=== PATIENT | female | born 1935 | race Caucasian/White ===

== ENCOUNTER 2022-02-03 06:41 | Observation (INO) ==
--- NOTE | 2021-12-29 11:49 | PAT Medication Instructions ---
Medication Instructions Date of Service December 29, 2021 Home Medications Medication Instructions Recorded zolpidem 10 mg tablet 5 mg PO HS PRN #15 tab 11/12/21 cholecalciferol (vitamin D3) 50 mcg (2,000 unit) capsule 50 mcg PO QAM multivitamin 1 tab PO QAM rosuvastatin 20 mg tablet 20 mg PO HS zolpidem 10 mg tablet 5 mg PO HS PRN diclofenac sodium 1 % topical gel (Voltaren Arthritis Pain) 4 g TOPICAL QID PRN telmisartan 80 mg-hydrochlorothiazide 25 mg tablet 1 tab PO QAM tramadol 50 mg tablet 50 mg PO BID PRN STOP taking 24 hours before surgery diclofenac sodium 1 % topical gel (Voltaren Arthritis Pain) 4 g TOPICAL QID PRN DO NOT take the morning of surgery cholecalciferol (vitamin D3) 50 mcg (2,000 unit) capsule 50 mcg PO QAM multivitamin 1 tab PO QAM telmisartan 80 mg-hydrochlorothiazide 25 mg tablet 1 tab PO QAM Take morning of surgery With a small sip of water, OTHERWISE NOTHING TO EAT OR DRINK AFTER MIDNIGHT: tramadol 50 mg tablet 50 mg PO BID PRN (if needed) Take evening before surgery rosuvastatin 20 mg tablet 20 mg PO HS zolpidem 10 mg tablet 5 mg PO HS PRN (if needed) tramadol 50 mg tablet 50 mg PO BID PRN (if needed) Other Notes If you have any questions please call us at [phone] or [phone] or [phone] or [phone]
--- NOTE | 2021-12-31 14:18 | Anesthesiology Consultation ---
Date of Service December 31, 2021 Assessment & Plan (1) Encounter for pre-operative examination: Chart Review Chart Review: Acceptable Risk for Surgery (pending surgeon ordered PCP clearance and preop Covid testing results ) and Patient seen in Pre Admission Testing Awaiting surgeon ordered PCP clearance scheduled 01/07/22 Per PAT appt on 12/31/21, patient denies any recent travel or large group activities. No known Covid positive exposures or Covid related symptoms. No known Covid infection in the past 90 days. Pt is vaccinated for Covid. Preop Covid testing scheduled 01/18/22 = will await results. Educated on importance of self quarantining, social distancing and wearing mask in public for the patient one week prior to surgery and after Covid testing done Teaching & Discussion Pre-Anesthesia Teaching/Discussion Notes: Instructed NPO after midnight before surgery,except medications with 15 cc of water. Medication instructions provided according to the PAT guidelines. History Surgery Operation Date: 01/20/22 09:20 Proposed Procedures p Right Total Knee Arthroplasty - Baldemar Workman MD Height/Weight Height: 5 ft 4 in Weight: 89.6 kg Allergies Allergy/AdvReac Type Severity Reaction Status Date / Time neomycin Allergy Mild Verified 12/29/21 08:38 Sulfa (Sulfonamide Allergy Mild GI Verified 12/31/21 14:21 Antibiotics) upset/colitis Medications Home Medications Medication Instructions Recorded Confirmed Last Taken cholecalciferol (vitamin D3) 50 50 mcg PO QAM 09/02/21 12/29/21 Unknown mcg (2,000 unit) capsule multivitamin 1 tab PO QAM 09/02/21 12/29/21 Unknown rosuvastatin 20 mg tablet 20 mg PO HS 09/02/21 12/29/21 Unknown diclofenac sodium 1 % topical gel 4 g TOPICAL QID PRN 12/29/21 12/29/21 Unknown (Voltaren Arthritis Pain) telmisartan 80 1 tab PO QAM 12/29/21 12/29/21 Unknown mg-hydrochlorothiazide 25 mg tablet tramadol 50 mg tablet 50 mg PO BID PRN 12/29/21 12/29/21 Unknown zolpidem 10 mg tablet 5 mg PO HS PRN #15 tab 12/29/21 Unknown Past Medical History Medical History Diverticulitis September 2021 No current issues Heart murmur, systolic No significant valve disease per 12/01/21 ECHO (only mild mitral annular calcification/MV leaflets appear thickened but open well) HTN (hypertension) Hx of gastroesophageal reflux (GERD) Well controlled and stable Hx of hiatal hernia Hyperlipidemia Osteopenia Prediabetes Hgb A1C 5.7 on 09/02/21 Sleep apnea Hx; "lost weight, no longer need my machine" Did not get additional sleep study Exercise / Class Metabolic Activity III < 4 Walking/Shop/Light housework (no chest pain or SOB with flat surface ambulation ) Past Family History Family History Sister Breast cancer Other Heart disease Denies family history of Ovarian cancer Prostate cancer Lung cancer Colorectal cancer Past Surgical History Surgical History History of esophagogastroduodenoscopy (EGD) History of open reduction and internal fixation (ORIF) procedure rt ankle Hx of appendectomy Hx of cataract extraction rt/lt Hx of colonoscopy S/P cholecystectomy S/P tonsillectomy S/P tubal ligation Status post total left knee replacement Past Anesthesia History No Hx of Anesthesia Complications and No Family Hx of Anesthesia Complications History of PONV No Hx of PONV and No Hx of Motion Sickness Social History Smoking Status: Former smoker Do You Dip or Chew Tobacco: No Smoking End Date: Quit 50 years ago Hx Alcohol Use: No Hx Substance Use: No substance use type: does not use Review of Systems Mild occ palpitations- associated with anxiety- pt's last year and patient had to move in with daughter- anxiety improving recently- does have mild increase with upcoming surgery Patient denies chest pain, shortness of breath, dyspnea on exertion, cough, wheezing. No hx of seizures, stroke, IA. No hx of blood clots or blood transfusions Physical Exam Vital Signs VITALS BP 114/74 P 68 TEMP 98.0 SP02 99% RESP 16 Constitutional no acute distress ENMT Mouth: no TMJ clicking Thyromental Distance: > or= 3.5 Finger Breadths (3.5) Mallampati Class: II Full upper dentures Missing bottom side teeth and molars Neck + limited neck extension (mild ) Respiratory normal respiratory effort; no respiratory distress Auscultation: lungs clear to auscultation bilaterally; no wheezes Cardiovascular Rate/Rhythm: regular rate and regular rhythm Heart Sounds: + murmur (III/ murmur ) Vessels: no carotid bruit Musculoskeletal Spine: no pain with cervical ROM Extremities: extremities normal to inspection Psychiatric Orientation: alert Lab Results Anesthesia Preop Results Results Anesthesia Widget: WBC 4.65 K/ul (4.8-10.8) L 12/31/21 Hgb 13.4 g/dl (12.0-16.0) 12/31/21 Hct 39.1 % (34.1-44.9) 12/31/21 Plt 238 K/uL (130-400) 12/31/21 Na 133 mmol/L (136-145) L 12/31/21 K 4.1 mmol/L (3.5-5.1) 12/31/21 Cl 97 mmol/L (98-107) L 12/31/21 CO2 30 mmol/L (21-32) 12/31/21 BUN 18 mg/dl (6-23) 12/31/21 Creat 0.67 mg/dl (0.6-1.2) 12/31/21 Glucose Level 95 mg/dl (70-99(Fasting)) 12/31/21 PT 10.7 Seconds (9.0-12.0) 12/31/21 PTT 26.1 Seconds (21.0-31.0) 12/31/21 INR 1.0 (0.9-1.1) 12/31/21 HA1c 5.8 % (4.5-5.6) H 12/31/21 Urine Color Yellow 12/31/21 Urine Appearance Clear (Clear) 12/31/21 Urine pH 5.5 (4.5-7.5) 12/31/21 Urine Specific [place] 1.015 (1.000-1.030) 12/31/21 Urine Protein Negative (Negative) 12/31/21 Urine Glucose (UA) Negative (Negative) 12/31/21 Urine Ketones 1+ (Negative) H 12/31/21 Urine Blood Negative (Negative) 12/31/21 Urine Nitrite Negative (Negative) 12/31/21 Urine Bilirubin Negative (Negative) 12/31/21 Urine Urobilinogen Negative (Negative) 12/31/21 Urine Leukocyte Esterase Trace (Negative) H 12/31/21 Urine WBC (Auto) 1-5 /hpf (0-5) 12/31/21 Urine RBC (Auto) 0-4 /hpf (0-4) 12/31/21 Urine Hyaline Casts (Auto) 1-5 /lpf (0-5) 12/31/21 Urine Epithelial Cells (Auto) >30 /lpf (0-5) H 12/31/21 Urine Bacteria (Auto) Negative (Negative) 12/31/21 Blood Type O Positive 12/31/21 Antibody Screen NEGATIVE 12/31/21 Testing Electrocardiogram Date: 12/31/21 Findings: + NSR @ (66bpm ) Normal EKG per cardio. Chest X-Ray Date: 12/31/21 Findings: + NAD Echocardiogram Date: 12/01/21 EF: 55 to 60% LV Function: normal RWMA: + none Other Findings: no LVH Mild mitral annular calcification. Mitral valve leaflets appear thickened, but open well.
--- NOTE | 2022-01-11 16:45 | History & Physical Report ---
Date of Service January 11, 2022 Assessment & Plan (1) Right knee DJD: Plan: Postoperative prescriptions for Percocet and Coumadin will be provided at discharge from the hospital. Anticipate discharge to home with home health services. She states she would like to go to [facility]. We had a long discussion about it. She would like to try that as her first option, but if she is not approved, she is willing to go home with home health. The patient already has a walker. She will bring it to the hospital the day of surgery. PDMP was checked and there are no concerning findings. She is aware of COVID-19 risks associated with surgery. She is currently asymptomatic of any COVID-19 symptoms. She will obtain nasal swab testing 2 days prior to surgery. Prescription was provided. She will attend PAT today for preoperative lab work, EKG and chest x-ray. She has an appointment to see her PCP for medical clearance. Follow up for staple removal with me on February 04 at 1:00 p.m. History of Present Illness Chief Complaint: Right knee pain Primary Care Provider: Coral Hampton MD This 86-year-old female presents with her daughter, for her preoperative history and physical. She is scheduled to undergo a right knee total knee arthroplasty on 01/20/2022. The patient has had right knee pain for the last 6- 7 years. She states it should have been replaced several years ago, but she was caring for her ill and did not have the downtime available. He has recently and she now elects to proceed with surgery. She denies any catching or locking. No buckling. She denies any loss of motion. Pain is worse with weightbearing. It is affecting her ADLs. She previously had a left knee total knee arthroplasty done in [place] many years ago. She has done well with it and elects to proceed with the same on the right. No numbness or tingling. There is night pain. Preoperative imaging has been obtained. Allergies Allergy/AdvReac Type Severity Reaction Status Date / Time neomycin Allergy Mild Verified 01/07/22 11:17 Sulfa (Sulfonamide Allergy Mild GI Verified 01/07/22 11:17 Antibiotics) upset/colitis Home Medications Medication Instructions Recorded Confirmed Type cholecalciferol (vitamin D3) 50 50 mcg PO QAM 09/02/21 01/07/22 History mcg (2,000 unit) capsule multivitamin 1 tab PO QAM 09/02/21 01/07/22 History rosuvastatin 20 mg tablet 20 mg PO HS 09/02/21 01/07/22 History diclofenac sodium 1 % topical gel 4 g topical QID PRN Pain 12/29/21 01/07/22 History (Voltaren Arthritis Pain) telmisartan 80 1 tab PO QAM 12/29/21 01/07/22 History mg-hydrochlorothiazide 25 mg tablet tramadol 50 mg tablet 50 mg PO BID PRN Pain 12/29/21 01/07/22 History zolpidem 10 mg tablet 5 mg PO HS PRN insomnia #15 tabs 12/29/21 01/07/22 Rx Past Med/Surg History Medical History (Updated 01/11/22 @ 16:44 by Renzo Worley PA-C) Diverticulitis September 2021 No current issues Heart murmur, systolic No significant valve disease per 12/01/21 ECHO (only mild mitral annular calcification/MV leaflets appear thickened but open well) HTN (hypertension) Hx of gastroesophageal reflux (GERD) Well controlled and stable Hx of hiatal hernia Hyperlipidemia Osteoarthritis Osteopenia Prediabetes Hgb A1C 5.7 on 09/02/21 Sleep apnea Hx; "lost weight, no longer need my machine" Did not get additional sleep study Surgical History History of esophagogastroduodenoscopy (EGD) History of open reduction and internal fixation (ORIF) procedure rt ankle Hx of appendectomy Hx of cataract extraction rt/lt Hx of colonoscopy S/P cholecystectomy S/P tonsillectomy S/P tubal ligation Status post total left knee replacement Family History Sister Breast cancer Other Heart disease Denies family history of Ovarian cancer Prostate cancer Lung cancer Colorectal cancer Social History Smoking Status: Former smoker Second Hand Exposure: No; Hx Alcohol Use: No Hx Substance Use: No Preferred Language: Paraguayan Communication Ability: Effective 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 Physical Exam Physical Exam: Vitals: Height is 162.5 cm, weight 90 kilograms, BMI 34.1, temperature 36.4, BP 124/58, pulse 70, and O2 sat 96% on room air. General: Well-developed, well-nourished, elderly white female in no acute di stress. Sitting in a chair. Alert and oriented. Skin: Warm and dry with good turgor. No rashes, no ecchymosis or erythema. No edema. No intraarticular effusion. HEENT: Normocephalic, atraumatic. Eyes: PERRLA, EOMI. Nares and oropharynx exams deferred due to COVID precautions. Heart: RRR, 2/6 systolic ejection murmur noted. No gallops or rubs. Murmur is best heard at left sternal border. Lungs: Clear to auscultation bilaterally. No crackles, rhonchi or wheezing. Good air movement. Abdomen: Moderately obese. Bowel sounds present x4, soft, nontender. No organomegaly. No masses. Musculoskeletal: Right knee evaluation reveals no intraarticular effusion. She has full terminal extension. Flexion to greater than 100 degrees. Strength is 5/5 with fair quad tone. Stable collateral ligaments. No defect in the patellar tendon or quadriceps tendon. She does have focal pain with palpation over the medial and lateral joint lines. They are both painful equally. Ambulates today with an antalgic gait. The patient has a valgus knee position. Neurologic: Gross sensation is intact across the right leg by soft touch. Peripheral pulses are 2+. Results & Data Results & Data ([facility]) Diagnostic Findings Radiographic imaging previously obtained of the knee shows end-stage DJD with erosion of the femoral condyle. Periarticular osteophytes, subchondral sclerosis, and joint space narrowing are all present. Code Status & VTE Plan VTE Prophylaxis Plan VTE Prophylaxis will be ordered: Yes
--- NOTE | 2022-01-26 15:41 | History & Physical Report ---
Date of Service January 26, 2022 Assessment & Plan (1) Right knee DJD: Plan: Postoperative prescriptions for Percocet and Coumadin will be provided at discharge from the hospital. Anticipate discharge to home with home health services. She would really like to go to [facility]. If this is a viable option, she would like this as her first choice. She is willing to go home with home health if not. She already has a walker. She will bring it to the hospital the day of surgery. PDMP was checked and there are no concerning findings. She is aware of the COVID-19 risks associated with surgery. She is currently asymptomatic of any COVID-19 symptoms. She will obtain nasal swab testing 2 days prior to surgery. She has already attended PAT for lab work, EKG, and chest x-ray. She has already received medical clearance. Follow up for staple removal with me on 02/25 at 2:30 p.m. Call with any other concerns. History of Present Illness Chief Complaint: Right knee pain Primary Care Provider: Coral Hampton MD This 87-year-old female presents with her daughter, for her preoperative history and physical. She was previously scheduled to undergo a right total knee arthroplasty on 01/20/2022. Her surgery was delayed because of COVID. She is now scheduled for February 03. She feels she is ready to undergo the right total knee arthroplasty. Her H&P needed to be updated due to time elapse. She has had right knee pain for the last 6-7 years. She states it should have been replaced several years ago, but she was caring for her ill and did not have the downtime available. He has recently and she now elects to proceed with surgery. She denies any catching or locking. No buckling. She denies any loss of motion. Pain is worse with weightbearing. It is affecting her ADLs. She had a previous left knee total knee arthroplasty done in [place] many years ago. She has done well with it and elects to proceed with the same on the right. No numbness or tingling. She does have night pain. Preoperative imaging has been obtained. Allergies Allergy/AdvReac Type Severity Reaction Status Date / Time neomycin Allergy Mild Verified 01/07/22 11:17 Sulfa (Sulfonamide Allergy Mild GI Verified 01/07/22 11:17 Antibiotics) upset/colitis Home Medications Medication Instructions Recorded Confirmed Type cholecalciferol (vitamin D3) 50 50 mcg PO QAM 09/02/21 01/07/22 History mcg (2,000 unit) capsule multivitamin 1 tab PO QAM 09/02/21 01/07/22 History rosuvastatin 20 mg tablet 20 mg PO HS 09/02/21 01/07/22 History diclofenac sodium 1 % topical gel 4 g topical QID PRN Pain 12/29/21 01/07/22 History (Voltaren Arthritis Pain) telmisartan 80 1 tab PO QAM 12/29/21 01/07/22 History mg-hydrochlorothiazide 25 mg tablet tramadol 50 mg tablet 50 mg PO BID PRN Pain 12/29/21 01/07/22 History zolpidem 10 mg tablet 5 mg PO HS PRN insomnia #15 tabs 12/29/21 01/07/22 Rx Past Med/Surg History Medical History (Updated 01/11/22 @ 16:44 by Renzo Worley PA-C) Diverticulitis September 2021 No current issues Heart murmur, systolic No significant valve disease per 12/01/21 ECHO (only mild mitral annular calcification/MV leaflets appear thickened but open well) HTN (hypertension) Hx of gastroesophageal reflux (GERD) Well controlled and stable Hx of hiatal hernia Hyperlipidemia Osteoarthritis Osteopenia Prediabetes Hgb A1C 5.7 on 09/02/21 Sleep apnea Hx; "lost weight, no longer need my machine" Did not get additional sleep study Surgical History History of esophagogastroduodenoscopy (EGD) History of open reduction and internal fixation (ORIF) procedure rt ankle Hx of appendectomy Hx of cataract extraction rt/lt Hx of colonoscopy S/P cholecystectomy S/P tonsillectomy S/P tubal ligation Status post total left knee replacement Family History Sister Breast cancer Other Heart disease Denies family history of Ovarian cancer Prostate cancer Lung cancer Colorectal cancer Social History Smoking Status: Former smoker Second Hand Exposure: No; Hx Alcohol Use: No Hx Substance Use: No Preferred Language: Italian Communication Ability: Effective 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 Pulse is 70. General: Well-developed, well-nourished, elderly white female in no acute distress. Sitting in a chair. Alert and oriented. Skin: Warm and dry with good turgor. No rashes or lesions. No ecchymosis or erythema. No edema. No intraarticular effusion. HEENT: Normocephalic, atraumatic. Eyes: PERRLA, EOMI. Nares and oropharynx exams deferred due to COVID precautions. Heart: RRR. 2/6 systolic ejection murmur noted. No gallops or rubs. Murmur is best heard at the left sternal border. Lungs: Clear to auscultation bilaterally. No crackles, rhonchi or wheezing. Good air movement. Abdomen: Moderately obese. Bowel sounds present x4, soft, nontender. No organomegaly. No masses. Musculoskeletal: Right knee evaluation reveals no intraarticular effusion. There is full terminal extension. Flexion to 105 degrees. Strength is 5/5 with fair quad tone. Stable collateral ligaments. No defect in the patellar tendon or quadriceps tendon. There is focal pain with palpation over the medial and lateral joint lines. They are painful equally. She is ambulating today with an antalgic gait using a cane. There is a valgus knee position. Neurologic: Gross sensation is intact across the right leg by soft touch. Peripheral pulses are 2+. Results & Data Results & Data ([facility]) Diagnostic Findings Radiographic imaging previously obtained of the knee shows end-stage DJD with erosion of the femoral condyle. Periarticular osteophytes, subchondral sclerosis, and joint space narrowing are all present. Code Status & VTE Plan VTE Prophylaxis Plan VTE Prophylaxis will be ordered: Yes
--- NOTE | 2022-02-03 06:34 | History & Physical Bridge Note ---
Date of Service February 03, 2022 History & Physical Bridge Note I have examined the patient, reviewed the History & Physical and in the interval since the performance of the History & Physical I have noted the following changes of clinical significance: consent obtained/site verified/covid screen negative.no changes noted
[~2022-02-03 06:41] MED LIST: BUPIVACAINE 0.5 % 5 MG/1 ML PF 10ML VIAL ONE; LR 500ML BOLUS, THEN 15ML/HR IV SCH; LR 60ML/HR IV SCH; ROPIVACAINE 0.5% 5 MG/ML 30 ML VIAL ONE; ROPIVACAINE 0.5% HCL/PF 150 MG, BUPIVACAINE 0.75% MPF 20 ML, EPINEPHrine 0.15 MG, Ketor... INFIL SCH; TRANEXAMIC ACID 1,000 MG **IV Pre-op IV SCH; ceFAZolin 2000MG 2,000 MG/15 ML SYR IV SCH
[2022-02-03] MEDS ORDERED: fentaNYL citrate 100 MCG/2 ML VIAL ONE (07:55)
[2022-02-03] MEDS ORDERED: ONDANSETRON INJ 2 MG/ML 2 ML VIAL ONE (07:55)
[2022-02-03] MEDS ORDERED: ePHEDrine sulfate 50 MG/ML AMP IV PRN (08:19)
[2022-02-03] MEDS ORDERED: fentaNYL citrate 100 MCG/2 ML VIAL IV PRN (08:19)
[2022-02-03] MEDS ORDERED: ATROPINE SULFATE 0.1 MG/ML 10ML SYR IV PRN (08:19)
[2022-02-03] MEDS ORDERED: ONDANSETRON INJ 2 MG/ML 2 ML VIAL IV PRN ×2 (08:19→11:33)
[2022-02-03] MEDS ORDERED: ORTHO JOINT ANESTHETIC ONE (08:37)
[2022-02-03] MEDS ORDERED: PROPOFOL IV EMULSION 10 MG/ML 20 ML VIAL IV ONE ×2 (09:17→09:29)
[2022-02-03] MEDS ORDERED: ePHEDrine sulfate 50 MG/ML SYR ONE (10:01)
--- NOTE | 2022-02-03 10:20 | Post Operative Brief Note ---
Immediate Post Op Note v1 Date of Surgery February 03, 2022 Pre & Post Diagnosis Operation Date: 02/03/22 08:50 Pre-Op Diagnosis: Right Knee Osteoarthritis Post-Op Diagnosis: Right Knee Osteoarthritis I identified the patient and participated in the time-out.: Yes Procedure Operation Date: 02/03/22 08:50 Actual Procedures p Right Total Knee Arthroplasty(Right) - Baldemar Workman MD Surgeon Baldemar Workman MD Helper Electrical mami/Meir Estimated Blood Loss 50 Findings Consistent with Post-Op Diagnosis severe DJD
--- NOTE | 2022-02-03 10:33 | Operative Report ---
Post Operative Report Pre & Post Diagnosis Operation Date: 02/03/22 08:50 Pre-Op Diagnosis: Right Knee Osteoarthritis Post-Op Diagnosis: Right Knee Osteoarthritis I identified the patient and participated in the time-out.: Yes Procedure Operation Date: 02/03/22 08:50 Actual Procedures p Right Total Knee Arthroplasty(Right) - Baldemar Workman MD Surgeon ROSLYN Workman MD Tape Machine Tailer mami/Mier MCKEON Estimated Blood Loss 50 Findings Consistent with Post-Op Diagnosis see operative report Specimens see operative report Drains none Complications none Disposition Accompanied Patient To Recovery: Yes Indications This 87-year-old female presented to the office with complaints of persisting right knee pain. She had tried conservative care measures without improvement. She elected to proceed with surgical intervention after being educated about potential risks and outcomes. Preoperative imaging was obtained. Description of Procedure Patient was administered a spinal anesthetic and then taken to the operating room where she was given sedation. She was prepped and draped in the usual sterile fashion. Please see Dr. Workman's operative report for specifics of the procedure. I was present for the entire case from initial patient positioning through final wound closure. Assistance was provided in tissue retr action, hemostasis, trial implant placement, final implant placement, and final wound closure. Patient was taken to the recovery room in satisfactory condition. I attest to the content of the Intraoperative Record and any orders documented therein. Any exceptions are noted below.
--- NOTE | 2022-02-03 10:43 | Anesthesiology Progress Note ---
Date of Service February 03, 2022 Anesthesia Post Procedure Vital Signs Vital Signs: Temp Pulse Resp BP Pulse Ox O2 Del Method 02/03/22 07:00 98.1 F 72 20 148/67 H 99 Room Air Pain Intensity Right Knee: Pain Intensity: 4 Transfer of Care Handoff Completed per policy Notes Mental Status: alert / awake / arousable and participated in evaluation Patient Amnestic to Procedure: Yes Nausea / Vomiting: adequately controlled Pain: adequately controlled Airway Patency, RR, SpO2: stable & adequate BP & HR: stable & adequate Hydration State: stable & adequate Neuraxial Anesthesia: was administered and sensory block is resolving Anesthetic Complications: no major complications apparent and Pt Satisfied with anesthetic care
--- NOTE | 2022-02-03 10:46 | Progress Notes ---
SUBJECTIVE: Status post right total knee replacement. The patient is resting comfortably. Denies a ny chest pain, shortness of breath, fever, chills, nausea, vomiting or headache. OBJECTIVE: Vital signs are stable. She is afebrile. Neurovascular check is limited by spinal. Wound dressing clean, dry and intact. Calf is nontender. ASSESSMENT AND PLAN: Status post right total knee replacement. Continue with care pathway. Potenti al discharge tomorrow. Job ID: [id number]
[2022-02-03] MEDS ORDERED: bisacodyL 10 MG SUPP PR PRN (11:33)
[2022-02-03] MEDS ORDERED: SODIUM CHLORIDE 0.9% 1000ML 1,000 ML IV SCH (11:33)
[2022-02-03] MEDS ORDERED: NALOXONE HCL 0.4 MG/1 ML VIAL/CARP IV PRN (11:33)
[2022-02-03] MEDS ORDERED: VANCOMYCIN CONSULT ACTIVE PRN (11:33)
[2022-02-03] MEDS ORDERED: MAGNESIUM HYDROXIDE SUSP 30 ML UDC PO PRN (11:33)
[2022-02-03] MEDS ORDERED: diphenhydrAMINE 50 MG/ML VIAL IV PRN (11:33)
[2022-02-03] MEDS ORDERED: HYDROmorphone INJ 0.5 MG/0.5 ML SYR IV PRN (11:33)
[2022-02-03] MEDS ORDERED: METOCLOPRAMIDE HCL INJ 5 MG/ML 2 ML VIAL IV PRN (11:33)
[2022-02-03] MEDS ORDERED: ZOLPIDEM TARTRATE 5 MG TAB PO PRN (11:33)
[2022-02-03] MEDS ORDERED: ALUMINUM/MAGNESIUM SUSP 30 ML UDC PO PRN (11:33)
--- NOTE | 2022-02-03 11:49 | Operative Report (OR) ---
DATE OF PROCEDURE: 02/03/2022. SURGEON: Baldemar Workman MD. HEAVY COIL WINDER: Jose Tomlinson DO., Orthopedic fellow and Renzo Worley PA-C. PREOPERATIVE DIAGNOSES: Osteoarthritis with valgus deformity, right knee. POSTOPERATIVE DIAGNOSES: Osteoarthritis with valgus deformity of right knee. OPERATION PERFORMED: Cemented right total knee replacement. PERIOPERATIVE SITUATION: Medically cleared female with intractable knee pain with valgus deformity, end-stage disease wished to proceed with surgical treatment. She understands the risks and consequen viktoriya including how this may affect her already deformed foot. DESCRIPTION OF PROCEDURE: The patient was appropriately identified, site verified, consent verified. Antibiotics confirmed as being given. The right lower extremity was prepped and draped in the usua l routine fashion. Tourniquet was inflated to 300 mmHg after exsanguination of the limb with a rubbe r Esmarch bandage for a total of roughly 48 minutes. Midline exposure was utilized. Parapatellar ar throtomy performed. Osteophytes resected. Distal femur entered. Cruciates resected. Tibia was sub luxated, menisci resected. There was a stage IV disease throughout the entire lateral compartment. Distal femur was resected 12 mm, proximal tibia 4 mm, the extension gap was excellent. Femur was siz ed between 3 and a 2.5, was measured 3, cut 2.5. There was no notching. The flexion gap was excelle nt. The box cut was then made. The tibia was broached and reamed to a size 3. Spacer with a 10 mm insert, posterior cruciate substituting was excellent. The patella tracked well. The patella was resected leaving 14 mm and a 35 trial button seated, it tracked well. The Orthomix was then injected all about the knee including posteriorly. The wound was then irrigated with Betad ine and Pulsavac, and then the permanent cemented in position tibia, femur, and patella in that order . At 12 minutes, the tourniquet deflated. Minor bleeding occurred was controlled well. Blood loss was 50 mL or less. After 14 minutes, the knee was flexed. The implant removed. No cement removal w as required. The wound was irrigated with Betadine and Pulsavac, and then the permanent liner seated . The knee reduced and closed at 30-40 degrees of flexion with #2 Vicryl, 2-0 Vicryl and stainless s bryan clips. Appropriate dressing applied. The patient was transferred to recovery room in satisfact ory condition, having tolerated the procedure well. PATHOLOGY: Pending on bone. DVT PROPHYLAXIS: Per protocol. ESTIMATED BLOOD LOSS: 50 mL. CRYSTALLOID: Per anesthesia. SUMMARY OF IMPLANTS: Size 2.5 right femur posterior cruciate substituting size 3 tray, size 2.5 x 10 mm insert, rotating platform size 35 patella, 2 bags of Palkofis ez Mandel and J rotating platform tot al knee replacement. Job ID: [id number]
[2022-02-03] MEDS ORDERED: VANCOMYCIN HCL 1,250 MG in SODIUM CHLORIDE 0.9% 250 ML IV ONE (12:45)
--- NOTE | 2022-02-03 13:17 | XRay Report ---
XR knee RT 1 or 2V routine HISTORY: 87 years-old Female S/P R TKA right knee total joint arthroplasty COMPARISON: Right knee radiograph 11/02/2021 TECHNIQUE: 2 views of the right knee FINDINGS: Satisfactory alignment of the right knee total joint arthroplasty. Patellar resurfacing. Anterior mid line skin bisi are noted along with expected postoperative soft tissue swelling with deep tissue a ir. No acute fracture or unexpected opaque foreign body. IMPRESSION: Total joint arthroplasty with expected postoperative changes. ACT 112: Negative or not required by law. The above report was generated using voice recognition software. It may contain grammatical, syntax o r spelling errors. Electronically signed by: Barak Herrera M.D. 02/03/2022 1:16 PM
[2022-02-03] MEDS: KETOROLAC TROMETHAMINE 15 MG/ML VIAL IV SCH ×3 (13:54→23:28)
[2022-02-03] MEDS ORDERED: ORTHO WARFARIN NOMOGRAM SCH (14:00)
[2022-02-03] MEDS: ACETAMINOPHEN 500 MG TAB PO SCH ×2 (14:07→21:51)
--- NOTE | 2022-02-03 14:11 | Discharge Summary (DS) ---
DATE OF ADMISSION: 02/03/2022. DATE OF POTENTIAL DISCHARGE: 02/04/2022. CHIEF COMPLAINT: Right knee pain. HISTORY OF PRESENT ILLNESS: The patient underwent elective right total knee replacement. To date, h ospital course has been uneventful. She is 87 years old. She lives with her daughter. She needs a knee replacement based on severe valg us deformity and pain. ALLERGIES: NEOMYCIN, SULFA. MEDICATIONS: In preadmission include vitamin D, multivitamin, rosuvastatin, diclofenac gel, telmisart an, tramadol, and zolpidem. PAST MEDICAL HISTORY: Remarkable for diverticulitis, systolic heart murmur, hypertension, GERD, hiat al hernia, hyperlipidemia, osteoarthritis, osteopenia, prediabetes, sleep apnea. PAST SURGICAL HISTORY: Remarkable for appendectomy, cataracts, colonoscopies, tonsillectomy, cholecy stectomy, tubal ligation, left knee replacement, ankle ORIF on the right. FAMILY HISTORY: Remarkable for breast cancer, heart disease. No other issues. SOCIAL HISTORY: Reveals she is a former smoker. Speaks British. She is a . She has a daugh ter. She previously worked as a home health aide. She wears dentures and glasses. REVIEW OF SYSTEMS: Noncontributory. ASSESSMENT: Status post right total knee replacement for valgus deformity. At this point in time, jose elias salgadong well. Continue with care pathway. Potential discharge tomorrow. Job ID: [id number]
[2022-02-03] MEDS ORDERED: WARFARIN SOD 5 MG TAB PO ONE (16:00)
[2022-02-03] MEDS ORDERED: TRANEXAMIC ACID / 0.7% NACL 1,000 MG/100 ML BAG IV SCH (16:45)
[2022-02-03] MEDS: oxyCODONE HCL IR 5 MG TAB (IMMEDIATE RELEASE) PO PRN ×2 (17:17→20:43)
[2022-02-03 17:41] LABS: Prothrombin Time 10.8 Seconds (9.0-12.0)
[2022-02-03] MEDS: FERROUS GLUCONATE 324 MG TAB PO SCH (17:56)
[2022-02-03] MEDS: ASCORBIC ACID 500 MG TAB PO SCH (17:56)
[2022-02-03] MEDS: ceFAZolin 2000MG 2,000 MG/15 ML SYR IV SCH ×2 (18:25→23:31)
[2022-02-03] MEDS: DOCUSATE SODIUM 100 MG CAP PO SCH (20:10)
[2022-02-03] MEDS ORDERED: SENNA 8.6 MG TAB PO SCH (21:00)
[2022-02-03] MEDS ORDERED: ROSUVASTATIN CALCIUM 20 MG TAB PO SCH (21:00)
[2022-02-04] MEDS: oxyCODONE HCL IR 5 MG TAB (IMMEDIATE RELEASE) PO PRN ×2 (03:38→08:15)
[2022-02-04] MEDS: ACETAMINOPHEN 500 MG TAB PO SCH (05:44)
[2022-02-04] MEDS: KETOROLAC TROMETHAMINE 15 MG/ML VIAL IV SCH (05:45)
[2022-02-04 06:19] LABS: Hematocrit (blood only) 33.5 % (34.1-44.9); Hemoglobin 11.7 g/dl (12.0-16.0); Mean Corpuscular Hemoglobin 32.1 pg (25.0-34.0); Mean Corpuscular Hgb Conc 34.9 g/dL (32.0-36.0); Mean Platelet Volume 9.8 fL (9.4-12.3); Platelet Count 208 K/uL (130-400); RDW Standard Deviation 44.2 fL (36.4-46.3); Red Blood Count 3.64 M/uL (3.93-5.22); White Blood Count 11.08 K/ul (4.8-10.8)
[2022-02-04 06:28] LABS: INR 1.1 (0.9-1.1); Prothrombin Time 11.5 Seconds (9.0-12.0)
[2022-02-04 06:54] LABS: BUN Creatinine Ratio 26.3 (10-20); Calcium 8.7 mg/dl (8.5-10.1); Creatinine Clr Calc Pharmacy 53.5 ml/min; Est GFR (African American) 76.8 ml/min; Est GFR (Non-African American) 66.3 ml/min; Potassium 3.8 mmol/L (3.5-5.1)
--- NOTE | 2022-02-04 07:28 | Progress Notes ---
SUBJECTIVE: Postop check status post right total knee replacement. The patient is doing well, sitti ng up in bed, has no issues. She denies chest pain, shortness of breath, fever, chills, nausea, vomi ting or headache. OBJECTIVE: Vital signs are stable. She is afebrile. Neurovascular check, femoral sciatic nerve is normal. Can do a straight leg raise. Can do ankle pum ps. She has no calf tenderness. LABORATORY DATA: Excellent. Hematocrit stable at 33.5. INR is 1.1. ASSESSMENT AND PLAN: Doing well. Discharged home today after PT/OT and dressing change. Coumadin p er nomogram. Follow up in 2 weeks. Job ID: [id number]
[2022-02-04] MEDS ORDERED: WARFARIN SOD 5 MG TAB PO SCH (07:30)
[2022-02-04] MEDS ORDERED: dexAMETHasone 10 MG in SYRINGE 0 ML IV SCH (08:00)
[2022-02-04] MEDS: ASCORBIC ACID 500 MG TAB PO SCH (08:05)
[2022-02-04] MEDS: FERROUS GLUCONATE 324 MG TAB PO SCH (08:06)
[2022-02-04] MEDS: DOCUSATE SODIUM 100 MG CAP PO SCH (08:06)
[2022-02-04] MEDS ORDERED: MULTIVITAMIN TAB PO SCH (09:00)
[2022-02-04] MEDS ORDERED: LOSARTAN POTASSIUM 50 MG TAB PO SCH (09:00)
[2022-02-04] MEDS ORDERED: hydroCHLOROthiazide 25 MG TAB PO SCH (09:00)
--- NOTE | 2022-02-04 09:00 | Orthopedic Progress Note ---
Date of Service February 04, 2022 Assessment & Plan (1) Status post total knee replacement, right: Plan: POD1 s/p total knee arthroplasty WBAT with walker PT/OT Diet - regular Frequently ice and elevate with blankets stacked under ankle DVT prophylaxis: Coumadin 2mg to begin after dinner this evening (INR this morning 1.1), TEDs Pain control: Tylenol 1000mg q 8hrs, oxycodone 5-10mg q4-6 hrs for moderate pain - will discharge on percocet Stool softener to prevent constipation Dressing was changed this morning and TEDs applied Discharge home today after PT with home health (Patient requesting [facility]) x 2 weeks Follow up as scheduled with [facility] in 2 weeks - 02/25 @ 230 with Renzo Worley PA-C Admission and Anticipated Discharge Date Admission Date: February 03, 2022 Subjective Pt was seen and examined bedside. POD #1 s/p right total knee arthroplasty by Dr Workman. Pt was admitted last night for observation. No major events over night. Vitals are stable. Labs unremarkable. X-rays show normal post operative changed. Pt reports they are doing well and pain is controlled. They are tolerating PO intake and voiding adequate amounts. Will be working with PT/OT. Pt denies F/C, N/V/D, SOB, CP. Pt deemed medically stable and ready for discharge after session with PT. Physical Exam Physical Exam: General: Pt laying in hospital bed AA&O, in NAD, calm and cooperative during exam Lower Extremity: Dressing in tact and not saturated. Incisions clean, dry and with minimal drainage and no surrounding erythema, warmth or purulent drainage. Pt has full ROM of ankle and all 5 digits. Pt has 5/5 strength with resisted DF/PF. SLR in tact. Calf supple and non tender. NVI with sensation to light touch distally and good distal pulses present. Lower extremity noted to have good color and temperature with no signs of vascular or lymphatic insufficiency. Dressing was changed today and TEDs applied. Results & Data ([facility]) Vital Signs (Past 12 Hours) Vital Signs Temp Pulse Resp BP Pulse Ox O2 Del Method 02/04/22 06:44 36.6 C 58 L 20 104/62 96 Room Air 02/04/22 03:33 36.7 C 60 18 105/64 97 Room Air 02/03/22 23:05 36.7 C 54 L 20 109/67 95 Room Air Laboratory Results 02/04/22 02/04/22 02/04/22 Range/Units 05:26 05:26 05:26 WBC 11.08 H (4.8-10.8) K/ul RBC 3.64 L (3.93-5.22) M/uL Hgb 11.7 L (12.0-16.0) g/dl Hct 33.5 L (34.1-44.9) % MCV 92.0 (80.0-100.0) fL MCH 32.1 (25.0-34.0) pg MCHC 34.9 (32.0-36.0) g/dL RDW Std Deviation 44.2 (36.4-46.3) fL RDW Coeff of Marisol 13.0 (11.5-14.5) % Plt Count 208 (130-400) K/uL MPV 9.8 (9.4-12.3) fL PT 11.5 (9.0-12.0) Seconds INR 1.1 (0.9-1.1) Sodium 131 L (136-145) mmol/L Potassium 3.8 (3.5-5.1) mmol/L Chloride 100 (98-107) mmol/L Carbon Dioxide 25 (21-32) mmol/L Anion Gap 6 (3-11) BUN 21 (6-23) mg/dl Creatinine 0.80 (0.6-1.2) mg/dl Est Cr Clr Drug Dosing 53.5 ml/min Est GFR ( Amer) 76.8 ml/min Est GFR (Non-Af Amer) 66.3 ml/min BUN/Creatinine Ratio 26.3 H (10-20) Glucose 111 H (70-99(Fasting)) mg/dl Calcium 8.7 (8.5-10.1) mg/dl 02/03/22 Range/Units 17:16 WBC (4.8-10.8) K/ul RBC (3.93-5.22) M/uL Hgb (12.0-16.0) g/dl Hct (34.1-44.9) % MCV (80.0-100.0) fL MCH (25.0-34.0) pg MCHC (32.0-36.0) g/dL RDW Std Deviation (36.4-46.3) fL RDW Coeff of Marisol (11.5-14.5) % Plt Count (130-400) K/uL MPV (9.4-12.3) fL PT 10.8 (9.0-12.0) Seconds INR 1.0 (0.9-1.1) Sodium (136-145) mmol/L Potassium (3.5-5.1) mmol/L Chloride (98-107) mmol/L Carbon Dioxide (21-32) mmol/L Anion Gap (3-11) BUN (6-23) mg/dl Creatinine (0.6-1.2) mg/dl Est Cr Clr Drug Dosing ml/min Est GFR ( Amer) ml/min Est GFR (Non-Af Amer) ml/min BUN/Creatinine Ratio (10-20) Glucose (70-99(Fasting)) mg/dl Calcium (8.5-10.1) mg/dl
== END 2022-02-04 11:55 | disposition home health service (06) ==
LOC: PACUINP 06:41 → ASU 06:41 → 3N 16:50

== ENCOUNTER 2024-05-07 09:21 | Inpatient (IN) ==
--- NOTE | 2024-05-07 09:29 | Emergency Department Note ---
Impression & Plan ST elevation (STEMI) myocardial infarction ADMIT ED Provider Note HPI: History obtained from patient and EMS report. The patient is a very pleasant 89-year-old female who presents the emergency department with a chief complaint of chest pain. EKG obtained in the field via EMS showed evidence of ST elevations in leads V1-V5 and a heart alert was activated from the field. On arrival here to the ED the patient is alert, she is saturating well on room air. She does complain of 9 out of 10 chest pain. Patient was given aspirin, morphine and Zofran in the field with some initial improvement in her pain. Patient notes that she is to be DNR/DNI CODE STATUS, however at this time she is agreeable for cardiac catheterization for further investigation of her ST elevation NE. ROS: - Per HPI Differential Diagnosis: Acute coronary syndrome/ST elevation myocardial infarction, aortic dissection, pneumothorax, esophagitis, pulmonary embolism,, amongst other potential pathologies. *Outpatient medications and allergy history reviewed. PE: General: Alert HEENT: Normocephalic, trachea midline Eyes: Extraocular eye movement is intact, no scleral erythema Pulmonary: Clear to auscultation bilaterally, no wheezing Cardio: Regular rate and rhythm GI: Abdomen is soft to palpation : No suprapubic tenderness MSK: No evidence of trauma or malformation of the extremities, no edema Skin: No evidence of rash Neuro: Alert, no focal deficits Psychiatric: Cooperative INDEPENDENT INTERPRETATIONS: school lunch monitor: (As interpreted by myself): - An order was placed for continuous cardiac monitoring - Patient was noted to be in sinus rhythm with a rate of 75 EKG: (As interpreted by myself): Rate: 73 Rhythm: Sinus rhythm Intervals: Within normal limits ST changes: ST elevation noted in leads V2, V3, V4, V5 consistent with ST elevation myocardial infarction Time: 926 Medical Decision Making: Patient presented to the emergency department with chest pain and EKG concerning for ST elevation myocardial infarction. Heart alert was activated from the field. On arrival here to the ED the patient is alert and in no apparent distress. She is saturating well on room air. Cardiac catheterization team including Dr. Joshua were at the bedside upon patient's arrival. Patient was in agreement for cardiac catheterization to be performed. Her CODE STATUS was updated to DNR/DNI following my conversation with the patient. Patient was given IV morphine and IV Zofran prior to arrival in addition to aspirin. Patient was transported to the cardiac catheterization lab in otherwise stable condition for further management. Patient's presentation was also discussed with the admitting hospitalist service, Bailey Jacobs PA-C to the service of Dr. Hill. Consultants/Discussions held with other healthcare providers: -Interventional cardiology, Dr. Joshua -Hospitalist, Dr. Hill Disposition discussion held by myself with: -Patient * CRITICAL CARE TIME: ( 36 ) minutes -Management of patient with ST elevation myocardial infarction requiring activation of heart alert and transportation to cardiac catheterization lab for further management. Discussion with other healthcare providers. Arrangement of admission. Interpretation of diagnostic studies including multiple EKGs. Diagnosis: 1. ST elevation myocardial infarction, acute 2. 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, right Right knee DJD HTN (hypertension) (Chronic) Insomnia (Chronic) Osteoarthritis (Chronic) Hyperlipidemia Medical History Osteoarthritis Prediabetes Hgb A1C 5.7 on 09/02/21 Diverticulitis September 2021 No current issues Hx of hiatal hernia Hx of gastroesophageal reflux (GERD) Well controlled and stable Sleep apnea Hx; "lost weight, no longer need my machine" Did not get additional sleep study Surgical History History of open reduction and internal fixation (ORIF) procedure rt ankle History of esophagogastroduodenoscopy (EGD) Hx of colonoscopy Hx of cataract extraction rt/lt Hx of appendectomy S/P tubal ligation S/P tonsillectomy S/P cholecystectomy Status post total left knee replacement Family History Sister Breast cancer Other Heart disease Denies family history of Ovarian cancer Prostate cancer Lung cancer Colorectal cancer Social History Smoking Status: Former smoker Tobacco Type: Cigarettes Age Started Using Tobacco: 25; Age Quit Using Tobacco: 56; packs per day: 1; Second Hand Exposure: No; Do You Dip or Chew Tobacco: No; Hx Alcohol Use: No Hx Substance Use: No Preferred Language: Georgian Communication Ability: Effective Aquaculturist Required: No Beliefs That Will Affect Care: Voodoo marital status: / Current Living Situation: Family Current Living Situation Comment: lives at home with daughter current occupational status: retired current occupation: worked as a home health aid Other Information That Helps Us Care for You: No Feels Safe at Home: Yes Safety Concerns: Feels Safe At This Time Childhood Exposure to Second-Hand Smoke: Yes Diet: regular caffeine: Yes Dental Care, Regularly: No Seatbelt Use: always Sunscreen Use: Yes Assistive Devices: Denture - Upper and Glasses Allergies Allergies Allergy/AdvReac Type Severity Reaction Status Date / Time neomycin Allergy Mild redness Verified 04/23/24 16:18 Sulfa (Sulfonamide Allergy Mild GI Verified 04/23/24 16:18 Antibiotics) upset/colitis Home Meds Home Medications Medication Instructions Recorded Confirmed cholecalciferol (vitamin D3) 50 50 mcg PO QAM 09/02/21 05/07/24 mcg (2,000 unit) capsule multivitamin 1 tab PO QAM 09/02/21 05/07/24 lactobacillus combination no.9 4 4,000 mmu cells PO DAILY 09/30/23 05/07/24 billion cell capsule (Adult 50 Plus Probiotic) Previous Rx's Medication Instructions Recorded diclofenac sodium 1 % topical gel 4 g topical QID PRN Pain #100 grams 11/19/22 (Voltaren Arthritis Pain) telmisartan 80 mg-amlodipine 5 mg 1 tab PO DAILY #30 tabs 07/21/23 tablet Results & Data (ED) Vital Signs Vital Signs - 24 hr 05/07/24 09:25 05/07/24 09:26 05/07/24 09:26 Temperature 36.5 C Temperature Source Oral Pulse Rate 76 Pulse Rate [Apical] Respiratory Rate 18 Respiratory Effort / Characteristics Short of Breath SOB on Exertion Blood Pressure 141/94 H Blood Pressure [Left Arm] Blood Pressure Mean 109 Blood Pressure Mean [Left Arm] Pulse Oximetry 98 98 Oxygen Delivery Method Room Air Room Air Sepsis Recent Fever Within 48 Hours No Sepsis New/Unexplained Change in Mental Status N/A Sepsis Action Taken by Nursing No Action Required 05/07/24 09:27 05/07/24 09:30 Temperature Temperature Source Pulse Rate Pulse Rate [Apical] 82 Respiratory Rate 17 Respiratory Effort / Characteristics Blood Pressure Blood Pressure [Left Arm] 158/89 H Blood Pressure Mean Blood Pressure Mean [Left Arm] 112 Pulse Oximetry 98 98 Oxygen Delivery Method Room Air Room Air Sepsis Recent Fever Within 48 Hours Sepsis New/Unexplained Change in Mental Status Sepsis Action Taken by Nursing Laboratory Data 05/07/24 11:34 05/07/24 09:30 Lab Results 05/07/24 Range/Units 09:30 WBC 7.54 (4.8-10.8) K/ul RBC 4.53 (4.20-5.40) M/uL Hgb 14.6 (12.0-16.0) g/dl Hct 41.8 (37.0-47.0) % MCV 92.3 (80.0-100.0) fL MCH 32.2 (25.0-34.0) pg MCHC 34.9 (32.0-36.0) g/dL RDW Std Deviation 47.3 H (36.4-46.3) fL RDW Coeff of Marisol 13.8 (11.5-14.5) % Plt Count 272 (130-400) K/uL MPV 9.7 (9.4-12.4) fL Immature Gran % (Auto) 0.4 % Neut % (Auto) 39.0 % Lymph % (Auto) 48.8 % Gladwin % (Auto) 9.7 % Eos % (Auto) 1.6 % Baso % (Auto) 0.5 % Neut # (Auto) 2.94 (1.40-6.50) K/uL Lymph # (Auto) 3.68 H (1.20-3.40) K/uL Gladwin # (Auto) 0.73 H (0.11-0.59) K/uL Eos # (Auto) 0.12 (0.00-0.50) K/uL Baso # (Auto) 0.04 (0.00-0.20) K/uL Immature Gran # (Auto) 0.03 (0.01-0.20) K/uL Sodium 142 (136-145) mmol/L Potassium 3.5 (3.5-5.1) mmol/L Chloride 108 H (98-107) mmol/L Carbon Dioxide 23 (21-32) mmol/L Anion Gap 11 (3-11) BUN 16 (6-23) mg/dl Creatinine 0.71 (0.6-1.2) mg/dl Est Cr Clr Drug Dosing Not Reportable eGFR 81.22 BUN/Creatinine Ratio 22.5 H (10-20) Glucose 138 H (70-99(Fasting)) mg/dl Calcium 9.2 (8.6-10.3) mg/dl Total Bilirubin 1.0 (0.2-1.0) mg/dl AST 24 (13-39) U/L ALT 15 (7-52) U/L Alkaline Phosphatase 55 (34-104) U/L Troponin I High Sens 117.8 H* (0-14) pg/ml Total Protein 6.5 (6.0-8.3) gm/dl Albumin 4.0 (3.4-5.0) gm/dl Globulin 2.5 (2.5-4.0) gm/dl Albumin/Globulin Ratio 1.6 (0.9-2) Lipase 22 (11-82) U/L Administered Medications Acetaminophen (Acetaminophen 325 Mg Tab) 650 mg PO Q4H PRN PRN Reason: Pain or Fever Stop: 06/06/24 16:12 Last Admin: 05/07/24 16:31 Dose: 650 mg Documented By: DAMASO Heparin Sodium/Dextrose (Heparin Sodium/Dextrose) 25,000 units in 500 mls @ 17 mls/hr IV .Q24H [facility]; Protocol Stop: 06/06/24 11:59 Last Admin: 05/07/24 12:41 Dose: 850 units/hr, 17 mls/hr Documented By: GPF Co-signed By: ES Amiodarone HCl/Dextrose (Nexterone / D5w) 360 mg in 200 mls @ 33.333 mls/hr IV ONE ONE Stop: 05/07/24 18:52 Last Admin: 05/07/24 12:56 Dose: 1 mg/min, 33.3 mls/hr Documented By: GPF Co-signed By: ES Ondansetron HCl (Ondansetron Inj 2 Mg/Ml 2 Ml Vial) 4 mg IV Q6H PRN PRN Reason: Nausea And Vomiting Stop: 06/06/24 10:38 Last Admin: 05/07/24 16:30 Dose: 4 mg Documented By: DAMASO Discontinued Medications Fentanyl Citrate (Fentanyl Citrate Pf 100 Mcg/2 Ml Vial) Confirm Administered Dose 100 mcg .ROUTE .STK-MED ONE Stop: 05/07/24 09:27 Last Admin: 05/07/24 10:35 Dose: 100 mcg Documented By: ELIDA Heparin Sodium (Porcine) (Heparin (Porcine) 1000 Unit/Ml 10 Ml (Bumboater Use Only)) Confirm Administered Dose 10,000 units .ROUTE .STK-MED ONE Stop: 05/07/24 09:27 Last Admin: 05/07/24 10:35 Dose: 8,500 units Documented By: ELIDA Heparin Sodium (Porcine) (Heparin Sod (Porcine) 1000 Unit/Ml) 4,000 units IV NOW ONE Stop: 05/07/24 12:01 Last Admin: 05/07/24 12:39 Dose: 4,000 units Documented By: DAMASO Co-signed By: LISETTE Heparin Sodium/Dextrose (Heparin 78749 Unit/500 Ml D5w) Confirm Administered Dose 25,000 units IV .STK-MED ONE Stop: 05/07/24 10:36 Last Admin: 05/07/24 12:39 Dose: 250,000 units Documented By: DAMASO Co-signed By: LISETTE Heparin Sodium/Sodium Chloride (Heparin In Nss Infusion 1000 Unit/500 Ml (2 U/Ml) Bag) Confirm Administered Dose 3,000 units IV .STK-MED ONE Stop: 05/07/24 09:28 Last Admin: 05/07/24 09:47 Dose: 3,000 units Documented By: ELIDA Magnesium Sulfate/Dextrose (Magnesium Sulfate / D5w) 1 gm in 100 mls @ 50 mls/hr IV ONE ONE Stop: 05/07/24 14:28 Last Infusion: 05/07/24 15:22 Dose: Infused Documented By: Admin: 05/07/24 12:55 Dose: 50 mls/hr Documented By: DAMASO Amiodarone HCl/Dextrose (Nexterone / D5w) 150 mg in 100 mls @ 600 mls/hr IV NOW STA Stop: 05/07/24 12:52 Last Infusion: 05/07/24 13:10 Dose: Infused Documented By: DAMASO Co-signed By: LISETTE Admin: 05/07/24 12:58 Dose: 600 mls/hr Documented By: DAMASO Co-signed By: LISETTE Magnesium Sulfate/Dextrose (Magnesium Sulfate / D5w) 1 gm in 100 mls @ 50 mls/hr IV ONE ONE Stop: 05/07/24 14:44 Last Infusion: 05/07/24 15:22 Dose: Infused Documented By: Admin: 05/07/24 13:00 Dose: 50 mls/hr Documented By: DAMASO Iodixanol (Iodixanol (Visipaque) 320 Mg/Ml 100ml) Confirm Administered Dose 1 ml IV .STK-MED ONE Stop: 05/07/24 09:29 Last Admin: 05/07/24 09:48 Dose: Not Given Documented By: ELIDA Midazolam HCl (Midazolam Hcl 1 Mg/Ml 2ml Vial) Confirm Administered Dose 2 mg .ROUTE .STK-MED ONE Stop: 05/07/24 09:27 Last Admin: 05/07/24 10:36 Dose: 3 mg Documented By: ELIDA Midazolam HCl (Midazolam Hcl 1 Mg/Ml 2ml Vial) Confirm Administered Dose 2 mg .ROUTE .STK-MED ONE Stop: 05/07/24 09:56 Last Admin: 05/07/24 10:36 Dose: Not Given Documented By: ELIDA Nicardipine HCl (Nicardipine Hcl Inj 2.5 Mg/Ml 10 Ml Amp) Confirm Administered Dose 25 mg .ROUTE .STK-MED ONE Stop: 05/07/24 09:27 Last Admin: 05/07/24 09:47 Dose: 25 mg Documented By: BERTHA Nitroglycerin (Nitroglycerin Sl 0.4 Mg/Tab Tab) Confirm Administered Dose 0.4 mg .ROUTE .STK-MED ONE Stop: 05/07/24 10:38 Last Admin: 05/07/24 12:41 Dose: Not Given Documented By: DAMASO Nitroglycerin/Dextrose (Nitroglycerin/D5w 100mcg/Ml 20ml Syr) Confirm Administered Dose 2,000 mcg .ROUTE .STK-MED ONE Stop: 05/07/24 09:28 Last Admin: 05/07/24 09:48 Dose: 2,000 mcg Documented By: BERTHA Ondansetron HCl (Ondansetron Inj 2 Mg/Ml 2 Ml Vial) Confirm Administered Dose 4 mg .ROUTE .STK-MED ONE Stop: 05/07/24 09:38 Last Admin: 05/07/24 10:36 Dose: Not Given Documented By: BPY Potassium Chloride (Potassium Chloride Crtab 20 Meq Tabcr) 40 meq PO NOW STA Stop: 05/07/24 12:30 Last Admin: 05/07/24 12:56 Dose: 40 meq Documented By: GPF Potassium Chloride (Potassium Chloride Crtab 20 Meq Tabcr) 40 meq PO NOW STA Stop: 05/07/24 12:45 Last Admin: 05/07/24 13:00 Dose: 40 meq Documented By: GPF Ticagrelor (Ticagrelor 90 Mg Tab) Confirm Administered Dose 180 mg .ROUTE .STK- MED ONE Stop: 05/07/24 09:32 Last Admin: 05/07/24 09:30 Dose: 180 mg Documented By: ML Imaging Data Radiologist's Impression: Chest X-Ray 05/07/24 09:27 XR chest 1V portable CLINICAL HISTORY: Chest pain, nonspecific COMPARISON STUDY: Chest radiograph December 31, 2021. FINDINGS: Lung volumes are normal. There is no pneumothorax or pleural effusion. Heart is moderately enlarged. There is mild interstitial thickening. No consolidation is identified. IMPRESSION: Cardiomegaly with mild interstitial pulmonary edema. ACT 112: Negative or not required by law. Electronically signed by: Cameron Fischer M.D. 05/07/2024 1:05 PM Discharge Plan Visit Data Chief Complaint: Heart Alert Stated Complaint: HEART ALERT ED Provider: Buster Ivory Discharge Problem: ST elevation (STEMI) myocardial infarction Patient Disposition: Admitted As Inpatient Discharge Instructions Interventions: ED Discharge Assessment Last Done: 05/07/24 09:32
[2024-05-07] MEDS: TICAGRELOR 90 MG TAB ONE (09:30)
[2024-05-07 09:46] LABS: iSTAT Creatinine 0.7 mg/dl (0.6-1.3); iSTAT Hemoglobin 14.6 g/dl (12.0-16.0); iSTAT Ionized Calcium 1.12 mmol/l (1.12-1.32); iSTAT Potassium 3.5 mmol/L (3.3-5.0)
[2024-05-07] MEDS: niCARdipine HCL INJ 2.5 MG/ML 10 ML AMP ONE (09:47)
[2024-05-07] MEDS: NITROGLYCERIN/D5W 100MCG/ML 20ML SYR ONE (09:48)
[2024-05-07] MEDS: IODIXANOL (VISIPAQUE) 320 MG/ML 100ML IV ONE (09:48)
[2024-05-07 09:54] LABS: Basophils # (auto) 0.04 K/uL (0.00-0.20); Basophils % (auto) 0.5 %; Eosinophils # (auto) 0.12 K/uL (0.00-0.50); Eosinophils % (auto) 1.6 %; Hematocrit (blood only) 41.8 % (37.0-47.0); Hemoglobin 14.6 g/dl (12.0-16.0); Immature Granulocytes # (auto) 0.03 K/uL (0.01-0.20); Immature Granulocytes % (auto) 0.4 %; Lymphocytes # (auto) 3.68 K/uL (1.20-3.40); Lymphocytes % (auto) 48.8 %; Mean Corpuscular Hemoglobin 32.2 pg (25.0-34.0); Mean Corpuscular Hgb Conc 34.9 g/dL (32.0-36.0); Mean Corpuscular Volume 92.3 fL (80.0-100.0); Mean Platelet Volume 9.7 fL (9.4-12.4); Monocytes # (auto) 0.73 K/uL (0.11-0.59); Monocytes % (auto) 9.7 %; Neutrophils # (auto) 2.94 K/uL (1.40-6.50); Platelet Count 272 K/uL (130-400); RDW Coefficient of Variation 13.8 % (11.5-14.5); RDW Standard Deviation 47.3 fL (36.4-46.3); Red Blood Count 4.53 M/uL (4.20-5.40); White Blood Count 7.54 K/ul (4.8-10.8)
[2024-05-07 10:06] LABS: Alanine Aminotransferase 15 U/L (7-52); Albumin Globulin Ratio 1.6 (0.9-2); Alkaline Phosphatase 55 U/L (34-104); Anion Gap 11 (3-11); Aspartate Aminotransferase 24 U/L (13-39); BUN Creatinine Ratio 22.5 (10-20); Blood Urea Nitrogen 16 mg/dl (6-23); Calcium 9.2 mg/dl (8.6-10.3); Carbon Dioxide 23 mmol/L (21-32); Chloride 108 mmol/L (98-107); Globulin 2.5 gm/dl (2.5-4.0); Glucose 138 mg/dl (70-99(Fasting)); Lipase 22 U/L (11-82); Potassium 3.5 mmol/L (3.5-5.1); Sodium 142 mmol/L (136-145); Total Protein 6.5 gm/dl (6.0-8.3)
[2024-05-07 10:20] LABS: Troponin I High Sensitivity 117.8 pg/ml (0-14)
[2024-05-07] MEDS: fentaNYL citrate PF 100 MCG/2 ML VIAL ONE (10:35)
[2024-05-07] MEDS: HEPARIN (PORCINE) 1000 UNIT/ML 10 ML (CATH LAB USE ONLY) ONE (10:35)
[2024-05-07] MEDS: MIDAZOLAM HCL 1 MG/ML 2ML VIAL ONE ×2 (10:36)
[2024-05-07] MEDS: ONDANSETRON INJ 2 MG/ML 2 ML VIAL ONE (10:36)
--- NOTE | 2024-05-07 10:38 | Pre Anesthesia Assessment ---
Date of Service May 07, 2024 Pre Sedation Assessment Vital Signs Temp Pulse Pulse Resp BP BP Pulse Ox 05/07/24 09:30 82 17 158/89 H 98 05/07/24 09:27 98 05/07/24 09:26 36.5 C 76 18 141/94 H 98 05/07/24 09:25 98 O2 Del Method 05/07/24 09:30 Room Air 05/07/24 09:27 Room Air 05/07/24 09:26 Room Air 05/07/24 09:25 Room Air Cardiovascular RRR, no murmur, no edema Respiratory normal respiratory effort, lungs clear to auscultation Pre-Sedation Airway Assessment Smoking Status: Never smoker mallampati 3 ASA 4 Notes The planned sedation has been discussed with the patient. Informed Consent was obtained. I have identified the patient, determined the appropriateness of sedation and have assessed the patient immediately prior to the procedure. All medicine(s) and interventions are by my order.
[2024-05-07] MEDS ORDERED: ATROPINE SULFATE 0.1 MG/ML 10ML SYR IV PRN (10:39)
[2024-05-07] MEDS ORDERED: NITROGLYCERIN SL 0.4 MG/TAB TAB SL PRN (10:39)
--- NOTE | 2024-05-07 10:45 | History & Physical Report ---
Date of Service May 07, 2024 Assessment & Plan (1) STEMI (ST elevation myocardial infarction): Plan: STEMI Onset of severe acute chest pain with exertion. Patient denies preceding anginal symptoms at rest or with exertion in the previous few weeks/months altho ugh does note some intermittent epigastric pain which she relates to GERD. History suspicious for plaque rupture Prehospital EKG with anterolateral STEMI Initial troponin 117, repeat pending. Trend to peak Taken emergently to the cardiac [facility] s/p 1 stent to the LAD with shockwave therapy. Diagonal was also noted to be blocked by stent, pain should gradually improve over time. Recommended to continue heparin GTT for another 24-48 hours Repeat EKG pending Echo pending Admitted to the ICU for further care Right radial access site with TR band in place, no hematomas appreciated. Sensation in right hand is intact to soft touch, cap refill is brisk in all fingers no signs of neurovascular compromise Last cholesterol level 2021 elevated at 204, LDL 97 at that time. Atorvastatin 40 mg daily started. Aspirin, Brilinta continued Metoprolol 25 mg twice daily continued, uptitrate as tolerated (2) Prediabetes: Plan: Last A1c 5.5% in 2022, A1c did normalize after intentional weight loss Repeat A1c pending ICU hyperglycemia protocol (3) HTN (hypertension): Plan: Hypertension Patient denies taking antihypertensives at home. Continue metoprolol at this time. Additional antihypertensives based on progression, repeat blood pressure, and echo. 107/65 post cath (4) Sleep apnea: Plan: Resolved following intentional weight loss, did not have a sleep study, no longer uses CPAP. No hypercapnia is noted on BMP Plan DVT prophylaxis: Heparinized Disposition: ICU Diet: Heart healthy CODE STATUS: DNR/DNI. Patient would not want intubation for any circumstances including respiratory protection outside of a cardiac arrest, discussed at bedside History of Present Illness Primary Care Provider: Shivani Kamara MD Sherrell is an 89-year-old female with a past medical history hypertension, GERD, bisphosphonate treatment for osteoporosis, previously normal dobutamine stress echo 2022 who presented to the ER with chest pain. Prehospital EKG with anteroseptal ST elevations and patient was activated as a heart alert and taken emergently to the [facility]. Patient was noted to be a DNR/DNI, but agreeable to cardiac catheterization for STEMI. Sherrell is seen at the bedside postcatheterization. She reports that she was walking her dog when she had sudden onset of 910/10 chest pain which is the worst chest pain she is ever had in her life. It started around an 8 out of 10 but then gradually increased and spread into her left armpit, left arm and left shoulder. She felt nauseous and sweaty. Initially denies shortness of breath but her family who is at bedside notes that she was conversationally dyspneic more than usual. She initially thought this could be related to GERD but when the pain increased she called for EMS evaluation and was found to have a STEMI. Was taken emergently to the [facility]. Immediately post cath she feels her pain was improved and now tolerable at a 7/10, and on arrival to ICU has continued to improve now a 3/10. She denies prior history of heart attack. She notes she did have a stress test a few years ago which was normal. She also had a similar feeling with panic attacks in her 30s but has not had any episodes like this in a long time. She denies a history of hypertension, hyperlipidemia, and diabetes. She does not use tobacco products/cigarettes. She does have a family history of VT in her father at age 66, and triple bypass in her mother at age 95. Sherrell reports she does not take any prescription medications, takes some vitamins and follows with [facility] medicine. Of note she is prescribed olmesartan/amlodipine for blood pressure. Medical History: Reviewed Medications: Reviewed Surgical History: Reviewed Family history: Reviewed Allergies: Reviewed Social History: Denies tobacco, alcohol, recreational drug use Code Status: DNR/DNI. She reports outside of a cardiac arrest she would not want intubation/ventilation under any circumstances even for airway protection. Allergies Allergy/AdvReac Type Severity Reaction Status Date / Time neomycin Allergy Mild redness Verified 04/23/24 16:18 Sulfa (Sulfonamide Allergy Mild GI Verified 04/23/24 16:18 Antibiotics) upset/colitis Home Medications Medication Instructions Recorded Confirmed Type cholecalciferol (vitamin D3) 50 50 mcg PO QAM 09/02/21 05/07/24 History mcg (2,000 unit) capsule multivitamin 1 tab PO QAM 09/02/21 05/07/24 History diclofenac sodium 1 % topical gel 4 g topical QID PRN Pain #100 grams 11/19/22 05/07/24 Rx (Voltaren Arthritis Pain) telmisartan 80 mg-amlodipine 5 mg 1 tab PO DAILY #30 tabs 07/21/23 05/07/24 Rx tablet lactobacillus combination no.9 4 4,000 mmu cells PO DAILY 09/30/23 05/07/24 History billion cell capsule (Adult 50 Plus Probiotic) Past Med/Surg History Problem List (Updated 05/07/24 @ 11:45 by Jeff Hill MD) STEMI (ST elevation myocardial infarction) Diverticulitis (Acute) Abdominal pain (Acute) Atypical chest pain Abnormal stress echo Aortic valve sclerosis Mild mitral regurgitation by prior echocardiogram Osteoporosis Chronic knee pain after total replacement of knee joint 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, right Right knee DJD HTN (hypertension) (Chronic) Insomnia (Chronic) Osteoarthritis (Chronic) Hyperlipidemia Medical History Osteoarthritis Prediabetes Diverticulitis Hx of hiatal hernia Hx of gastroesophageal reflux (GERD) Sleep apnea Surgical History History of open reduction and internal fixation (ORIF) procedure History of esophagogastroduodenoscopy (EGD) Hx of colonoscopy Hx of cataract extraction Hx of appendectomy S/P tubal ligation S/P tonsillectomy S/P cholecystectomy Status post total left knee replacement Family History Sister Breast cancer Other Heart disease Denies family history of Ovarian cancer Prostate cancer Lung cancer Colorectal cancer Social History Smoking Status: Former smoker Tobacco Type: Cigarettes Age Started Using Tobacco: 25; Age Quit Using Tobacco: 56; packs per day: 1; Second Hand Exposure: No; Do You Dip or Chew Tobacco: No; Hx Alcohol Use: No Hx Substance Use: No Preferred Language: Puerto Rican Communication Ability: Effective Cargo Handler Required: No Beliefs That Will Affect Care: Jewish marital status: / Current Living Situation: Family Current Living Situation Comment: lives at home with daughter current occupational status: retired current occupation: worked as a home health aid Feels Safe at Home: Yes Childhood Exposure to Second-Hand Smoke: Yes Diet: regular caffeine: Yes Dental Care, Regularly: No Seatbelt Use: always Sunscreen Use: Yes Assistive Devices: Denture - Upper and Glasses Physical Exam Physical Exam: General: A&Ox3. NAD. Cooperative. HEENT: Atraumatic, normocephalic. Vision and hearing intact Pulm: CTAB A&P. -wheezes, -rales, -rhonchi. Symmetrical chest rise. No increased work of breathing. No respiratory distress. Cardiac: RRR, -mrg. Radial pulses intact and symmetrical. Abdominal: Nontender, nondistended, soft. BS present. extremities: Right TR band in place, fingertips with intact sensation of soft touch and brisk cap refill. No signs of neurovascular compromise Results & Data Results & Data Vital Signs (Past 12 Hours) Vital Signs Temp Pulse Pulse Resp BP BP Pulse Ox 05/07/24 09:30 82 17 158/89 H 98 05/07/24 09:27 98 05/07/24 09:26 36.5 C 76 18 141/94 H 98 05/07/24 09:25 98 O2 Del Method 05/07/24 09:30 Room Air 05/07/24 09:27 Room Air 05/07/24 09:26 Room Air 05/07/24 09:25 Room Air PG Care Time/CCT Total # of Minutes Spent Total Time Spent with Patient: Total time spent is greater than 50% in coordination of care (as documented) at patient's floor/unit and/or counseling patient: Coding Level of Care Code 67277 INT INP/OBS CARE 3/75MIN Diagnoses STEMI (ST elevation myocardial infarction) I21.3 Prediabetes R73.03 HTN (hypertension) I10 Sleep apnea G47.30
--- NOTE | 2024-05-07 10:47 | Post Anesthesia Assessment ---
Date of Service May 07, 2024 Post Sedation Assessment Vital Signs Temp Pulse Pulse Resp BP BP Pulse Ox 05/07/24 09:30 82 17 158/89 H 98 05/07/24 09:27 98 05/07/24 09:26 36.5 C 76 18 141/94 H 98 05/07/24 09:25 98 O2 Del Method 05/07/24 09:30 Room Air 05/07/24 09:27 Room Air 05/07/24 09:26 Room Air 05/07/24 09:25 Room Air Recovery Score Activity: Moves 4 extremities Respiration: Deep Breath/Cough Circulation: +/-20% PreAnes Value Consciousness: Fully Awake Oxygen Saturation: > 92% On Room Air Discharge Sedation Level of Care: Fast Track Phase II Post Sedation Plan On clinical assessment, the patient appears to have tolerated the sedation without complications. Patient is recovering as anticipated. Patient will continue to be monitored by nursing and may be discharged when sedation discharge criteria are met per below protocol. Upon Completions of procedure up to 15 minutes continue every 5 minute vital signs and the P.A.R. score; then discharge to a Phase I or Fast Track to Phase II per the following guidelines: * Discharge Patient to appropriate Phase II area if PAR is 8 or greater or return to pre- procedure baseline. The post - procedure orders will be as directed. * If PAR score is less than 8 or not return to pre-procedure baseline then patient will follow Phase I monitoring till PAR is reached for Phase II. The Phase I may be done in procedure room or may call to secure a Phase I area. * If naloxone or flumazenil are used for reversal, hold in Phase I for continued monitoring from when last reversal dose was given for a minimum of 60 minutes or longer pending the nurse and/or physician discretion of patient condition before discharge to Phase II. Please call the Sedation Physician to re-evaluate and complete post-note for discharge to Phase II area. Do NOT discharge from procedure sedation or Phase 1 until post- sedation evaluation note is complete by procedure /sedation MD Sedation Discharge Instructions to be given to the patient at discharge to home. [facility] [place] Procedure Codes (Charges) Indication for Procedure Indication for procedure: STEMI Sedation/Anesthesia Procedure 1: Sedation/Anesthesia: 07884 Mod Sedation by the same physician;Init15 Min Child Age 5 & Up (initial 15 min,start 938) Procedure 2: Sedation/Anesthesia: 22150 Mod Sedation by the same physician; Ea [id number] Minutes (additional 40 min, end 1034)
[2024-05-07] MEDS ORDERED: Heparin IV Adult Wt-Based Low-Dose w/ INITIAL Bolus Protocol IV SCH (11:17)
[2024-05-07 12:08] LABS: Basophils # (auto) 0.03 K/uL (0.00-0.20); Basophils % (auto) 0.4 %; Eosinophils # (auto) 0.04 K/uL (0.00-0.50); Eosinophils % (auto) 0.6 %; Hematocrit (blood only) 41.7 % (37.0-47.0); Hemoglobin 13.9 g/dl (12.0-16.0); Immature Granulocytes # (auto) 0.03 K/uL (0.01-0.20); Immature Granulocytes % (auto) 0.4 %; Lymphocytes # (auto) 1.05 K/uL (1.20-3.40); Lymphocytes % (auto) 14.5 %; Mean Corpuscular Hemoglobin 31.7 pg (25.0-34.0); Mean Corpuscular Hgb Conc 33.3 g/dL (32.0-36.0); Mean Corpuscular Volume 95.2 fL (80.0-100.0); Monocytes # (auto) 0.45 K/uL (0.11-0.59); Monocytes % (auto) 6.2 %; Neutrophils # (auto) 5.63 K/uL (1.40-6.50); Neutrophils % (auto) 77.9 %; Platelet Count 232 K/uL (130-400); RDW Coefficient of Variation 13.9 % (11.5-14.5); RDW Standard Deviation 49.1 fL (36.4-46.3); Red Blood Count 4.38 M/uL (4.20-5.40); White Blood Count 7.23 K/ul (4.8-10.8)
[2024-05-07 12:13] LABS: Magnesium 1.9 mg/dl (1.7-2.4)
--- NOTE | 2024-05-07 12:16 | Critical Care Consultation ---
Date of Consultation May 07, 2024 Assessment & Plan (1) STEMI (ST elevation myocardial infarction): Reason Critically Ill: 89-year-old female with an ST elevation [place] who has 2 episodes of a nonsustained wide-complex rhythm. PLAN: CV: ST elevation [place] -On low-dose heparin coming out of Associate Music Professor -Aspirin atorvastatin Brilinta and metoprolol to start this evening per cardiology -Echo obtained awaiting formal read Wide-complex arrhythmia -Suspect aberrancy given resolution with vagal maneuver and coughing Fluids/Renal: Optimize potassium and magnesium GI/Nutrition: Heart healthy diet Hyperlipidemia -Atorvastatin DVT prophylaxis: Heparin infusion Endocrine: ICU hyperglycemia protocol Vascular access: Peripheral IV Code Status: DO NOT RESUSCITATE in event of cardiac arrest Disposition: ICU (2) Atypical chest pain: (3) Abnormal stress echo: (4) HTN (hypertension): (5) Hyperlipidemia: History of Present Illness Reason for Consultation: ST elevation [place] Requesting Physician: Tres Attending Physician: Jake Recinos MD History of Present Illness Patient is an 89-year-old female with past medical history of hypertension osteoporosis, GERD, previous normal dobutamine stress who presented to the ED with several hours of precordial chest pain. In the emergency department she was diagnosed with an ST elevation OH and sent to the cardiac Associate Music Professor. In the Associate Music Professor she underwent a stent to the LAD. She was transferred to the ICU for further evaluation and management. She was on a heparin infusion. Patient underwent echocardiogram during this she had several episodes of nonsustained ventricular tachycardia versus atrial arrhythmia with aberrancy, she was able to Valsalva and this discontinue the wide-complex arrhythmia. Allergies Allergy/AdvReac Type Severity Reaction Status Date / Time neomycin Allergy Mild redness Verified 04/23/24 16:18 Sulfa (Sulfonamide Allergy Mild GI Verified 04/23/24 16:18 Antibiotics) upset/colitis Home Medications Medication Instructions Recorded Confirmed Type cholecalciferol (vitamin D3) 50 50 mcg PO QAM 09/02/21 05/07/24 History mcg (2,000 unit) capsule multivitamin 1 tab PO QAM 09/02/21 05/07/24 History diclofenac sodium 1 % topical gel 4 g topical QID PRN Pain #100 grams 11/19/22 05/07/24 Rx (Voltaren Arthritis Pain) telmisartan 80 mg-amlodipine 5 mg 1 tab PO DAILY #30 tabs 01/25/24 11/11/24 Rx tablet lactobacillus combination no.9 4 4,000 mmu cells PO DAILY 09/30/23 05/07/24 History billion cell capsule (Adult 50 Plus Probiotic) Patient History Medical History Osteoarthritis Prediabetes Hgb A1C 5.7 on 09/02/21 Diverticulitis September 2021 No current issues Hx of hiatal hernia Hx of gastroesophageal reflux (GERD) Well controlled and stable Sleep apnea Hx; "lost weight, no longer need my machine" Did not get additional sleep study Surgical History History of open reduction and internal fixation (ORIF) procedure rt ankle History of esophagogastroduodenoscopy (EGD) Hx of colonoscopy Hx of cataract extraction rt/lt Hx of appendectomy S/P tubal ligation S/P tonsillectomy S/P cholecystectomy Status post total left knee replacement Family History Sister Breast cancer Other Heart disease Denies family history of Ovarian cancer Prostate cancer Lung cancer Colorectal cancer Social History Smoking Status: Former smoker Tobacco Type: Cigarettes Age Started Using Tobacco: 25; Age Quit Using Tobacco: 56; packs per day: 1; Second Hand Exposure: No; Do You Dip or Chew Tobacco: No; Hx Alcohol Use: No Hx Substance Use: No Preferred Language: [place] Communication Ability: Effective Dba Manager Required: No Beliefs That Will Affect Care: Christianity marital status: / Current Living Situation: Family Current Living Situation Comment: lives at home with daughter current occupational status: retired current occupation: worked as a home health aid Other Information That Helps Us Care for You: No Feels Safe at Home: Yes Safety Concerns: Feels Safe At This Time Childhood Exposure to Second-Hand Smoke: Yes Diet: regular caffeine: Yes Dental Care, Regularly: No Seatbelt Use: always Sunscreen Use: Yes Assistive Devices: Denture - Upper and Glasses Physical Exam Physical Exam: General: Alert. nontoxic. Skin: Warm, dry, Head: Atraumatic Ears, nose, mouth and throat: airway patent Cardiovascular: Normal peripheral perfusion Respiratory: no respiratory distress Gastrointestinal: Non distended Musculoskeletal: No deformity Results & Data Results & Data Vital Signs (Past 12 Hours) Vital Signs Temp Pulse Pulse Resp BP BP Pulse Ox 05/07/24 11:24 66 20 107/65 97 05/07/24 11:09 37.0 C 66 20 118/68 95 05/07/24 10:54 36.8 C 67 20 111/66 93 05/07/24 09:30 82 17 158/89 H 98 05/07/24 09:27 98 05/07/24 09:26 36.5 C 76 18 141/94 H 98 05/07/24 09:25 98 O2 Del Method O2 Flow Rate 05/07/24 11:24 Nasal Cannula 05/07/24 11:09 Nasal Cannula 6 05/07/24 10:54 Nasal Cannula 6 05/07/24 09:30 Room Air 05/07/24 09:27 Room Air 05/07/24 09:26 Room Air 05/07/24 09:25 Room Air Critical Care Results & Data Vital Signs (Past 12 Hours) Vital Signs Temp Pulse Pulse Resp BP BP Pulse Ox 05/07/24 12:15 70 20 121/66 92 05/07/24 12:00 69 19 94 05/07/24 11:57 68 25 H 119/68 93 05/07/24 11:39 68 19 94 05/07/24 11:24 66 20 107/65 97 05/07/24 11:09 37.0 C 66 20 118/68 95 05/07/24 10:54 36.8 C 67 20 111/66 93 05/07/24 09:30 82 17 158/89 H 98 05/07/24 09:27 98 05/07/24 09:26 36.5 C 76 18 141/94 H 98 05/07/24 09:25 98 O2 Del Method O2 Flow Rate 05/07/24 12:15 05/07/24 12:00 05/07/24 11:57 05/07/24 11:39 05/07/24 11:24 Nasal Cannula 05/07/24 11:09 Nasal Cannula 6 05/07/24 10:54 Nasal Cannula 6 05/07/24 09:30 Room Air 05/07/24 09:27 Room Air 05/07/24 09:26 Room Air 05/07/24 09:25 Room Air Lab & Micro Results (Past 24 Hours) RBC 4.38 M/uL (4.20-5.40) 05/07/24 WBC 7.23 K/ul (4.8-10.8) 05/07/24 Hgb 13.9 g/dl (12.0-16.0) 05/07/24 Hct 41.7 % (37.0-47.0) 05/07/24 MCV 95.2 fL (80.0-100.0) 05/07/24 MCH 31.7 pg (25.0-34.0) 05/07/24 MCHC 33.3 g/dL (32.0-36.0) 05/07/24 RDW Standard Deviation 49.1 fL (36.4-46.3) H 05/07/24 RDW Coefficient of Variation 13.9 % (11.5-14.5) 05/07/24 Plt Count 232 K/uL (130-400) 05/07/24 MPV 10.0 fL (9.4-12.4) 05/07/24 Neutrophils (%) (Auto) 77.9 % 05/07/24 Lymphocytes (%) (Auto) 14.5 % 05/07/24 Monocytes # (Auto) 0.45 K/uL (0.11-0.59) 05/07/24 Eosinophils # (Auto) 0.04 K/uL (0.00-0.50) 05/07/24 Immature Granulocyte % (Auto) 0.4 % 05/07/24 Neutrophils # (Auto) 5.63 K/uL (1.40-6.50) 05/07/24 Lymphocytes # (Auto) 1.05 K/uL (1.20-3.40) L 05/07/24 Monocytes # (Auto) 0.45 K/uL (0.11-0.59) 05/07/24 Eosinophils # (Auto) 0.04 K/uL (0.00-0.50) 05/07/24 Basophils # (Auto) 0.03 K/uL (0.00-0.20) 05/07/24 Immature Granulocyte # (Auto) 0.03 K/uL (0.01-0.20) 4 Na 142 mmol/L (136-145) 05/07/24 K 3.5 mmol/L (3.5-5.1) 05/07/24 Cl 108 mmol/L (98-107) H 05/07/24 CO2 23 mmol/L (21-32) 05/07/24 Anion Gap 11 (3-11) 05/07/24 BUN 16 mg/dl (6-23) 05/07/24 Creatinine 0.71 mg/dl (0.6-1.2) 05/07/24 BUN/Creatinine Ratio 22.5 (10-20) H 05/07/24 Glu 138 mg/dl (70-99(Fasting)) H 05/07/24 Ca 9.2 mg/dl (8.6-10.3) 05/07/24 Total Bilirubin 1.0 mg/dl (0.2-1.0) 05/07/24 AST 24 U/L (13-39) 05/07/24 ALT 15 U/L (7-52) 05/07/24 Alkaline Phosphatase 55 U/L (34-104) 05/07/24 TP 6.5 gm/dl (6.0-8.3) 05/07/24 Albumin 4.0 gm/dl (3.4-5.0) 05/07/24 Globulin 2.5 gm/dl (2.5-4.0) 05/07/24 Albumin/Globulin Ratio 1.6 (0.9-2) 05/07/24 Mg 1.9 mg/dl (1.7-2.4) 05/07/24 11:34 Calcium Level 9.2 mg/dl (8.6-10.3) 05/07/24 09:30 RT Ventilator Mngmt (Last Documented) Ventilator Ordered Settings Respiratory Rate 20 05/07/24 12:15 Ventilator - PT Measurements Respiratory Rate 20 Coding Level of Care Code 99894 CRITICAL CARE 1ST 30-74M Diagnoses STEMI (ST elevation myocardial infarction) I21.3 Atypical chest pain R07.89 Abnormal stress echo R94.39 HTN (hypertension) I10 Hyperlipidemia E78.5
[2024-05-07 12:19] LABS: Chol HDL Ratio 3.7 (0-5)
[2024-05-07] MEDS: HEPARIN SOD (PORCINE) 1000 UNIT/ML IV ONE (12:39)
[2024-05-07] MEDS: HEPARIN 25000 UNIT/500 ML D5W IV ONE (12:39)
[2024-05-07] MEDS: HEPARIN SODIUM/DEXTROSE 25,000 UNITS/500 ML BAG IV SCH (12:41)
[2024-05-07] MEDS: NITROGLYCERIN SL 0.4 MG/TAB TAB ONE (12:41)
[2024-05-07] MEDS ORDERED: STAT IV Infusion **Titration per Protocol STA (12:43)
[2024-05-07] MEDS ORDERED: 0.2 MICRON FILTER SET 1 EACH IV STA (12:43)
[2024-05-07] MEDS ORDERED: AMIODARONE IV BOLUS & DRIP IV STA (12:43)
[2024-05-07 12:52] LABS: Troponin I High Sensitivity 1838.4 pg/ml (0-14)
[2024-05-07] MEDS: MAGNESIUM SULFATE / D5W 1 GM/100 ML BAG IV ONE ×2 (12:55→13:00)
[2024-05-07] MEDS: POTASSIUM CHLORIDE CRTAB 20 MEQ TABCR PO STA ×2 (12:56→13:00)
[2024-05-07] MEDS: AMIODARONE / D5W 360 MG/200 ML BAG IV ONE (12:56)
[2024-05-07] MEDS: AMIODARONE / D5W 150 MG/100 ML BAG IV STA (12:58)
--- NOTE | 2024-05-07 13:06 | XRay Report ---
XR chest 1V portable CLINICAL HISTORY: Chest pain, nonspecific COMPARISON STUDY: Chest radiograph December 31, 2021. FINDINGS: Lung volumes are normal. There is no pneumothorax or pleural effusion. Heart is moderately enlarged. There is mild interstitial thickening. No consolidation is identified. IMPRESSION: Cardiomegaly with mild interstitial pulmonary edema. ACT 112: Negative or not required by law. Electronically signed by: Cameron Fischer M.D. 05/07/2024 1:05 PM
[2024-05-07 13:48] LABS: Estimated Average Glucose 117 mg/dl; Hemoglobin A1C 5.7 % (4.5-5.6)
[2024-05-07] MEDS ORDERED: MoRPHine SULFATE 2 MG/ML CARP IV PRN (16:10)
[2024-05-07] MEDS: ONDANSETRON INJ 2 MG/ML 2 ML VIAL IV PRN (16:30)
[2024-05-07] MEDS: ACETAMINOPHEN 325 MG TAB PO PRN (16:31)
[2024-05-07 17:23] LABS: Partial Thromboplastin Ratio > 4.9; Prothrombin Time 11.2 Seconds (9.0-12.0)
[2024-05-07 17:35] LABS: Partial Thromboplastin Time > 139 Seconds (21-31)
[2024-05-07 17:36] LABS: ANTI-Xa, UFH(UnfractionatedHep > 1.50 IU/ml (0.3-0.7)
[2024-05-07] MEDS: AMIODARONE / D5W 360 MG/200 ML BAG IV SCH (18:31)
[2024-05-07 21:17] LABS: ANTI-Xa, UFH(UnfractionatedHep 0.68 IU/ml (0.3-0.7)
[2024-05-07] MEDS: MELATONIN 3 MG TAB PO PRN (21:50)
[2024-05-07] MEDS: METOPROLOL TARTRATE 25 MG TAB PO SCH (21:50)
[2024-05-07] MEDS: TICAGRELOR 90 MG TAB PO SCH (21:50)
[2024-05-08] MEDS: METOCLOPRAMIDE HCL INJ 5 MG/ML 2 ML VIAL IV ONE (05:21)
--- NOTE | 2024-05-08 07:45 | Critical Care Progress Note ---
Date of Service May 08, 2024 Assessment & Plan (1) STEMI (ST elevation myocardial infarction): Plan: Reason Critically Ill: 89-year-old female with an ST elevation [place] who has 2 episodes of a nonsustained wide-complex rhythm. PLAN: CV: ST elevation [place] -On low-dose heparin coming out of Employee Benefits Manager -Aspirin atorvastatin Brilinta and metoprolol to start this evening per cardiology -Echo obtained awaiting formal read -Troponins now downtrending -Awaiting echocardiogram results Wide-complex arrhythmia -Suspect aberrancy given resolution with vagal maneuver and coughing -On amiodarone per cardiology -Cardiac no obvious wide-complex rhythms outside of occasional PVCs since approximately 6 PM yesterday Fluids/Renal: Optimize potassium and magnesium GI/Nutrition: Heart healthy diet Hyperlipidemia -Atorvastatin DVT prophylaxis: Heparin infusion Endocrine: ICU hyperglycemia protocol Vascular access: Peripheral IV Code Status: DO NOT RESUSCITATE in event of cardiac arrest Disposition: Stable for downgrade out of ICU, critical care will sign off (2) Atypical chest pain: (3) Abnormal stress echo: (4) HTN (hypertension): (5) Hyperlipidemia: Admission and Anticipated Discharge Date Admission Date: May 07, 2024 Subjective Patient complaining of anxiety mild midsternal chest discomfort however this is significantly improved compared yesterday. She reports she has had panic attacks before and is anxious about having a heart attack. Physical Exam Physical Exam: General: Alert. nontoxic. Skin: Warm, dry, Head: Atraumatic Ears, nose, mouth and throat: airway patent Cardiovascular: Normal peripheral perfusion Respiratory: no respiratory distress Gastrointestinal: Non distended Musculoskeletal: No deformity Results & Data Results & Data Vital Signs (Past 12 Hours) Vital Signs Temp Pulse Pulse Resp BP BP Pulse Ox 05/08/24 07:00 36.7 C 65 22 122/81 94 05/08/24 06:00 68 17 122/74 92 05/08/24 05:03 69 17 114/76 89 L 05/08/24 04:12 64 27 H 111/57 L 88 L 05/08/24 03:03 71 25 H 113/65 92 05/08/24 02:12 59 L 23 111/64 93 05/08/24 01:03 68 21 107/66 94 05/08/24 00:06 65 22 106/71 93 05/08/24 00:00 36.7 C 05/08/24 00:00 63 05/07/24 23:06 66 24 105/59 L 90 05/07/24 22:03 70 26 H 108/63 91 05/07/24 21:06 68 25 H 107/64 93 05/07/24 20:18 68 22 116/63 92 05/07/24 20:00 36.9 C O2 Del Method 05/08/24 07:00 Room Air 05/08/24 06:00 Room Air 05/08/24 05:03 05/08/24 04:12 05/08/24 03:03 05/08/24 02:12 05/08/24 01:03 05/08/24 00:06 05/08/24 00:00 05/08/24 00:00 05/07/24 23:06 05/07/24 22:03 05/07/24 21:06 05/07/24 20:18 05/07/24 20:00 Critical Care Results & Data Vital Signs (Past 12 Hours) Vital Signs Temp Pulse Pulse Resp BP BP Pulse Ox 05/08/24 07:00 36.7 C 65 22 122/81 94 05/08/24 06:00 68 17 122/74 92 05/08/24 05:03 69 17 114/76 89 L 05/08/24 04:12 64 27 H 111/57 L 88 L 05/08/24 03:03 71 25 H 113/65 92 05/08/24 02:12 59 L 23 111/64 93 05/08/24 01:03 68 21 107/66 94 05/08/24 00:06 65 22 106/71 93 05/08/24 00:00 36.7 C 05/08/24 00:00 63 05/07/24 23:06 66 24 105/59 L 90 05/07/24 22:03 70 26 H 108/63 91 05/07/24 21:06 68 25 H 107/64 93 05/07/24 20:18 68 22 116/63 92 05/07/24 20:00 36.9 C O2 Del Method 05/08/24 07:00 Room Air 05/08/24 06:00 Room Air 05/08/24 05:03 05/08/24 04:12 05/08/24 03:03 05/08/24 02:12 05/08/24 01:03 05/08/24 00:06 05/08/24 00:00 05/08/24 00:00 05/07/24 23:06 05/07/24 22:03 05/07/24 21:06 05/07/24 20:18 05/07/24 20:00 Lab & Micro Results (Past 24 Hours) RBC 4.38 M/uL (4.20-5.40) 05/07/24 WBC 7.23 K/ul (4.8-10.8) 05/07/24 Hgb 13.9 g/dl (12.0-16.0) 05/07/24 Hct 41.7 % (37.0-47.0) 05/07/24 MCV 95.2 fL (80.0-100.0) 05/07/24 MCH 31.7 pg (25.0-34.0) 05/07/24 MCHC 33.3 g/dL (32.0-36.0) 05/07/24 RDW Standard Deviation 49.1 fL (36.4-46.3) H 05/07/24 RDW Coefficient of Variation 13.9 % (11.5-14.5) 05/07/24 Plt Count 232 K/uL (130-400) 05/07/24 MPV 10.0 fL (9.4-12.4) 05/07/24 Neutrophils (%) (Auto) 77.9 % 05/07/24 Lymphocytes (%) (Auto) 14.5 % 05/07/24 Monocytes # (Auto) 0.45 K/uL (0.11-0.59) 05/07/24 Eosinophils # (Auto) 0.04 K/uL (0.00-0.50) 05/07/24 Immature Granulocyte % (Auto) 0.4 % 05/07/24 Neutrophils # (Auto) 5.63 K/uL (1.40-6.50) 05/07/24 Lymphocytes # (Auto) 1.05 K/uL (1.20-3.40) L 05/07/24 Monocytes # (Auto) 0.45 K/uL (0.11-0.59) 05/07/24 Eosinophils # (Auto) 0.04 K/uL (0.00-0.50) 05/07/24 Basophils # (Auto) 0.03 K/uL (0.00-0.20) 05/07/24 Immature Granulocyte # (Auto) 0.03 K/uL (0.01-0.20) 4 Na 142 mmol/L (136-145) 05/07/24 K 3.5 mmol/L (3.5-5.1) 05/07/24 Cl 108 mmol/L (98-107) H 05/07/24 CO2 23 mmol/L (21-32) 05/07/24 Anion Gap 11 (3-11) 05/07/24 BUN 16 mg/dl (6-23) 05/07/24 Creatinine 0.71 mg/dl (0.6-1.2) 05/07/24 BUN/Creatinine Ratio 22.5 (10-20) H 05/07/24 Glu 138 mg/dl (70-99(Fasting)) H 05/07/24 Ca 9.2 mg/dl (8.6-10.3) 05/07/24 Total Bilirubin 1.0 mg/dl (0.2-1.0) 05/07/24 AST 24 U/L (13-39) 05/07/24 ALT 15 U/L (7-52) 05/07/24 Alkaline Phosphatase 55 U/L (34-104) 05/07/24 TP 6.5 gm/dl (6.0-8.3) 05/07/24 Albumin 4.0 gm/dl (3.4-5.0) 05/07/24 Globulin 2.5 gm/dl (2.5-4.0) 05/07/24 Albumin/Globulin Ratio 1.6 (0.9-2) 05/07/24 Mg 1.9 mg/dl (1.7-2.4) 05/07/24 11:34 Calcium Level 9.2 mg/dl (8.6-10.3) 05/07/24 09:30 Prothromb Time International Ratio 1.0 (0.9-1.1) 05/07/24 16:3 4 Diagnostic Findings (Past 24 Hours) Chest X-Ray 05/07/24 09:27 XR chest 1V portable CLINICAL HISTORY: Chest pain, nonspecific COMPARISON STUDY: Chest radiograph December 31, 2021. FINDINGS: Lung volumes are normal. There is no pneumothorax or pleural effusion. Heart is moderately enlarged. There is mild interstitial thickening. No consolidation is identified. IMPRESSION: Cardiomegaly with mild interstitial pulmonary edema. ACT 112: Negative or not required by law. Electronically signed by: Cameron Fischer M.D. 05/07/2024 1:05 PM I & O Totals 24 Hours 05/07/24 05/08/24 05/09/24 06:59 06:59 06:59 Intake Total 958.302 / 958.302 Output Total 401 / 401 Balance 557.302 / 557.302 Cumulative 05/07/24 09:14 thru 05/08/24 06:50 Intake Total 958.302 Output Total 401 Balance 557.302 RT Ventilator Mngmt (Last Documented) Ventilator Ordered Settings Respiratory Rate 22 05/08/24 07:00 Ventilator - PT Measurements Respiratory Rate 22 Coding Level of Care Code 05465 SUB INP/OBS CARE 125MIN Diagnoses STEMI (ST elevation myocardial infarction) I21.3 Atypical chest pain R07.89 Abnormal stress echo R94.39 HTN (hypertension) I10 Hyperlipidemia E78.5
[2024-05-08] MEDS: ASPIRIN 81 MG ECTAB PO SCH (07:49)
[2024-05-08] MEDS: ATORVASTATIN 40 MG TAB PO SCH (07:50)
--- NOTE | 2024-05-08 09:06 | XCELERA ---
[id number] \\[id number]
[2024-05-08 12:16] LABS: Basophils # (auto) 0.01 K/uL (0.00-0.20); Basophils % (auto) 0.1 %; Hemoglobin 13.5 g/dl (12.0-16.0); Immature Granulocytes # (auto) 0.02 K/uL (0.01-0.20); Immature Granulocytes % (auto) 0.3 %; Lymphocytes # (auto) 0.66 K/uL (1.20-3.40); Lymphocytes % (auto) 8.8 %; Mean Corpuscular Hgb Conc 33.8 g/dL (32.0-36.0); Mean Corpuscular Volume 94.8 fL (80.0-100.0); Mean Platelet Volume 10.1 fL (9.4-12.4); Monocytes # (auto) 0.56 K/uL (0.11-0.59); Monocytes % (auto) 7.5 %; Neutrophils # (auto) 6.24 K/uL (1.40-6.50); Neutrophils % (auto) 83.3 %; Platelet Count 245 K/uL (130-400); RDW Coefficient of Variation 14.2 % (11.5-14.5); RDW Standard Deviation 49.5 fL (36.4-46.3); Red Blood Count 4.22 M/uL (4.20-5.40); White Blood Count 7.49 K/ul (4.8-10.8)
[2024-05-08 12:42] LABS: ANTI-Xa, UFH(UnfractionatedHep 0.22 IU/ml (0.3-0.7)
--- NOTE | 2024-05-08 15:16 | Hospitalist Progress Note ---
Date of Service May 08, 2024 Assessment & Plan (1) STEMI (ST elevation myocardial infarction): Plan: 89-year-old admitted with STEMI, taken emergently to [facility] [employer] and underwent PCI to LAD with 1 stent placed, diagonal was also noted to be blocked by stent - she had episode wide-complex arrhythmiaNSVT versus aberrancy that resolved with vagal maneuver, continue amiodarone drip - continue heparin drip for up to another 24 hours - continue aspirin Brilinta statin metoprolol - TTE reviewedextensive severe LAD territory wall motion abnormality, borderline dilated LV, EF 35-40% severe LAE, moderate MR, moderate TR, trace AI - consulted cardiology other notable data: Hemoglobin A1c 5.7, LDL 176, troponin peaked at 15,000 (2) Prediabetes: Plan: Last A1c 5.5% in 2022, now 5.7l (3) HTN (hypertension): Plan: Hypertension Patient denies taking antihypertensives at home. Continue metoprolol at this time. (4) Sleep apnea: Plan: Resolved following intentional weight loss, did not have a sleep study, no longer uses CPAP. No hypercapnia is noted on BMP Plan DVT prophylaxis: Heparinized Disposition: PCU Diet: Heart healthy CODE STATUS: DNR/DNI. Patient would not want intubation for any circumstances including respiratory protection outside of a cardiac arrest, discussed at bedside Admission and Anticipated Discharge Date Admission Date: May 07, 2024 Subjective continues to have nausea and dyspnea but not actually chest pain worried about depression getting worse, recently low mood, in distant past had taken zoloft had trouble sleeping and thinks she should start medication for depression Physical Exam Physical Exam: PHYSICAL EXAMINATION Last 24h vital signs reviewed, see documentation in flowsheet General: comfortable appearing, no distress HEENT: Normocephalic, atraumatic, pupils round and equal, sclerae anicteric, no conjunctival injection, moist mucus membranes Lungs: Normal respiratory effort. Clear to auscultation bilaterally. No RRW Heart: Regular rate and rhythm, no murmurs. No JVD Abdomen: Soft, nontender, nondistended. Bowel sounds present. Extremities: Warm, dry, well-perfused. No extremity edema. Neuro: Alert and oriented x 4, face symmetric, moves 4 extremities well Psych: mildly anxious affect and depressed mood, normal behavior Results & Data Results & Data Vital Signs (Past 12 Hours) Vital Signs Temp Pulse Pulse Resp BP BP Pulse Ox 05/08/24 10:57 36.8 C 65 20 117/70 94 05/08/24 08:06 65 23 126/79 94 05/08/24 08:00 05/08/24 08:00 05/08/24 08:00 69 05/08/24 08:00 05/08/24 07:03 67 24 94 05/08/24 07:00 36.7 C 65 22 122/81 94 05/08/24 06:27 67 22 93 05/08/24 06:00 68 17 122/74 92 05/08/24 05:03 69 17 114/76 89 L 05/08/24 04:12 64 27 H 111/57 L 88 L Pulse Ox O2 Del Method O2 Del Method 05/08/24 10:57 Room Air 05/08/24 08:06 05/08/24 08:00 94 Room Air 05/08/24 08:00 Room Air 05/08/24 08:00 05/08/24 08:00 Room Air 05/08/24 07:03 05/08/24 07:00 Room Air 05/08/24 06:27 05/08/24 06:00 Room Air 05/08/24 05:03 05/08/24 04:12 PG Care Time/CCT Total # of Minutes Spent Total Time Spent with Patient: Total time spent is greater than 50% in coordination of care (as documented) at patient's floor/unit and/or counseling patient: Coding Level of Care Code 88473 SUB INP/OBS CARE 3/50MIN Diagnoses STEMI (ST elevation myocardial infarction) I21.3 Prediabetes R73.03 HTN (hypertension) I10 Sleep apnea G47.30
[2024-05-08 20:10] LABS: ANTI-Xa, UFH(UnfractionatedHep 0.22 IU/ml (0.3-0.7)
[2024-05-08] MEDS: traZODone HCL 50 MG TAB PO SCH (21:07)
[2024-05-09 03:16] LABS: BUN Creatinine Ratio 21.6 (10-20); Calcium 9.2 mg/dl (8.6-10.3); Creatinine Clr Calc Pharmacy 49.1 ml/min; Potassium 3.9 mmol/L (3.5-5.1)
[2024-05-09 03:36] LABS: ANTI-Xa, UFH(UnfractionatedHep 0.26 IU/ml (0.3-0.7)
[2024-05-09 10:29] LABS: Basophils # (auto) 0.03 K/uL (0.00-0.20); Basophils % (auto) 0.3 %; Eosinophils # (auto) 0.02 K/uL (0.00-0.50); Eosinophils % (auto) 0.2 %; Hematocrit (blood only) 41.2 % (37.0-47.0); Hemoglobin 13.5 g/dl (12.0-16.0); Immature Granulocytes # (auto) 0.04 K/uL (0.01-0.20); Immature Granulocytes % (auto) 0.4 %; Lymphocytes % (auto) 16.9 %; Mean Corpuscular Hemoglobin 31.3 pg (25.0-34.0); Mean Corpuscular Hgb Conc 32.8 g/dL (32.0-36.0); Mean Corpuscular Volume 95.6 fL (80.0-100.0); Monocytes # (auto) 1.02 K/uL (0.11-0.59); Monocytes % (auto) 11.5 %; Neutrophils # (auto) 6.28 K/uL (1.40-6.50); Neutrophils % (auto) 70.7 %; Platelet Count 240 K/uL (130-400); RDW Coefficient of Variation 14.3 % (11.5-14.5); RDW Standard Deviation 50.3 fL (36.4-46.3); Red Blood Count 4.31 M/uL (4.20-5.40); White Blood Count 8.89 K/ul (4.8-10.8)
[2024-05-09 10:49] LABS: ANTI-Xa, UFH(UnfractionatedHep 0.31 IU/ml (0.3-0.7)
--- NOTE | 2024-05-09 10:56 | Electrocardiogram Report ---
Test Reason : Blood Pressure : */* mmHG Vent. Rate : 73 BPM Atrial Rate : 73 BPM P-R Int : 154 ms QRS Dur : 70 ms QT Int : 402 ms P-R-T Axes : 52 -37 41 degrees QTcB Int : 442 ms Sinus rhythm with Premature atrial complexes Left axis deviation Low voltage QRS ST elevation consider anterolateral injury or acute infarct ACUTE WI / STEMI Abnormal ECG When compared with ECG of 21-Apr-2023 08:54, (unconfirmed) Premature atrial complexes are now Present ST elevation now present in Anterolateral leads Confirmed by Tomas Delgado ([id number]) on 05/09/2024 10:56:09 AM Referred By: REFERRED SELF Confirmed By: Tomas Delgado
--- NOTE | 2024-05-09 10:59 | Electrocardiogram Report ---
Test Reason : Blood Pressure : */* mmHG Vent. Rate : 68 BPM Atrial Rate : 68 BPM P-R Int : 184 ms QRS Dur : 80 ms QT Int : 444 ms P-R-T Axes : 73 -25 62 degrees QTcB Int : 472 ms Poor data quality, interpretation may be adversely affected Sinus rhythm with Premature supraventricular complexes Low voltage QRS Anteroseptal infarct , acute Abnormal ECG When compared with ECG of 07-May-2024 09:27, (unconfirmed) No significant change Confirmed by Tomas Delgado ([id number]) on 05/09/2024 10:59:11 AM Referred By: REFERRED SELF Confirmed By: Tomas Delgado
--- NOTE | 2024-05-09 11:09 | Electrocardiogram Report ---
Test Reason : Blood Pressure : */* mmHG Vent. Rate : 65 BPM Atrial Rate : 65 BPM P-R Int : 196 ms QRS Dur : 90 ms QT Int : 460 ms P-R-T Axes : 93 -45 72 degrees QTcB Int : 478 ms Normal sinus rhythm Left anterior fascicular block Anteroseptal infarct (cited on or before 07-May-2024) Abnormal ECG When compared with ECG of 07-May-2024 10:50, (unconfirmed) Serial changes of evolving Anterior infarct Confirmed by Tomas Delgado ([id number] on 05/09/2024 11:09:10 AM Referred By: REFERRED SELF Confirmed By: Tomas Delgado
--- NOTE | 2024-05-09 14:50 | Cardiology Progress Note ---
Date of Service May 09, 2024 Assessment & Plan (1) ST elevation (STEMI) myocardial infarction: Plan: Status post PCI of the LAD with a drug-eluting stent. Jailed diagonal branch which was severely diseased to begin with. Seems to be doing relatively well at this time. Improved but persistent ventricular ectopy likely representing irritability of the myocardium post GA. She will remain on dual antiplatelet therapy with aspirin 81 mg daily and Brilinta 90 mg p.o. twice daily. Because of her ventricular ectopy I think it would be best for her to begin amiodarone 200 mg p.o. twice daily to complete at least 1 months therapy. We will need to check her thyroid function and liver function in 1 to 2 weeks after beginning this medication. My intent is to allow her myocardium to recover and hopefully her ventricular ectopy will also resolve and we could therefore discontinue the amiodarone at 1 month. Her heart rate and blood pressure are at target or slightly low. I would like to convert her to metoprolol succinate in the morning. 25 mg daily. For now we will hold the telmisartan/amlodipine combination which she uses as an outpatient. I will likely add the telmisartan or alternative ARB back to her regimen without the amlodipine as an outpatient.. She will also remain on high intensity statin therapy. (2) Mild mitral regurgitation by prior echocardiogram: Plan: No volume overload. We will be obtaining a limited follow-up echo after 3 months therapy since she has moderate LV dysfunction. (3) HTN (hypertension): Plan: Blood pressures currently low normal. Continue metoprolol. Changing to metoprolol succinate ER 25 mg daily and because we are changing to oral amiodarone I suspect her blood pressure will jump up. At that point we can consider the reintroduction of angiotensin receptor gaby. (4) Hyperlipidemia: Plan: High risk. High intensity statin therapy ongoing. Plan Patient will likely be appropriate for discharge tomorrow assuming that she has no significant issues overnight. I would like to see her in the office in follow-up within the next 3 weeks. I am going to encourage her to participate in cardiac rehab although there may be some limitations because of her advanced age. Admission and Anticipated Discharge Date Admission Date: May 07, 2024 Subjective Patient denies any of this chest pain she had on presentation. She says she has a little bit of acid reflux. No shortness of breath. Review of the monitor dem onstrates improved rhythm although she still has some brief ventricular ectopy. She will be returning to live with her daughter. She tells me that she needs her prescriptions sent to the [facility] pharmacy in [place]. We discussed her amiodarone regimen. Review of Systems Review of Systems: Negative except as per HPI Physical Exam Constitutional: WD/WN, vitals as above Eyes: Extraocular muscles intact. Sclera are anicteric. ENMT: Oral mucosa is pink moist and intact. Neck: No JVD or bruits Respiratory: Clear to auscultation bilaterally. No wheezing, rhonchi, or rales. Cardiovascular: Regular rate and rhythm. S4 gallop. Soft systolic murmur. No rubs. No edema. Musculoskeletal: no cyanosis or clubbing, extremities motor strength 5/5 (Access site with mild ecchymosis. Clean dry and intact. Good distal perfu) Neurologic: Cognition is intact. Speech is fluent. No focal deficits. Psychiatric: A+Ox3, euthymic affect Results & Data Vital Signs (Past 12 Hours) Vital Signs Temp Pulse Pulse Resp BP Pulse Ox Pulse Ox 05/09/24 14:31 61 05/09/24 11:36 36.5 C 65 18 103/63 96 05/09/24 08:00 56 L 05/09/24 08:00 94 05/09/24 08:00 05/09/24 07:52 36.8 C 68 14 113/79 94 05/09/24 03:22 36.4 C L 63 21 98/63 L 90 O2 Del Method O2 Del Method 05/09/24 14:31 05/09/24 11:36 Room Air 05/09/24 08:00 05/09/24 08:00 Room Air 05/09/24 08:00 Room Air 05/09/24 07:52 Room Air 05/09/24 03:22 Room Air PG Care Time/CCT Total # of Minutes Spent Total Time Spent with Patient: Total time spent is greater than 50% in coordination of care (as documented) at patient's floor/unit and/or counseling patient: Coding Level of Care Code 49262 SUB INP/OBS CARE 3/50MIN Diagnoses ST elevation (STEMI) myocardial infarction I21.3 Mild mitral regurgitation by prior echocardiogram I34.0 HTN (hypertension) I10 Hyperlipidemia E78.5
--- NOTE | 2024-05-09 16:24 | Hospitalist Progress Note ---
Date of Service May 09, 2024 Assessment & Plan (1) STEMI (ST elevation myocardial infarction): Plan: 89-year-old admitted with STEMI, taken emergently to [facility] and underwent PCI to LAD with 1 stent placed, diagonal was also noted to be blocked by stent - she had episode wide-complex arrhythmiaNSVT versus aberrancy that resolved with vagal maneuver, treated with amiodarone drip - changing today to po 200 mg bid for about a month for ectopy - change metoprolol to XL in AM - continue aspirin Brilinta statin - ARB likely to be reviewed as outpatient - TTE reviewedextensive severe LAD territory wall motion abnormality, borderline dilated LV, EF 35-40% severe LAE, moderate MR, moderate TR, trace AI - discussed with Dr. Joshua - likely home tomorrow if doing well, cardiac rehab other notable data: Hemoglobin A1c 5.7, LDL 176, troponin peaked at 15,000 (2) Prediabetes: Plan: Last A1c 5.5% in 2022, now 5.7 (3) HTN (hypertension): Plan: Hypertension meds as above. Currently normotensive (4) Sleep apnea: Plan: Resolved following intentional weight loss, did not have a sleep study, no longer uses CPAP. No hypercapnia is noted on BMP Plan reported a black formed stool today. Stopped heparin. Monitor stools. AM CBC DVT prophylaxis: SCDs, brilinta, ASA. Heparin drip stopped midday Disposition: PCU Diet: Heart healthy CODE STATUS: DNR/DNI. Patient would not want intubation for any circumstances including respiratory protection outside of a cardiac arrest, discussed at bedside I updated her daughter at bedside 05/09 Admission and Anticipated Discharge Date Admission Date: May 07, 2024 Subjective doing well, nausea resolved and no dyspnea, feels like she is at her baseline activity tolerance had some fleeting left upper chest pain this am, none currently and nothing like the CP which brought her in Physical Exam 2 Physical Exam: PHYSICAL EXAMINATION Last 24h vital signs reviewed, see documentation in flowsheet General: comfortable appearing, no distress exam unchanged 05/09: HEENT: Normocephalic, atraumatic, pupils round and equal, sclerae anicteric, no conjunctival injection, moist mucus membranes Lungs: Normal respiratory effort. Clear to auscultation bilaterally. No RRW Heart: Regular rate and rhythm, no murmurs. No JVD Abdomen: Soft, nontender, nondistended. Bowel sounds present. Extremities: Warm, dry, well-perfused. No extremity edema. Neuro: Alert and oriented x 4, face symmetric, moves 4 extremities well Psych: mildly anxious affect and depressed mood, normal behavior Results & Data Results & Data Vital Signs (Past 12 Hours) Vital Signs Temp Pulse Pulse Resp BP Pulse Ox Pulse Ox 05/09/24 15:54 36.9 C 61 18 103/57 L 95 05/09/24 14:31 61 05/09/24 11:36 36.5 C 65 18 103/63 96 05/09/24 08:00 56 L 05/09/24 08:00 94 05/09/24 08:00 05/09/24 07:52 36.8 C 68 14 113/79 94 O2 Del Method O2 Del Method 05/09/24 15:54 Room Air 05/09/24 14:31 05/09/24 11:36 Room Air 05/09/24 08:00 05/09/24 08:00 Room Air 05/09/24 08:00 Room Air 05/09/24 07:52 Room Air Laboratory Results 05/09/24 10:11 05/09/24 02:45 PG Care Time/CCT Total # of Minutes Spent Total Time Spent with Patient: Total time spent is greater than 50% in coordination of care (as documented) at patient's floor/unit and/or counseling patient: Coding Level of Care Code 11432 SUB INP/OBS CARE 3/50MIN Diagnoses STEMI (ST elevation myocardial infarction) I21.3 Prediabetes R73.03 HTN (hypertension) I10 Sleep apnea G47.30
[2024-05-09] MEDS: AMIODARONE 200 MG TAB PO SCH (17:01)
[2024-05-10 06:39] LABS: Hematocrit (blood only) 36.6 % (37.0-47.0); Hemoglobin 12.5 g/dl (12.0-16.0); Mean Corpuscular Hemoglobin 32.1 pg (25.0-34.0); Mean Corpuscular Hgb Conc 34.2 g/dL (32.0-36.0); Mean Corpuscular Volume 94.1 fL (80.0-100.0); Mean Platelet Volume 10.6 fL (9.4-12.4); Platelet Count 194 K/uL (130-400); RDW Coefficient of Variation 14.2 % (11.5-14.5); RDW Standard Deviation 48.5 fL (36.4-46.3); Red Blood Count 3.89 M/uL (4.20-5.40); White Blood Count 6.95 K/ul (4.8-10.8)
[2024-05-10 06:52] LABS: BUN Creatinine Ratio 19.5 (10-20); Calcium 9.1 mg/dl (8.6-10.3); Creatinine Clr Calc Pharmacy 54.9 ml/min; Potassium 3.6 mmol/L (3.5-5.1)
[2024-05-10 07:28] VITALS: BP 112/73; PULSE 61; RESP 16; TEMP 98.4; O2SAT 93
[2024-05-10] MEDS: METOPROLOL SUCC 25MG EXT REL TAB PO SCH (07:41)
--- NOTE | 2024-05-10 15:43 | Cardiac Catheterization ---
[facility] Data: Control Panel Operator Cardiac Status Clinical evaluation leading to the procedure CAD Presenation: STEMI Diagnostic Physicians Name: George Joshua MD, PhD Closure Device Recommendations: Medical Therapy and/or Counseling and PCI without planned CABG Cardiac Cath Procedure Full Procedure Date May 07, 2024 Pre-Procedure Diagnosis Pre-Procedure Diagnosis: STEMI AUC Score AUC Score: 09 Post-Procedure Diagnosis Post-Procedure Diagnosis: Severe CAD and Successful PCI Procedure(s) Performed Procedure(s) Performed: Coronary Angiography, Drug Eluting Stent and Procedure (Intracoronary lithotripsy) Academic Success Coordinator George Joshua MD, PhD Estimated Blood Loss Estimated Blood Loss: 10 cc Medication(s) Medication(s): Fentanyl, Heparin, Lidocaine 1%, Nicardipine, Nitroglycerin and Versed Summary of Findings Brief description: Patient was brought to the cardiac catheterization suite where she was shaved and prepped in a sterile fashion. Sedated using IV Versed and fentanyl. Soft tissues of the right wrist were anesthetized using 2 mL of 1% Xylocaine. The right radial artery was accessed with a modified Seldinger technique and a 6 Greek radial artery glide sheath was placed. Patient arrived on heparin and additional heparin was provided throughout the case as needed to maintain therapeutic ACT. Patient was also provided antispasmodics including nicardipine and nitroglycerin. All catheters were advanced and exchanged over a 0.035 J-tip wire and a Wholey wire initially. Left coronary angiography was initiated with a 6 Greek EBU 3.0 guide catheter. We proceeded immediately to PCI. A BMW universal guidewire was advanced down the LAD and then directed across the ostium of the first diagonal where it was positioned distally. A Scion coronary guidewire was then inserted and this was directed down the LAD where it was positioned distally. Proximal LAD lesion was then predilated using a 2.0 x 12 mm trek balloon at 14, 8, and 14 zeus respectively. This balloon was removed. A 2.5 x 12 mm shockwave lithotripsy balloon was then advanced and positioned across the lesion. This was inflated twice to 4 zeus and a lithotripsy run was performed twice. The balloon was then deflated and removed. The BMW universal guidewire in the diagonal was then pulled back into the guide catheter. A 2.5 x 18 mm ernesto point drug-eluting stent was advanced over the Scion wire and positioned across the LAD lesion. Here it was deployed at 16 zeus. The balloon was deflated and angiography was performed. The already severely diseased ostial diagonal was now with worsened flow. Therefore, we attempted to cross the stent struts several times into the diagonal using both the Scion and BMW wires. We were able to cross the lesion and attempted to place a 2.0 x 6 mm sprinter balloon across the stent struts but this could not be delivered. The flow in the diagonal seemed to improve and we decided to abandon further attempts at this time. The guidewire was removed along with the balloon and final angiography of the left coronary system was performed. We then completed the diagnostic coronary angiography using a 5 Greek JR4 diagnostic catheter for the RCA. Images were obtained in orthogonal views. This catheter was then removed over the J-wire. Note, the left heart cath was performed using the EBU guide catheter and pressures were measured in the left ventricle. Radial artery sheath was removed. Hemostasis was obtained using the TR band. Patient was hemodynamically stable without significant symptoms. She was then admitted to the ICU for further workup and management. This ended the case. Coronary angiography findings: [id number] vessel trifurcating into LAD, circumflex, and ramus. Mild luminal irregularities. [id number] and transapical. It has at least moderate to severe calcification in the proximal and early mid segment. There is a 99% stenosis in the proximal LAD at the level and involving the D1 ostium. D1 has 99% stenosis and a small clot is noted. The D1 is relatively large and branching. The mid LAD has luminal irregularities in the distal LAD does not appear to have significant disease. There is ALAINA I flow in the LAD and the D1 after the proximal stenosis. This is the culprit for acute ST elevation CA. LCx-this is large caliber and nondominant. Travels in the AV groove becoming a large branching OM1. It then provides a small atrial branch. No angiographically significant disease in the circumflex or its branches. Ramus intermedius-this is large caliber and branches near the apex. There is no more than mild luminal irregularities in the ramus. RCA-this is very large caliber and dominant. Some tortuosity and bifurcates distally into PDA and PLB. There is no more than mild scattered plaques of less than 20% stenosis. PCI of LAD-0% residual stenosis post PCI Large branching diagonal with residual 99% stenosis and jailing. ALAINA-3 flow in the LAD and diagonal post PCI No evidence of dissection or perforation post PCI Summary: 1. Severe coronary disease involving the proximal LAD and ostium of the large diagonal. Culprit for acute CA. 2. Successful PCI of the LAD with implantation of a drug-eluting stent. Sabianist of ALAINA-3 flow in the LAD and diagonal despite significant residual stenosis at the ostium of the diagonal. 3. Dual antiplatelet therapy with aspirin and Brilinta for 1 to 2 years. 4. Guideline directed medical therapy for secondary prevention of coronary disease. Low-dose aspirin, beta-gaby, high intensity statin therapy plus or minus MAY inhibitor/ARB as tolerated. 5. Patient is admitted to the ICU for at least 24 hours. Will obtain an echocardiogram and additional recommendations pending results of the echo. Hemodynamics Rest Ao:: 126/66 mmHg Final Ao: 124/78 mmHg LV: 144/2 mmHg, LVEDP 23 mmHg Recommendations Recommendations: Medical Therapy and/or Counseling and PCI without planned CABG Radiation Exposure (mGy) 2827 mGy, fluoroscopy time 20.1 minutes Contrast (mls) 167 cc Anesthesia 3 mg Versed, 100 mcg fentanyl IV. Start time 0939, end time 1034 Procedural Complication(s) None Disposition ICU I attest to the content of the Intraoperative Record and any orders documented therein. Any exceptions are noted below. [facility] Card [facility] Procedure Codes Cardiac Catheterization Procedure 1: Cardiovascular Cath Procedures: 34401 Coronaries and LHC (+/-LV) Therapeutic Services & Ancillary Procedure 1: Cardiovascular Tx and Anc Procedures: 39259 IV Ultrasound (Coronary or Graft) (Intracoronary lithotripsy) Moderate Sedation Procedure 1: Sedation/Anesthesia: 70820 Mod Sedation by the same physician;Init15 Min Child Age 5 & Up (Initial 15 minutes, start time 0939) Procedure 2: Sedation/Anesthesia: 34432 Mod Sedation by the same physician; Ea Add [id number] Minutes (Additional 40 minutes, end time 1034) Stenting Procedure 1: Cardiovascular Stent Procedures: 24156 Perc transluminal revascularization of acute sub/total occl, aMI PG Care Time/CCT Total # of Minutes Spent Total Time Spent with Patient: Total time spent is greater than 50% in coordination of care (as documented) at patient's floor/unit and/or counseling patient:
--- NOTE | 2024-05-10 17:21 | Discharge Summary ---
Discharge Summary Date of Service May 10, 2024 Principal Dx & Hospital Course #1 = Principal Diagnosis (1) STEMI (ST elevation myocardial infarction): 89-year-old admitted with STEMI, taken emergently to [facility] and underwent PCI to LAD with 1 stent placed, diagonal was also noted to be blocked by stent Following this she had no further chest pain and no symptoms of heart failure. - she had episode wide-complex arrhythmiaNSVT versus aberrancy that resolved with vagal maneuver, treated with amiodarone drip - changed to po 200 mg bid for about a month for ectopy - started metroprolol succinate, started atorvastatin - DAPT with aspirin and Brilinta - discussed not to run out or self-discontinue which can lead to a severe heart attack - ARB likely to be restarted as outpatient if BP tolerates - TTE reviewedextensive severe LAD territory wall motion abnormality, borderline dilated LV, EF 35-40% severe LAE, moderate MR, moderate TR, trace AI - cardiac rehab - follow up with Dr. Joshua other notable data: Hemoglobin A1c 5.7, LDL 176, troponin peaked at 15,000 (2) Prediabetes: Last A1c 5.5% in 2022, now 5.7 - cardiac rehab for increased activity level, dietary changes (3) HTN (hypertension): Hypertension meds as above. Currently normotensive (4) Sleep apnea: Resolved following intentional weight loss, did not have a sleep study, no luis jeana uses CPAP. No hypercapnia is noted on BMP Plan reported a black formed stool AM 05/09, stopped heparin drip, Hg remained stable, had brown stool this AM. Discussed to seek medical attention if she has melena, BRBPR while on DAPT depression and anxiety - discussed with her, has been having depressed mood recently. started escitalopram at lowest dose of 5 mg because of drug interaction with amiodarone. QTC not prolonged on EKG. - evaluate for dose increase after off of amiodarone, follow up with PCP I updated her daughter at bedside 05/09, 05/10 Notes For Next Care Provider started escitalopram at lowest dose of 5 mg because of drug interaction with amiodarone. QTC not prolonged on EKG. - evaluate for dose increase after off of amiodarone Medication Changes From Visit Stopped: telmesartan/amlodipine New: ASA, Brilinta, metoprolol, atorvastatin, amiodarone, escitalopram Admission HPI Per Admitting Provider Sherrell is an 89-year-old female with a past medical history hypertension, GERD, bisphosphonate treatment for osteoporosis, previously normal dobutamine stress echo 2022 who presented to the ER with chest pain. Prehospital EKG with anteros eptal ST elevations and patient was activated as a heart alert and taken emergently to the [facility]. Patient was noted to be a DNR/DNI, but agreeable to cardiac catheterization for STEMI. Sherrell is seen at the bedside postcatheterization. She reports that she was walking her dog when she had sudden onset of 910/10 chest pain which is the worst chest pain she is ever had in her life. It started around an 8 out of 10 but then gradually increased and spread into her left armpit, left arm and left shoulder. She felt nauseous and sweaty. Initially denies shortness of breath but her family who is at bedside notes that she was conversationally dyspneic more than usual. She initially thought this could be related to GERD but when the pain increased she called for EMS evaluation and was found to have a STEMI. Was taken emergently to the [facility]. Immediately post cath she feels her pain was improved and now tolerable at a 7/10, and on arrival to ICU has continued to improve now a 3/10. She denies prior history of heart attack. She notes she did have a stress test a few years ago which was normal. She also had a similar feeling with panic attacks in her 30s but has not had any episodes like this in a long time. She denies a history of hypertension, hyperlipidemia, and diabetes. She does not use tobacco products/cigarettes. She does have a family history of IA in her father at age 66, and triple bypass in her mother at age 95. Sherrell reports she does not take any prescription medications, takes some vitamins and follows with [facility] family [facility]. Of note she is prescribed olmesartan/amlodipine for blood pressure. Medical History: Reviewed Medications: Reviewed Surgical History: Reviewed Family history: Reviewed Allergies: Reviewed Social History: Denies tobacco, alcohol, recreational drug use Code Status: DNR/DNI. She reports outside of a cardiac arrest she would not want intubation/ventilation under any circumstances even for airway protection. Discharge Exam PHYSICAL EXAMINATION Last 24h vital signs reviewed, see documentation in flowsheet General: comfortable appearing, no distress exam unchanged 05/10: HEENT: Normocephalic, atraumatic, pupils round and equal, sclerae anicteric, no conjunctival injection, moist mucus membranes Lungs: Normal respiratory effort. Clear to auscultation bilaterally. No RRW Heart: Regular rate and rhythm, no murmurs. No JVD Abdomen: Soft, nontender, nondistended. Bowel sounds present. Extremities: Warm, dry, well-perfused. No extremity edema. Neuro: Alert and oriented x 4, face symmetric, moves 4 extremities well Psych: normal affect, mood more optimistic today, normal behavior Discharge Plan Discharge Items Patient Disposition: Home - Self-Care Reason For Visit: STEMI Discharge Diagnosis: STEMI ischemic cardiomyopathy NSVT Activity: Per Instructions section Non-emergency contact: Primary Care Provider and Compensation And Benefits Manager Call non-emergency contact if: you have any medication questions and your symptoms worsen Follow-up/Referrals: George Joshua MD, PhD [Physician] - 05/15/24 4:00 pm (Hospital follow up on May 15 at 4 pm) Shivani Kamara MD [Primary Care Provider] - 05/16/24 1:30 pm (Hospital follow up on May 16 at 1:30) Diet: Heart Healthy Addtl Attending Provider Instructions: You were treated for heart attack. Dr. Josuha placed a stent in a blocked artery in your heart Make sure you take your medications as directed to help your heart heal You are being treated with both baby aspirin and Brilinta for your cardiac stent. It is extremely important not to run out of these medications or stop them prematurely without the advice of your c wpf developer. Stopping too early can cause your stent to clot up, which can result in a severe heart attack. Metoprolol is a medication that will help your heart beat slower and help the heart muscle heal. It also controls blood pressure -stop the telmisartan/amlodipine for now, its replaced by the metoprolol -Dr. Joshua may resume the telmisartan in the future if your BP is high enough You have had some abnormal heart beats related to the heart attack. The c wpf developer recommends medication called amiodarone to control this. He's hoping it can be discontinued in about a month. I started escitalopram (lexapro) to help with depression and anxiety. There is a drug interaction with amiodarone so we should stay with a very low dose for now. Follow up with your primary care within about 2 weeks You will be fine with your usual level of activities, but don't start a new exercise program until cleared by your c wpf developer. He may make a referral to cardiac rehab to help you increase your activity level safely It was a pleasure taking care of you in the hospital, Ayanna Treviño MD ACTIVITY RECOMMENDATIONS: It is common to feel weak and fatigue for a few days. * Do not drive or operate any motorized equipment for the next three days. * Limit stair usage (2 or 3 trips a day only) for the next three days. * Do not lift anything heavier than 10 pounds for the next three days. * Do not engage in vigorous exercise or any sports for the next five days. * You may shower the day after your procedure, but do not immerse the area for three days. Cleanse the site gently with soap and water. SPECIAL CARE INSTRUCTIONS: * You may replace the pressure dressing or band-aid the morning after the procedure. * After your procedure, it is normal to have a small bruise or small lump at the site. Examine your site daily for any change in the bruise or lump, redness, swelling, drainage or numbness. Notify your doctor if any change. BLEEDING: * If there is a small amount of bleeding at the site, lie down and apply firm pressure with a clean cloth for ten minutes. When the bleeding stops, lie quietly keeping the procedure limb straight for six hours. Notify your doctor as soon as possible. * If the bleeding does not stop after ten minutes or if there is a large amount of bleeding or spurting, call 911 immediately. Continue to lie down and hold firm pressure until help arrives. SKIN IRRITATION: * You may experience some redness and/or swelling in the area where radiation was administered. If any skin irritation occurs, please contact your family physician. FOLLOW UP VISIT: Keep any scheduled doctor appointments. Pending Studies at Discharge: No Stand-Alone Forms: My [facility] [employer], Smoking Cessation Medications and DC Order Prescriptions: New Brilinta 90 mg Tablet 90 mg PO BID Qty: 60 1RF escitalopram oxalate 5 mg tablet 5 mg PO DAILY Qty: 30 0RF amiodarone 200 mg Tablet 200 mg PO BIDM Qty: 60 0RF atorvastatin 40 mg Tablet 40 mg PO QAM Qty: 30 0RF metoprolol succinate 25 mg Tablet Extended Release 24 Hr 25 mg PO QAM Qty: 30 0RF nitroglycerin [Nitrostat] 0.4 mg Tablet, Sublingual 0.4 mg sublingual Q5M PRN (Reason: chest pain) Qty: 20 0RF aspirin 81 mg Tablet,Delayed Release (Dr/Ec) 81 mg PO QAM Qty: 0 0RF Rx Instructions: buy 81 mg aspirin over the counter Continued diclofenac sodium [Voltaren Arthritis Pain] 1 % gel 4 g topical QID PRN (Reason: Pain) Qty: 100 0RF Rx Instructions: unable to verify. no fill history/otc. apply to single knee, ankle up to 4 x day as needed multivitamin Tablet 1 tab PO QAM Rx Instructions: otc unable to verify cholecalciferol (vitamin D3) 50 mcg (2,000 unit) capsule 50 mcg PO QAM Rx Instructions: w/ food otc unable to verify Adult 50 Plus Probiotic 4 billion cell capsule 4,000 mmu cells PO DAILY Rx Instructions: otc. unable to verify administer with a meal Discontinued telmisartan-amlodipine 80-5 mg tablet 1 tab PO DAILY Qty: 30 2RF Rx Instructions: last filled 07/22/23 30 day supply. Discharge Orders: Discharge Order (Routine); Ordered 05/10/24 Ordered By: Ayanna Senior/Other Patient Handouts: Heart Attack Dc Admission Data Admit Date/Time: 05/07/24 09:33 Attending Provider: Ayanna Treviño Admit Provider: Jake Recinos Primary Care Provider: Shivani Kamara Other Providers: Jeff Hill; Nithin Zepeda; Darius Smith; Joseph Villa; Bogdan Brown; George Joshua; Tomas Delgado; Rosas Rene Jr; Amado Vaz; Kiley Garcia; Kavya Dougherty; Sumeet Sawnat; Sumeet Harvey; Augustine Moreno; Nicki Mercedes; Ian Askew; Lisa Qureshi; Shaan Malagon; Ian Berry; Jeramie Parada; Fede Kenny Other Interventions: Discharge Summary Assessment (RN) Last Done: 05/10/24 09:24 Hospital Stay Data Consultations 05/07/24 09:43 ED Decision to Admit Stat 05/07/24 18:57 Consult Informatics Coordinator Routine 05/08/24 09:01 Consult Cardiology Routine Procedures Performed Operation Date: 05/07/24 09:30 Actual Procedures p Cineradiography w/Routine Exam - George Joshua MD, PhD p Aspiration/PCI w/DANNIE for Stemi - George Joshua MD, PhD s Perc Brown Coronary Lithotripsy - George Joshua MD, PhD Diagnostic Imagining Performed 05/07/24 09:26 CL Cath Imgs for PACS use only Stat Pending Results Patient Have Any Pending Studies at Discharge: No Discharge Instructions Given to Patient (Per Discharging Provider) You were treated for heart attack. Dr. Joshua placed a stent in a blocked artery in your heart Make sure you take your medications as directed to help your heart heal You are being treated with both baby aspirin and Brilinta for your cardiac stent. It is extremely important not to run out of these medications or stop them prematurely without the advice of your c wpf developer. Stopping too early can cause your stent to clot up, which can result in a severe heart attack. Metoprolol is a medication that will help your heart beat slower and help the heart muscle heal. It also controls blood pressure -stop the telmisartan/amlodipine for now, its replaced by the metoprolol -Dr. Joshua may resume the telmisartan in the future if your BP is high enough You have had some abnormal heart beats related to the heart attack. The c wpf developer recommends medication called amiodarone to control this. He's hoping it can be discontinued in about a month. I started escitalopram (lexapro) to help with depression and anxiety. There is a drug interaction with amiodarone so we should stay with a very low dose for now. Follow up with your primary care within about 2 weeks You will be fine with your usual level of activities, but don't start a new exercise program until cleared by your c wpf developer. He may make a referral to cardiac rehab to help you increase your activity level safely It was a pleasure taking care of you in the hospital, Ayanna Treviño MD ACTIVITY RECOMMENDATIONS: It is common to feel weak and fatigue for a few days. * Do not drive or operate any motorized equipment for the next three days. * Limit stair usage (2 or 3 trips a day only) for the next three days. * Do not lift anything heavier than 10 pounds for the next three days. * Do not engage in vigorous exercise or any sports for the next five days. * You may shower the day after your procedure, but do not immerse the area for three days. Cleanse the site gently with soap and water. SPECIAL CARE INSTRUCTIONS: * You may replace the pressure dressing or band-aid the morning after the procedure. * After your procedure, it is normal to have a small bruise or small lump at the site. Examine your site daily for any change in the bruise or lump, redness, swelling, drainage or numbness. Notify your doctor if any change. BLEEDING: * If there is a small amount of bleeding at the site, lie down and apply firm pressure with a clean cloth for ten minutes. When the bleeding stops, lie quietly keeping the procedure limb straight for six hours. Notify your doctor as soon as possible. * If the bleeding does not stop after ten minutes or if there is a large amount of bleeding or spurting, call 911 immediately. Continue to lie down and hold firm pressure until help arrives. SKIN IRRITATION: * You may experience some redness and/or swelling in the area where radiation was administered. If any skin irritation occurs, please contact your family physician. FOLLOW UP VISIT: Keep any scheduled doctor appointments. Total Time Total Time Spent Total Time Spent (In Minutes): I personally spent: 35 minutes today on clinical care activities including: reviewing chart notes and vital signs reviewing labs examining and counseling the patient counseling the patient's family writing orders writing prescriptions, discharge instructions documentation Coding Level of Care Code 94773 INP/OBS DISCH >30 MIN Diagnoses STEMI (ST elevation myocardial infarction) I21.3 Prediabetes R73.03 HTN (hypertension) I10 Sleep apnea G47.30
== END 2024-05-10 11:13 | disposition home or self-care (01) | DRG 324 ==
LOC: ED 09:21 → CC 09:32 → 1E 09:33 → SUATTDRO 09:33 → CC 09:50 → 2S 05-08 13:47 → 2E 05-08 18:25

== ENCOUNTER 2024-08-24 22:43 | Inpatient (IN) ==
[2024-08-24 23:37] LABS: BUN Creatinine Ratio 30.8 (10-20); Creatinine Clr Calc Pharmacy 47.9 ml/min; Magnesium 2.1 mg/dl (1.7-2.4); Potassium 3.6 mmol/L (3.5-5.1)
[2024-08-24 23:44] LABS: Troponin I High Sensitivity 10.2 pg/ml (0-14)
[2024-08-24 23:49] LABS: Partial Thromboplastin Ratio 0.8; Partial Thromboplastin Time 21 Seconds (21-31); Prothrombin Time 10.7 Seconds (9.0-12.0)
[2024-08-24 23:55] LABS: Albumin Level 3.7 gm/dl (3.4-5.0); Bilirubin Direct 0.1 mg/dl (0-0.2); Bilirubin,Total 0.9 mg/dl (0.2-1.0); Total Protein 5.5 gm/dl (6.0-8.3)
[2024-08-24] MEDS ORDERED: SODIUM CHLORIDE 0.9% 100 ML IV PRN (23:55)
[2024-08-24] MEDS ORDERED: SODIUM CHLORIDE 0.9% 50 ML IV PRN (23:55)
[2024-08-25] LABS: Hematocrit (blood only) 16.3 % (37.0-47.0); Hemoglobin 4.6 g/dl (12.0-16.0); Mean Corpuscular Hemoglobin 22.2 pg (25.0-34.0); Mean Corpuscular Hgb Conc 28.2 g/dL (32.0-36.0); Mean Corpuscular Volume 78.7 fL (80.0-100.0); Mean Platelet Volume 10.2 fL (9.4-12.4); Platelet Count 300 K/uL (130-400); RDW Coefficient of Variation 18.6 % (11.5-14.5); RDW Standard Deviation 53.8 fL (36.4-46.3); Red Blood Count 2.07 M/uL (4.20-5.40); White Blood Count 5.89 K/ul (4.8-10.8)
--- NOTE | 2024-08-25 00:18 | Emergency Department Note ---
History of Present Illness General Chief Complaint: Chest Pain Stated Complaint: Chest Pain Time Seen by Provider: 08/24/24 23:01 History of Present Illness Provider Complaint: chest pain Onset (ago): day(s) 1 Duration: intermittent Pain Location: substernal Severity: moderate Maximum Pain Intensity: 6 Current Pain Intensity: 0 Quality: + dull Relieved By: + nitroglycerin Exacerbated By: + nothing Context: + other (Patient reports dark stools and hemmohrhoidal bleeding); no recent illness, no recent surgery, no recent immobilization, no recent travel, no trauma/injury, no new medications or no history of DVT/PE Associated symptoms: + dyspnea and + other (No abdominal pain); no nausea, no vomiting, no diaphoresis, no syncope, no palpitations, no fever or no cough Home Medications Medication Instructions Recorded Confirmed Type cholecalciferol (vitamin D3) 50 50 mcg PO QAM 09/02/21 08/25/24 History mcg (2,000 unit) capsule multivitamin 1 tab PO QAM 09/02/21 08/25/24 History diclofenac sodium 1 % topical gel 4 g topical QID PRN Pain #100 grams 11/19/22 08/25/24 Rx (Voltaren Arthritis Pain) lactobacillus combination no.9 4 4,000 mmu cells PO DAILY 09/30/23 08/25/24 History billion cell capsule (Adult 50 Plus Probiotic) amiodarone 200 mg tablet 200 mg PO BIDM #60 tabs 05/10/24 08/25/24 Rx aspirin 81 mg tablet,delayed 81 mg PO QAM #0 tabs 05/10/24 08/25/24 Rx release atorvastatin 40 mg tablet 40 mg PO QAM #90 tabs 06/10/24 08/25/24 Rx metoprolol succinate 25 mg 25 mg PO QAM #90 tabs 06/10/24 08/25/24 Rx tablet,extended release 24 hr ticagrelor 90 mg tablet (Brilinta) 90 mg PO BID #180 tabs 07/10/24 08/25/24 Rx furosemide 20 mg tablet 20 mg PO Q OTHER DAY #45 tabs 08/06/24 08/25/24 Rx nitroglycerin 0.4 mg sublingual 0.4 mg sublingual Q5M PRN chest 08/21/24 08/25/24 Rx tablet (Nitrostat) pain #20 tabs Allergies Allergy/AdvReac Type Severity Reaction Status Date / Time neomycin Allergy Mild redness Verified 07/11/24 12:52 Sulfa (Sulfonamide Allergy Mild GI Verified 07/11/24 12:52 Antibiotics) upset/colitis Past Med/Surg History Problem List (Updated 08/25/24 @ 00:32 by Kiko Grover MD) Chest pain (Acute) GI bleed (Acute) Ischemic cardiomyopathy Dyspnea PVCs (premature ventricular contractions) ST elevation (STEMI) myocardial infarction (Acute) Aortic valve sclerosis Mild mitral regurgitation by prior echocardiogram Osteoporosis Chronic knee pain after total replacement of knee joint 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, right Right knee DJD HTN (hypertension) (Chronic) Insomnia (Chronic) Osteoarthritis (Chronic) Hyperlipidemia Medical History History of placement of stent in LAD coronary artery Osteoarthritis Prediabetes Hgb A1C 5.7 on 09/02/21 Diverticulitis September 2021 No current issues Hx of hiatal hernia Hx of gastroesophageal reflux (GERD) Well controlled and stable Sleep apnea Hx; "lost weight, no longer need my machine" Did not get additional sleep study Surgical History History of open reduction and internal fixation (ORIF) procedure rt ankle History of esophagogastroduodenoscopy (EGD) Hx of colonoscopy Hx of cataract extraction rt/lt Hx of appendectomy S/P tubal ligation S/P tonsillectomy S/P cholecystectomy Status post total left knee replacement Family History Sister Breast cancer Other Heart disease Denies family history of Ovarian cancer Prostate cancer Lung cancer Colorectal cancer Social History Smoking Status: Former smoker Tobacco Type: Cigarettes Age Started Using Tobacco: 25; Age Quit Using Tobacco: 56; packs per day: 1; Second Hand Exposure: No; Do You Dip or Chew Tobacco: No; Hx Alcohol Use: No Hx Substance Use: No Preferred Language: Malay Communication Ability: Effective Study Lead Required: No Beliefs That Will Affect Care: Restorationism marital status: / Current Living Situation: Family Current Living Situation Comment: lives at home with daughter current occupational status: retired current occupation: Retired Feels Safe at Home: Yes Childhood Exposure to Second-Hand Smoke: Yes Diet: regular caffeine: Yes Dental Care, Regularly: No Seatbelt Use: always Sunscreen Use: Yes Assistive Devices: None Physical Exam Vital Signs Vital Signs - 24 hr 08/24/24 22:35 08/24/24 23:02 08/24/24 23:02 Temperature 36.6 C Temperature Source Temporal Artery Scan Pulse Rate 72 Pulse Rate [Apical] 80 Respiratory Rate 18 18 Respiratory Effort / Characteristics Non-Labored Spontaneous Non-Labored Spontaneous Respiratory Depth Normal Normal Respiratory Pattern Regular Regular Blood Pressure 135/62 Blood Pressure [Right Arm] 153/76 H Blood Pressure Mean 86 Blood Pressure Mean [Right Arm] 101 Blood Pressure Position [Right Arm] Sitting Pulse Oximetry 97 96 97 Oxygen Delivery Method Room Air Room Air Room Air Sepsis Recent Fever Within 48 Hours No Sepsis New/Unexplained Change in Mental Status N/A Sepsis Action Taken by Nursing No Action Required 08/24/24 23:02 08/24/24 23:03 Temperature Temperature Source Pulse Rate 73 Pulse Rate [Apical] Respiratory Rate Respiratory Effort / Characteristics Respiratory Depth Respiratory Pattern Blood Pressure Blood Pressure [Right Arm] Blood Pressure Mean Blood Pressure Mean [Right Arm] Blood Pressure Position [Right Arm] Pulse Oximetry 97 Oxygen Delivery Method Room Air Sepsis Recent Fever Within 48 Hours Sepsis New/Unexplained Change in Mental Status Sepsis Action Taken by Nursing Physical Exam GENERAL: oriented to person, place, and time. appears well-developed and well- nourished. HENT: Exam performed. - Head: Normocephalic and atraumatic. EYES: Conjunctivae and EOM are normal. Right eye exhibits no discharge. Left eye exhibits no discharge. No scleral icterus. NECK: Normal range of motion. Neck supple. No JVD present. CV: Normal rate, regular rhythm, normal heart sounds and intact distal pulses. There is no peripheral edema. Palpable radial pulses bue. PULM/CHEST: Effort normal and breath sounds normal. No respiratory distress. No stridor. no wheezes. no rales. ABD: The abdomen is soft. There is no tenderness. Rectal: Hemorrhoids that are soft and flesh-colored. Not actively bleeding. Hemoccult negative. NEURO: Motor and sensation grossly intact. SKIN: Pale PSYCH: normal mood and affect. Behavior is normal. Judgment and thought content normal. Course Course 2300: The patient was evaluated in room C2. A complete history and physical exam was performed Cardiac monitoring: An order was placed for continuous cardiac monitoring. The monitor shows a rate of 80 with sinus rhythm interpreted by 0027: Vital signs stable. Patient's hemoglobin is 4.6. Troponin negative. Patient is DNR/DNI with limited interventions. I did discuss blood transfusion with the patient and the daughter at bedside. They are both okay with getting blood transfusion. Although Hemoccult was negative given the patient reported history of melanotic stools and hematochezia the patient will be started on Protonix bolus and drip. Administered Medications Pantoprazole Sodium 40 mg/ (Dextrose) 100 mls @ 20 mls/hr IV Q5H YAMIL Stop: 09/24/24 00:29 Last Admin: 08/25/24 00:41 Dose: 8 mg/hr, 20 mls/hr Documented By: TITI Discontinued Medications Pantoprazole Sodium 80 mg/ (Dextrose) 120 mls @ 480 mls/hr IV NOW ONE Stop: 08/25/24 00:19 Last Infusion: 08/25/24 00:56 Dose: Infused Documented By: Admin: 08/25/24 00:20 Dose: 480 mls/hr Documented By: TITI Pantoprazole Sodium (Pantoprazole Bolus/Drip) 1 each IV NOW STA Stop: 08/25/24 00:06 Last Admin: 08/25/24 00:20 Dose: 1 each Documented By: TITI Medical Decision Making Laboratory Data Attestation: I reviewed the patient's lab results. 08/24/24 22:52 08/24/24 22:52 Labs: Lab Results 08/24/24 08/24/24 Range/Units 22:52 23:30 WBC 5.89 (4.8-10.8) K/ul RBC 2.07 L (4.20-5.40) M/uL Hgb 4.6 L* (12.0-16.0) g/dl Hct 16.3 L* (37.0-47.0) % MCV 78.7 L (80.0-100.0) fL MCH 22.2 L (25.0-34.0) pg MCHC 28.2 L (32.0-36.0) g/dL RDW Std Deviation 53.8 H (36.4-46.3) fL RDW Coeff of Marisol 18.6 H (11.5-14.5) % Plt Count 300 (130-400) K/uL MPV 10.2 (9.4-12.4) fL Immature Gran % (Auto) 0.2 % Neut % (Auto) 48.6 % Lymph % (Auto) 35.8 % [place]eton % (Auto) 12.9 % Eos % (Auto) 2.0 % Baso % (Auto) 0.5 % Neut # (Auto) 2.86 (1.40-6.50) K/uL Lymph # (Auto) 2.11 (1.20-3.40) K/uL [place] # (Auto) 0.76 H (0.11-0.59) K/uL Eos # (Auto) 0.12 (0.00-0.50) K/uL Baso # (Auto) 0.03 (0.00-0.20) K/uL Immature Gran # (Auto) 0.01 (0.01-0.20) K/uL Polychromasia 3+ Poikilocytosis Present PT 10.7 (9.0-12.0) Seconds INR 1.0 (0.9-1.1) APTT 21 (21-31) Seconds PTT Ratio 0.8 Sodium 142 (136-145) mmol/L Potassium 3.6 (3.5-5.1) mmol/L Chloride 112 H (98-107) mmol/L Carbon Dioxide 24 (21-32) mmol/L Anion Gap 6 (3-11) BUN 28 H (6-23) mg/dl Creatinine 0.91 (0.6-1.2) mg/dl Est Cr Clr Drug Dosing 47.9 ml/min eGFR 60.30 BUN/Creatinine Ratio 30.8 H (10-20) Glucose 127 H (70-99(Fasting)) mg/dl Calcium 9.0 (8.6-10.3) mg/dl Magnesium 2.1 (1.7-2.4) mg/dl Total Bilirubin 0.9 (0.2-1.0) mg/dl Direct Bilirubin 0.1 (0-0.2) mg/dl AST 16 (13-39) U/L ALT 8 (7-52) U/L Alkaline Phosphatase 76 (34-104) U/L Troponin I High Sens 10.2 (0-14) pg/ml Total Protein 5.5 L (6.0-8.3) gm/dl Albumin 3.7 (3.4-5.0) gm/dl Lipase 32 (11-82) U/L Blood Type O Positive Antibody Screen NEGATIVE Crossmatch See Detail Imaging Data Chest x-ray: Attestation: I personally reviewed and interpreted this imaging study as follows: My impression: Chest x-ray: Cardiomegaly no significant cephalization Radiologist's impression: Chest X-Ray 08/24/24 23:02 Exam(s): XR CXR 1 VIEW EXAM: XR Chest, 1 View CLINICAL HISTORY: Reason for exam: Chest pain, nonspecific. TECHNIQUE: Frontal view of the chest. COMPARISON: 05/07/2024. FINDINGS: Lungs: No consolidation. There is mild pulmonary vascular congestion Pleural space: No pleural effusion is seen. No pneumothorax. Heart: The heart is enlarged.. Mediastinum: There is uncoiling calcification of the thoracic aorta.. IMPRESSION: Cardiomegaly with mild pulmonary vascular congestion may represent mild congestive heart failure. Electronically signed by: Suleiman Sandhu MD 08/25/24 00:20 AM ECG Data Attestation: I personally reviewed and interpreted this ECG as follows: Additional Comments: EKG at 0046: Junctional rhythm with rate of 76. QRS [address] elevation or ST depression. [facility] Narrative 2301: The patient was evaluated in room C2. A complete history and physical exam was performed Cardiac monitoring: An order was placed for continuous cardiac monitoring. The monitor shows a rate of 80 with sinus rhythm interpreted by me 0027: Vital signs stable. Patient's hemoglobin is 4.6. Troponin negative. Patient is DNR/DNI with limited interventions. I did discuss blood transfusion with the patient and the daughter at bedside. They are both okay with getting blood transfusion. Although Hemoccult was negative given the patient reported history of melanotic stools and hematochezia the patient will be started on Protonix bolus and drip. Impression & Plan GI bleed, Chest pain Critical Care Time Critical Care Time: Yes Total Critical Care Time: 83 I have personally spent greater than 83 minutes of critical care time in the direct management of this patient. This includes bedside care, interpretation of diagnostic studies, and testing, discussion with consultants, patient, and family members, and other required patient management activities. This 83 minutes is in excess of all separately billable procedures. Discharge Plan Visit Data Chief Complaint: Chest Pain Stated Complaint: Chest Pain ED Provider: Kiko Grover Discharge Problem: GI bleed, Chest pain Patient Disposition: Admitted As Inpatient Forms Stand Alone Forms: [facility] Prescriptions Prescriptions: No Action diclofenac sodium [Voltaren Arthritis Pain] 1 % gel 4 g topical QID PRN (Reason: Pain) Qty: 100 0RF Rx Instructions: unable to verify. no fill history/otc. apply to single knee, ankle up to 4 x day as needed metoprolol succinate 25 mg tablet extended release 24 hr 25 mg PO QAM Qty: 90 3RF atorvastatin 40 mg tablet 40 mg PO QAM Qty: 90 3RF Brilinta 90 mg tablet 90 mg PO BID Qty: 180 3RF furosemide 20 mg tablet 20 mg PO Q OTHER DAY Qty: 45 3RF nitroglycerin [Nitrostat] 0.4 mg tablet, sublingual 0.4 mg sublingual Q5M PRN (Reason: chest pain) Qty: 20 3RF multivitamin Tablet 1 tab PO QAM Rx Instructions: otc unable to verify cholecalciferol (vitamin D3) 50 mcg (2,000 unit) capsule 50 mcg PO QAM Rx Instructions: w/ food otc unable to verify Adult 50 Plus Probiotic 4 billion cell capsule 4,000 mmu cells PO DAILY Rx Instructions: otc. unable to verify administer with a meal amiodarone 200 mg Tablet 200 mg PO BIDM Qty: 60 0RF aspirin 81 mg Tablet,Delayed Release (Dr/Ec) 81 mg PO QAM Qty: 0 0RF Rx Instructions: buy 81 mg aspirin over the counter Referrals Referrals: Shivani Kamara MD [Primary Care Provider] -
[2024-08-25] MEDS: PANTOPRAZOLE BOLUS/DRIP IV STA (00:20)
[2024-08-25] MEDS: PANTOprazole 80 MG in DEXTROSE 5% 100 ML IV ONE (00:20)
--- NOTE | 2024-08-25 00:21 | XRay Report ---
Exam(s): XR CXR 1 VIEW EXAM: XR Chest, 1 View CLINICAL HISTORY: Reason for exam: Chest pain, nonspecific. TECHNIQUE: Frontal view of the chest. COMPARISON: 05/07/2024. FINDINGS: Lungs: No consolidation. There is mild pulmonary vascular congestion Pleural space: No pleural effusion is seen. No pneumothorax. Heart: The heart is enlarged.. Mediastinum: There is uncoiling calcification of the thoracic aorta.. IMPRESSION: Cardiomegaly with mild pulmonary vascular congestion may represent mild congestive heart failure. Electronically signed by: Suleiman Sandhu MD 08/25/24 00:20 AM
[2024-08-25 00:39] LABS: Basophils # (auto) 0.03 K/uL (0.00-0.20); Basophils % (auto) 0.5 %; Eosinophils # (auto) 0.12 K/uL (0.00-0.50); Immature Granulocytes # (auto) 0.01 K/uL (0.01-0.20); Immature Granulocytes % (auto) 0.2 %; Lymphocytes # (auto) 2.11 K/uL (1.20-3.40); Lymphocytes % (auto) 35.8 %; Monocytes # (auto) 0.76 K/uL (0.11-0.59); Monocytes % (auto) 12.9 %; Neutrophils # (auto) 2.86 K/uL (1.40-6.50); Neutrophils % (auto) 48.6 %; Poikilocytosis Present; Polychromasia 3+
[2024-08-25] MEDS: PANTOprazole 40 MG in DEXTROSE 5% MINI-B 100 ML IV SCH (00:41)
[2024-08-25] MEDS ORDERED: ACETAMINOPHEN 1,000 MG/100 ML VIAL IV PRN (00:47)
[2024-08-25] MEDS ORDERED: ONDANSETRON INJ 2 MG/ML 2 ML VIAL IV PRN ×2 (00:47→01:03)
[2024-08-25] MEDS ORDERED: cefTRIAXone SODIUM 2,000 MG/50 ML BAG IV STA (00:58)
--- NOTE | 2024-08-25 01:08 | History & Physical Report ---
Date of Service August 25, 2024 Assessment & Plan (1) GI bleed: (2) Symptomatic anemia: (3) Ischemic cardiomyopathy: (4) Chest pain: (5) Status post insertion of drug-eluting stent into left anterior descending (LAD) artery: Plan The patient is a 89-year-old female with past medical history including ischemic cardiomyopathy, PVCs, NSTEMI, mitral regurgitation, hypertension, insomnia, osteoarthritis, hyperlipidemia, HFrEF with ejection fraction 35 to 40%. She has been told by cardiology that due to a jailed diagonal vessel she would likely continue with low levels of angina.The patient presents to the emergency department with worsening chest pain and shortness of breath, reports utilizing a sublingual nitroglycerin today with no significant improvement in symptoms. The patient reports that she had noted some gradually worsening darkening of her stools, after having undergone a STEMI and placed on aspirin and Brilinta during admission from 05/07-05/10/2024 at [facility] postcardiac catheterization. She reports that since the past 4 to 6 weeks, she has been having gradually worsening fatigue, shortness of breath, dyspnea on exertion, and has noted gradually worsening of her stools from initially being dark to being more tarry. Upon arrival to the emergency department, patient had laboratories performed which showed a hemoglobin of 4.6, with most recent during admission of 05/20 of 12.5. She has been ordered 2 units PRBCs from the ED, and started on pantoprazole bolus and drip, and is referred for evaluation admission to [facility]. #Upper GI bleed/symptomatic anemia- Hemoglobin 4.6 on admission, with previous baseline 12.5 From her history, patient sounds like she has been gradually losing blood shortly after being started on aspirin and Brilinta following cardiac catheterization on 05/07/2024. She had been noted to have a black stool on 05/09, with heparin drip at that time being discontinued, and hemoglobin had remained stable with brown stool. It has not been until the past 4 to 6 weeks, patient has been calm more symptomatic, with shortness of breath, and chest tightness. She reports having used on average in the 1 sublingual nitroglycerin a week during the interval. Until yesterday, where she required 8 sublingual nitroglycerin and still had significant symptoms, which prompted her to come to the emergency department for assessment. Her daughter notes that her stools have gradually become more dark, until the past week or so the stools have become more tarry. Patient thought that she was as having heart failure issues, and did not present to the ED until more extreme symptoms that happened in the past 24 hours. The patient will be admitted to telemetry for serial cardiac enzymes, serial EKG's, cardiac rhythm monitoring. Most recent echocardiogram on 08/07/2024 with ejection fraction 55-60%, moderate mitral vegetation, moderate tricuspid regurgitation, severe left atrial enlargement. Hemoglobin 4.6 on admission. Hemoccult all stools To receive 2 units PRBCs from the ED H&H every 6 hours Transfusion goal is to minimum of 8, with patient's recent symptomatology will consider up to 10 N.p.o. except essential medications Holding aspirin and Brilinta Continue pantoprazole bolus/drip Consult gastroenterology #Status post DANNIE to LAD on 05/07/2024/ischemic cardiomyopathy- Patient was notified by cardiology that the jailed diagonal vessel, that she may have to deal with low levels of angina in the interim At this point her angina is likely associated to anemia, and treatment is to be transfused as noted Continue amiodarone 200 mg p.o. twice daily. No notations of arrhythmia Consult cardiology #Chronic medical conditions: Hyperlipidemia-temporarily hold atorvastatin while n.p.o. Vitamin D deficiency-temporarily holding vitamin D3 supplement History of Present Illness Chief Complaint: The patient presents to the emergency department with worsening chest pain and shortness of breath, reports utilizing a sublingual nitroglycerin today with no significant improvement in symptoms. The patient reports that she had noted some gradually worsening darkening of her stools, after having undergone a STEMI and placed on aspirin and Brilinta during admission from 05/07-05/10/2024 at [facility] postcardiac catheterization. She reports that since the past 4 to 6 weeks, she has been having gradually worsening fatigue, shortness of breath, dyspnea on exertion, and has noted gradually worsening of her stools from initially being dark to being more tarry. Upon arrival to the emergency department, patient had laboratories performed which showed a hemoglobin of 4.6, with most recent during admission of 05/20 of 12.5. She has been ordered 2 units PRBCs from the ED, and started on pantoprazole bolus and drip, and is referred for evaluation admission to [place] hospitalist service. Primary Care Provider: Shivani Kamara MD The patient is a 89-year-old female with past medical history including ischemic cardiomyopathy, PVCs, NSTEMI, mitral regurgitation, hypertension, insomnia, osteoarthritis, hyperlipidemia, HFrEF with ejection fraction 35 to 40%. She has been told by cardiology that due to a jailed diagonal vessel she would likely continue with low levels of angina.The patient presents to the emergency department with worsening chest pain and shortness of breath, reports utilizing a sublingual nitroglycerin today with no significant improvement in symptoms. The patient reports that she had noted some gradually worsening darkening of her stools, after having undergone a STEMI and placed on aspirin and Brilinta during admission from 05/07-05/10/2024 at [facility] postcardiac catheterization. She reports that since the past 4 to 6 weeks, she has been having gradually worsening fatigue, shortness of breath, dyspnea on exertion, and has noted gradually worsening of her stools from initially being dark to being more tarry. Upon arrival to the emergency department, patient had laboratories performed which showed a hemoglobin of 4.6, with most recent during admission of 05/20 of 12.5. She has been ordered 2 units PRBCs from the ED, and started on pantoprazole bolus and drip, and is referred for evaluation admission to [facility]. Allergies Allergy/AdvReac Type Severity Reaction Status Date / Time neomycin Allergy Mild redness Verified 07/11/24 12:52 Sulfa (Sulfonamide Allergy Mild GI Verified 07/11/24 12:52 Antibiotics) upset/colitis Home Medications Medication Instructions Recorded Confirmed Type cholecalciferol (vitamin D3) 50 50 mcg PO QAM 09/02/21 08/25/24 History mcg (2,000 unit) capsule multivitamin 1 tab PO QAM 09/02/21 08/25/24 History diclofenac sodium 1 % topical gel 4 g topical QID PRN Pain #100 grams 11/19/22 08/25/24 Rx (Voltaren Arthritis Pain) lactobacillus combination no.9 4 4,000 mmu cells PO DAILY 09/30/23 08/25/24 History billion cell capsule (Adult 50 Plus Probiotic) amiodarone 200 mg tablet 200 mg PO BIDM #60 tabs 05/10/24 08/25/24 Rx aspirin 81 mg tablet,delayed 81 mg PO QAM #0 tabs 05/10/24 08/25/24 Rx release atorvastatin 40 mg tablet 40 mg PO QAM #90 tabs 06/10/24 08/25/24 Rx metoprolol succinate 25 mg 25 mg PO QAM #90 tabs 06/10/24 08/25/24 Rx tablet,extended release 24 hr ticagrelor 90 mg tablet (Brilinta) 90 mg PO BID #180 tabs 07/10/24 08/25/24 Rx furosemide 20 mg tablet 20 mg PO Q OTHER DAY #45 tabs 08/06/24 08/25/24 Rx nitroglycerin 0.4 mg sublingual 0.4 mg sublingual Q5M PRN chest 08/21/24 08/25/24 Rx tablet (Nitrostat) pain #20 tabs Past Med/Surg History Problem List (Updated 08/25/24 @ 02:53 by Thomas Sierra MD) Status post insertion of drug-eluting stent into left anterior descending (LAD) artery Symptomatic anemia Chest pain (Acute) GI bleed (Acute) Ischemic cardiomyopathy Dyspnea PVCs (premature ventricular contractions) ST elevation (STEMI) myocardial infarction (Acute) Aortic valve sclerosis Mild mitral regurgitation by prior echocardiogram Osteoporosis Chronic knee pain after total replacement of knee joint 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, right Right knee DJD HTN (hypertension) (Chronic) Insomnia (Chronic) Osteoarthritis (Chronic) Hyperlipidemia Medical History History of placement of stent in LAD coronary artery Osteoarthritis Prediabetes Hgb A1C 5.7 on 09/02/21 Diverticulitis September 2021 No current issues Hx of hiatal hernia Hx of gastroesophageal reflux (GERD) Well controlled and stable Sleep apnea Hx; "lost weight, no longer need my machine" Did not get additional sleep study Surgical History History of open reduction and internal fixation (ORIF) procedure rt ankle History of esophagogastroduodenoscopy (EGD) Hx of colonoscopy Hx of cataract extraction rt/lt Hx of appendectomy S/P tubal ligation S/P tonsillectomy S/P cholecystectomy Status post total left knee replacement Family History Sister Breast cancer Other Heart disease Denies family history of Ovarian cancer Prostate cancer Lung cancer Colorectal cancer Social History Smoking Status: Former smoker Tobacco Type: Cigarettes Age Started Using Tobacco: 25; Age Quit Using Tobacco: 56; packs per day: 1; Second Hand Exposure: No; Do You Dip or Chew Tobacco: No; Hx Alcohol Use: No Hx Substance Use: No Preferred Language: Urugu[place] Communication Ability: Effective 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 Beliefs That Will Affect Care: Catholic marital status: / Current Living Situation: Family Current Living Situation Comment: lives at home with daughter current occupational status: retired current occupation: Retired Feels Safe at Home: Yes Childhood Exposure to Second-Hand Smoke: Yes Diet: regular caffeine: Yes Dental Care, Regularly: No Seatbelt Use: always Sunscreen Use: Yes Assistive Devices: None Review of Systems Review of Systems: The patient denies palpitations, cough, lower extremity swelling, sore throat, fevers, chills, sweats, weight change, fatigue, nausea, vomiting, diarrhea , constipation, abdominal pain, pelvic pain, blood in urine or stool, dysuria, urinary frequency or urgency, lightheadedness, dizziness, headache, memory loss, loss of consciousness, rash, abnormal bruising or bleeding, imbalance, focal weakness, numbness or tingling in arms or legs, generalized arthralgias or myalgias, back or neck pain, or night sweats. The review of systems is otherwise negative other than for that already noted above, and at least 10 systems have been reviewed. Physical Exam Physical Exam: The patient is awake, alert and oriented 3, well developed and well nourished, normocephalic and atraumatic, lying in bed and in no acute distress. HEENT--PERRL, EOMI, mucous membranes and oropharynx mildly dry. Neck--supple. No JVD. No bruits. Thyroid normal, trachea midline, no adenopathy. Heart--normal S1 and S2. No murmurs, rubs or gallops. Lungs--clear bilaterally, no respiratory distress, no accessory muscle use. Abdomen--normal bowel sounds and soft. Nontender. Nondistended, no hernias or masses, no organomegaly. Extremities--no cyanosis or clubbing. No edema. Dermatologic--normal skin turgor, normal color, no abnormal lymph nodes, no rash. Neurologic--cranial nerves II through XII grossly intact. Rheumatologic--normal range of motion. Psychiatric--normal affect. Results & Data Results & Data Vital Signs (Past 12 Hours) Vital Signs Temp Pulse Pulse Resp BP BP Pulse Ox 08/24/24 23:03 73 08/24/24 23:02 97 08/24/24 23:02 80 18 153/76 H 97 08/24/24 23:02 96 08/24/24 22:35 36.6 C 72 18 135/62 97 O2 Del Method 08/24/24 23:03 08/24/24 23:02 Room Air 08/24/24 23:02 Room Air 08/24/24 23:02 Room Air 08/24/24 22:35 Room Air Laboratory Results Laboratory Results WBC 5.89 K/ul (4.8-10.8) 08/24/24 22:52 RBC 2.07 M/uL (4.20-5.40) L 08/24/24 22:52 Hgb 4.6 g/dl (12.0-16.0) L* 08/24/24 22:52 Hct 16.3 % (37.0-47.0) L* 08/24/24 22:52 MCV 78.7 fL (80.0-100.0) L 08/24/24 22:52 MCH 22.2 pg (25.0-34.0) L 08/24/24 22:52 MCHC 28.2 g/dL (32.0-36.0) L 08/24/24 22:52 RDW Std Deviation 53.8 fL (36.4-46.3) H 08/24/24 22:52 RDW Coeff of Marisol 18.6 % (11.5-14.5) H 08/24/24 22:52 Plt Count 300 K/uL (130-400) 08/24/24 22:52 MPV 10.2 fL (9.4-12.4) 08/24/24 22:52 Immature Gran % (Auto) 0.2 % 08/24/24 22:52 Neut % (Auto) 48.6 % 08/24/24 22:52 Lymph % (Auto) 35.8 % 08/24/24 22:52 [place] % (Auto) 12.9 % 08/24/24 22:52 Eos % (Auto) 2.0 % 08/24/24 22:52 Baso % (Auto) 0.5 % 08/24/24 22:52 Neut # (Auto) 2.86 K/uL (1.40-6.50) 08/24/24 22:52 Lymph # (Auto) 2.11 K/uL (1.20-3.40) 08/24/24 22:52 [place] # (Auto) 0.76 K/uL (0.11-0.59) H 08/24/24 22:52 Eos # (Auto) 0.12 K/uL (0.00-0.50) 08/24/24 22:52 Baso # (Auto) 0.03 K/uL (0.00-0.20) 08/24/24 22:52 Immature Gran # (Auto) 0.01 K/uL (0.01-0.20) 08/24/24 22:52 Polychromasia 3+ 08/24/24 22:52 Poikilocytosis Present 08/24/24 22:52 PT 10.7 Seconds (9.0-12.0) 08/24/24 22:52 INR 1.0 (0.9-1.1) 08/24/24 22:52 APTT 21 Seconds (21-31) 08/24/24 22:52 PTT Ratio 0.8 08/24/24 22:52 Sodium 142 mmol/L (136-145) 08/24/24 22:52 Potassium 3.6 mmol/L (3.5-5.1) 08/24/24 22:52 Chloride 112 mmol/L (98-107) H 08/24/24 22:52 Carbon Dioxide 24 mmol/L (21-32) 08/24/24 22:52 Anion Gap 6 (3-11) 08/24/24 22:52 BUN 28 mg/dl (6-23) H 08/24/24 22:52 Creatinine 0.91 mg/dl (0.6-1.2) 08/24/24 22:52 Est Cr Clr Drug Dosing 47.9 ml/min 08/24/24 22:52 eGFR 60.30 02/28/25 22:52 BUN/Creatinine Ratio 30.8 (10-20) H 08/24/24 22:52 Glucose 127 mg/dl (70-99(Fasting)) H 08/24/24 22:52 Calcium 9.0 mg/dl (8.6-10.3) 08/24/24 22:52 Magnesium 2.1 mg/dl (1.7-2.4) 08/24/24 22:52 Total Bilirubin 0.9 mg/dl (0.2-1.0) 08/24/24 22:52 Direct Bilirubin 0.1 mg/dl (0-0.2) 08/24/24 22:52 AST 16 U/L (13-39) 08/24/24 22:52 ALT 8 U/L (7-52) 08/24/24 22:52 Alkaline Phosphatase 76 U/L (34-104) 08/24/24 22:52 Troponin I High Sens 10.2 pg/ml (0-14) 08/24/24 22:52 Total Protein 5.5 gm/dl (6.0-8.3) L 08/24/24 22:52 Albumin 3.7 gm/dl (3.4-5.0) 08/24/24 22:52 Lipase 32 U/L (11-82) 08/24/24 22:52 Blood Type O Positive 08/24/24 23:30 Antibody Screen NEGATIVE 08/24/24 23:30 Crossmatch See Detail 08/24/24 23:30 Impressions Chest X-Ray 08/24/24 23:02 Exam(s): XR CXR 1 VIEW EXAM: XR Chest, 1 View CLINICAL HISTORY: Reason for exam: Chest pain, nonspecific. TECHNIQUE: Frontal view of the chest. COMPARISON: 05/07/2024. FINDINGS: Lungs: No consolidation. There is mild pulmonary vascular congestion Pleural space: No pleural effusion is seen. No pneumothorax. Heart: The heart is enlarged.. Mediastinum: There is uncoiling calcification of the thoracic aorta.. IMPRESSION: Cardiomegaly with mild pulmonary vascular congestion may represent mild congestive heart failure. Electronically signed by: Suleiman Sandhu MD 08/25/24 00:20 AM Code Status & VTE Plan Code Status Full code VTE Prophylaxis Plan VTE Prophylaxis will be ordered: Yes PG Care Time/CCT Total # of Minutes Spent Total Time Spent with Patient: Total time spent is greater than 50% in coordination of care (as documented) at patient's floor/unit and/or counseling patient: Coding Level of Care Code 58778 INT INP/OBS CARE 3/75MIN Diagnoses GI bleed K92.2 Symptomatic anemia D64.9 Ischemic cardiomyopathy I25.5 Chest pain R07.9 Status post insertion of drug-eluting stent into left anterior descending (LAD) artery Z95.5
[2024-08-25] MEDS: cefTRIAXone SODIUM 2,000 MG/50 ML BAG IV SCH (04:39)
[2024-08-25] MEDS: AMIODARONE 200 MG TAB PO SCH (08:40)
[2024-08-25 08:54] LABS: Hematocrit (blood only) 22.6 % (37.0-47.0); Hemoglobin 6.9 g/dl (12.0-16.0); Mean Corpuscular Hemoglobin 24.7 pg (25.0-34.0); Mean Corpuscular Hgb Conc 30.5 g/dL (32.0-36.0); Mean Platelet Volume 10.3 fL (9.4-12.4); Platelet Count 234 K/uL (130-400); RDW Coefficient of Variation 17.6 % (11.5-14.5); RDW Standard Deviation 52.4 fL (36.4-46.3); Red Blood Count 2.79 M/uL (4.20-5.40); White Blood Count 4.94 K/ul (4.8-10.8)
[2024-08-25] MEDS ORDERED: cefTRIAXone SODIUM 2,000 MG/50 ML BAG IV SCH (09:00)
[2024-08-25 09:02] LABS: Albumin Globulin Ratio 1.7 (0.9-2); Albumin Level 3.3 gm/dl (3.4-5.0); BUN Creatinine Ratio 31.7 (10-20); Bilirubin,Total 1.3 mg/dl (0.2-1.0); Creatinine Clr Calc Pharmacy 53.2 ml/min; Globulin 1.9 gm/dl (2.5-4.0); Potassium 3.9 mmol/L (3.5-5.1); Total Protein 5.2 gm/dl (6.0-8.3)
[2024-08-25 09:09] LABS: Prothrombin Time 11.1 Seconds (9.0-12.0)
--- NOTE | 2024-08-25 09:17 | Gastrointestinal Consultation ---
Date of Consultation August 25, 2024 Assessment & Plan (1) Symptomatic anemia: Pleasant woman with slow GI bleeding manifested as dark stools for the past three months and admission hemoglobin of 4.9. She does have microcytic anemia so that points to a more chronic issue. I do think she needs EGD and with being a slow bleed will plan to do on Tuesday to give brilinta a few days to wear off. Would like clearance from cardiology since it is so soon after IA and stent placement History of Present Illness Reason for Consultation: bleeding Attending Physician: Panda Robles MD History of Present Illness 89 year old female with recent STEMI in April discharged on brilinta and aspirin. She says she noticed dark stools from that point on. She says she is always constipated and she remained constipated during this time as stools became darker. Recently they have become black but she never developed frequent stooling. The last bowel movement she had was the day of admission and it was "a constipated stool that was dark brown". She had become short of breath and developed chest pains not responsive to NTG. She did not have any stomach complaints during this time but today she feels a little indigestion. She says she has a hiatal hernia but does not take any meds for her stomach. She denies NSAID usage. Her last colonoscopy was in "1978". Allergies Allergy/AdvReac Type Severity Reaction Status Date / Time neomycin Allergy Mild redness Verified 07/11/24 12:52 Sulfa (Sulfonamide Allergy Mild GI Verified 07/11/24 12:52 Antibiotics) upset/colitis Home Medications Medication Instructions Recorded Confirmed Type cholecalciferol (vitamin D3) 50 50 mcg PO QAM 09/02/21 08/25/24 History mcg (2,000 unit) capsule multivitamin 1 tab PO QAM 09/02/21 08/25/24 History diclofenac sodium 1 % topical gel 4 g topical QID PRN Pain #100 grams 11/19/22 08/25/24 Rx (Voltaren Arthritis Pain) lactobacillus combination no.9 4 4,000 mmu cells PO DAILY 09/30/23 08/25/24 History billion cell capsule (Adult 50 Plus Probiotic) amiodarone 200 mg tablet 200 mg PO BIDM #60 tabs 05/10/24 08/25/24 Rx aspirin 81 mg tablet,delayed 81 mg PO QAM #0 tabs 05/10/24 08/25/24 Rx release atorvastatin 40 mg tablet 40 mg PO QAM #90 tabs 06/10/24 08/25/24 Rx metoprolol succinate 25 mg 25 mg PO QAM #90 tabs 06/10/24 08/25/24 Rx tablet,extended release 24 hr ticagrelor 90 mg tablet (Brilinta) 90 mg PO BID #180 tabs 07/10/24 08/25/24 Rx furosemide 20 mg tablet 20 mg PO Q OTHER DAY #45 tabs 08/06/24 08/25/24 Rx nitroglycerin 0.4 mg sublingual 0.4 mg sublingual Q5M PRN chest 08/21/24 08/25/24 Rx tablet (Nitrostat) pain #20 tabs Patient History Medical History History of placement of stent in LAD coronary artery Osteoarthritis Prediabetes Hgb A1C 5.7 on 09/02/21 Diverticulitis September 2021 No current issues Hx of hiatal hernia Hx of gastroesophageal reflux (GERD) Well controlled and stable Sleep apnea Hx; "lost weight, no longer need my machine" Did not get additional sleep study Surgical History History of open reduction and internal fixation (ORIF) procedure rt ankle History of esophagogastroduodenoscopy (EGD) Hx of colonoscopy Hx of cataract extraction rt/lt Hx of appendectomy S/P tubal ligation S/P tonsillectomy S/P cholecystectomy Status post total left knee replacement Family History Sister Breast cancer Other Heart disease Denies family history of Ovarian cancer Prostate cancer Lung cancer Colorectal cancer Social History Smoking Status: Former smoker Tobacco Type: Cigarettes Age Started Using Tobacco: 25; Age Quit Using Tobacco: 56; packs per day: 1; Second Hand Exposure: No; Do You Dip or Chew Tobacco: No; Tobacco Cessation Education Requested by Patient: No Hx Alcohol Use: No Hx Substance Use: No Preferred Language: Austrian Communication Ability: Effective 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 Beliefs That Will Affect Care: None marital status: / Current Living Situation: Family Current Living Situation Comment: Home with daughter current occupational status: retired current occupation: Retired Other Information That Helps Us Care for You: No Feels Safe at Home: Yes Safety Concerns: Feels Safe At This Time Childhood Exposure to Second-Hand Smoke: Yes Diet: regular caffeine: Yes Dental Care, Regularly: No Seatbelt Use: always Sunscreen Use: Yes Assistive Devices: Denture - Upper and Glasses Review of Systems Review of Systems: All systems reviewed & are unremarkable except as noted in HPI & below Physical Exam Physical Exam: Pleasant female in no distress Constitutional: WD/WN, vitals as above Neck: trachea midline, no thyromegaly Respiratory: normal respiratory effort, lungs clear to auscultation Cardiovascular: RRR, no murmur, no edema Gastrointestinal (Abdomen): normal bowel sounds, soft, nontender, no hepatosplenomegaly Results & Data Vital Signs (Past 12 Hours) Vital Signs Temp Pulse Pulse Resp BP BP Pulse Ox 08/25/24 08:51 36.7 C 67 20 112/69 99 08/25/24 07:11 36.6 C 64 18 104/63 98 08/25/24 07:06 36.6 C 64 16 104/63 98 08/25/24 06:37 36.8 C 64 16 115/66 98 08/25/24 05:37 36.7 C 62 18 121/71 98 08/25/24 05:34 08/25/24 05:07 36.8 C 62 16 119/71 97 08/25/24 04:52 36.9 C 60 16 127/76 98 08/25/24 04:33 36.9 C 60 16 120/71 99 08/25/24 04:15 36.9 C 60 16 120/71 99 08/25/24 03:27 68 08/25/24 03:15 36.7 C 71 16 143/76 H 98 08/25/24 02:15 36.4 C L 86 20 126/84 97 08/25/24 01:45 36.8 C 67 18 124/60 97 08/25/24 01:30 36.7 C 68 18 122/54 L 97 08/25/24 01:25 36.6 C 70 16 125/62 99 08/25/24 01:20 36.8 C 70 18 126/60 98 08/25/24 01:12 37.0 C 70 24 124/57 L 99 08/24/24 23:03 73 08/24/24 23:02 97 08/24/24 23:02 80 18 153/76 H 97 08/24/24 23:02 96 08/24/24 22:35 36.6 C 72 18 135/62 97 O2 Del Method 08/25/24 08:51 Room Air 08/25/24 07:11 08/25/24 07:06 08/25/24 06:37 08/25/24 05:37 08/25/24 05:34 Room Air 08/25/24 05:07 08/25/24 04:52 08/25/24 04:33 08/25/24 04:15 08/25/24 03:27 08/25/24 03:15 08/25/24 02:15 08/25/24 01:45 08/25/24 01:30 08/25/24 01:25 08/25/24 01:20 08/25/24 01:12 08/24/24 23:03 08/24/24 23:02 Room Air 08/24/24 23:02 Room Air 08/24/24 23:02 Room Air 08/24/24 22:35 Room Air Laboratory Results 08/25/24 08/24/24 08/24/24 Range/Units 08:14 23:30 22:52 WBC 4.94 5.89 (4.8-10.8) K/ul RBC 2.79 L 2.07 L (4.20-5.40) M/uL Hgb 6.9 L* 4.6 L* (12.0-16.0) g/dl Hct 22.6 L 16.3 L* (37.0-47.0) % MCV 81.0 78.7 L (80.0-100.0) fL MCH 24.7 L 22.2 L (25.0-34.0) pg MCHC 30.5 L 28.2 L (32.0-36.0) g/dL RDW Std Deviation 52.4 H 53.8 H (36.4-46.3) fL RDW Coeff of Marisol 17.6 H 18.6 H (11.5-14.5) % Plt Count 234 300 (130-400) K/uL MPV 10.3 10.2 (9.4-12.4) fL Immature Gran % (Auto) 0.2 % Neut % (Auto) 48.6 % Lymph % (Auto) 35.8 % [place] % (Auto) 12.9 % Eos % (Auto) 2.0 % Baso % (Auto) 0.5 % Neut # (Auto) 2.86 (1.40-6.50) K/uL Lymph # (Auto) 2.11 (1.20-3.40) K/uL [place] # (Auto) 0.76 H (0.11-0.59) K/uL Eos # (Auto) 0.12 (0.00-0.50) K/uL Baso # (Auto) 0.03 (0.00-0.20) K/uL Immature Gran # (Auto) 0.01 (0.01-0.20) K/uL Polychromasia 3+ Poikilocytosis Present PT 11.1 10.7 (9.0-12.0) Seconds INR 1.0 1.0 (0.9-1.1) APTT 21 (21-31) Seconds PTT Ratio 0.8 Sodium 143 142 (136-145) mmol/L Potassium 3.9 3.6 (3.5-5.1) mmol/L Chloride 114 H 112 H (98-107) mmol/L Carbon Dioxide 24 24 (21-32) mmol/L Anion Gap 5 6 (3-11) BUN 26 H 28 H (6-23) mg/dl Creatinine 0.82 0.91 (0.6-1.2) mg/dl Est Cr Clr Drug Dosing 53.2 47.9 ml/min eGFR 68.33 60.30 BUN/Creatinine Ratio 31.7 H 30.8 H (10-20) Glucose 94 127 H (70-99(Fasting)) mg/dl Calcium 8.0 L 9.0 (8.6-10.3) mg/dl Magnesium 2.1 (1.7-2.4) mg/dl Total Bilirubin 1.3 H 0.9 (0.2-1.0) mg/dl Direct Bilirubin 0.1 (0-0.2) mg/dl AST 13 16 (13-39) U/L ALT 8 8 (7-52) U/L Alkaline Phosphatase 55 76 (34-104) U/L Troponin I High Sens 23.0 H D 10.2 (0-14) pg/ml Total Protein 5.2 L 5.5 L (6.0-8.3) gm/dl Albumin 3.3 L 3.7 (3.4-5.0) gm/dl Globulin 1.9 L (2.5-4.0) gm/dl Albumin/Globulin Ratio 1.7 (0.9-2) Lipase 32 (11-82) U/L Blood Type O Positive Antibody Screen NEGATIVE Crossmatch See Detail Diagnostic Findings Chest X-Ray 08/24/24 23:02 Exam(s): XR CXR 1 VIEW EXAM: XR Chest, 1 View CLINICAL HISTORY: Reason for exam: Chest pain, nonspecific. TECHNIQUE: Frontal view of the chest. COMPARISON: 05/07/2024. FINDINGS: Lungs: No consolidation. There is mild pulmonary vascular congestion Pleural space: No pleural effusion is seen. No pneumothorax. Heart: The heart is enlarged.. Mediastinum: There is uncoiling calcification of the thoracic aorta.. IMPRESSION: Cardiomegaly with mild pulmonary vascular congestion may represent mild congestive heart failure. Electronically signed by: Suleiman Sandhu MD 08/25/24 00:20 AM
[2024-08-25 09:18] LABS: Basophils # (auto) 0.03 K/uL (0.00-0.20); Basophils % (auto) 0.6 %; Hypochromasia Present; Immature Granulocytes # (auto) 0.01 K/uL (0.01-0.20); Immature Granulocytes % (auto) 0.2 %; Lymphocytes # (auto) 1.47 K/uL (1.20-3.40); Lymphocytes % (auto) 29.8 %; Monocytes # (auto) 0.64 K/uL (0.11-0.59); Neutrophils # (auto) 2.69 K/uL (1.40-6.50); Neutrophils % (auto) 54.4 %; Poikilocytosis Present; Polychromasia 2+
--- NOTE | 2024-08-25 10:14 | Cardiology Consultation ---
Date of Consultation August 25, 2024 Assessment & Plan (1) GI bleed: (2) Status post insertion of drug-eluting stent into left anterior descending (LAD) artery: (3) Elevated troponin level: (4) On amiodarone therapy: (5) Chest pain: Plan 1. GI bleed: She had a severe GI bleed and requires evaluation, that is underway. In the meantime her platelet inhibition might be contributing to the bleed. 2. Coronary disease with stent placement: This was done in mid April, it has therefore been 3 months and she has been maintained on platelet inhibition. Although not ideal discontinuing platelet inhibition at this point is probably indicated due to its effect on the GI bleeding, I think it is acceptable to discontinue it for the time being, hopefully can be reinitiated once the bleed location has been identified and treated. 3. Elevated troponin: Her high-sensitivity troponin is minimally elevated, it is actually surprisingly low given this scenario although it may rise. I do not believe that this indicates an acute event but I would continue to trend the measurements. 4. Amiodarone therapy: I am not sure why she is still on amiodarone, during her acute presentation in April 2024 with a STEMI she had ventricular arrhythmias and was started on it, I do not know that she needs to remain on it. 5. Chest discomfort: She has had stable "angina" since her stent placement which has been attributed to her jailed artery at stent placement. However it is interesting that she had quite severe prolonged chest discomfort yesterday, taking 8 nitroglycerin without relief, and yet having minimal troponin rise. It is conceivable that her chest discomfort is actually something like peptic ulcer disease mistaken for angina. History of Present Illness Reason for Consultation: GI bleed, coronary artery disease Attending Physician: Panda Robles MD History of Present Illness This is an 89-year-old female who sees Dr. Joshua as an outpatient for coronary disease, hypertension, dyslipidemia, and ischemic cardiomyopathy. She presented to the [facility] with acute anterior ST elevation CO on May 07, 2024. She was taken emergently to the cardiac catheterization suite where we performed shockwave intracoronary lithotripsy followed by PCI of the proximal LAD. A 2.5 x 18 mm ern[place] point drug-eluting stent was placed. She had a jailed diagonal but we were unable to open this further. Fortunately the flow improved with medication. Echocardiogram was performed demonstrating moderate LV dysfunction with wall motion abnormalities consistent with LAD territory infarct. She also has severe left atrial enlargement and moderate mitral and tricuspid regurgitation. She was seen by Dr. Joshua in follow-up on July 11, 2024. His note indicates that she has been participating in cardiac rehab and finds that it is helpful. She occasionally develops chest tightness which is relieved with sublingual nitroglycerin. Her jailed diagonal vessel would likely continue with low levels of angina. She will continue to treat this with nitroglycerin. She also has exertional dyspnea which is mild. She was having some lower extremity edema but was provided furosemide and finds that she rarely has significant edema at this time. An echocardiogram done August 07, 2024 demonstrated normal left ventricular systolic function with some wall motion abnormalities in the LAD distribution and an akinetic apex. 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 She is currently planned to have an EGD on August 27, 2024, hopefully off of Brilinta. As an outpatient she is on amiodarone, atorvastatin metoprolol succinate 25 mg daily and ticagrelor 90 mg twice a day as well as as needed nitroglycerin. She describes using 8 nitroglycerin yesterday before presentation, for what she considers to be her angina, and it was not relieved. When she got blood and came to the hospital her discomfort was relieved. In the past she has used them on occasion for similar discomfort assumed to be angina. Her high-sensitivity troponin is minimally elevated this morning (23), which is not surprising with her known coronary artery disease and this degree of anemia. This may rise further. Liver function tests are good. She feels very well currently after receiving blood, she has been up walking around her room and has not had chest discomfort, shortness of breath or other cardiovascular symptoms. Allergies Allergy/AdvReac Type Severity Reaction Status Date / Time neomycin Allergy Mild redness Verified 07/11/24 12:52 Sulfa (Sulfonamide Allergy Mild GI Verified 07/11/24 12:52 Antibiotics) upset/colitis Home Medications Medication Instructions Recorded Confirmed Type cholecalciferol (vitamin D3) 50 50 mcg PO QAM 09/02/21 08/25/24 History mcg (2,000 unit) capsule multivitamin 1 tab PO QAM 09/02/21 08/25/24 History diclofenac sodium 1 % topical gel 4 g topical QID PRN Pain #100 grams 11/19/22 08/25/24 Rx (Voltaren Arthritis Pain) lactobacillus combination no.9 4 4,000 mmu cells PO DAILY 09/30/23 08/25/24 History billion cell capsule (Adult 50 Plus Probiotic) amiodarone 200 mg tablet 200 mg PO BIDM #60 tabs 05/10/24 08/25/24 Rx aspirin 81 mg tablet,delayed 81 mg PO QAM #0 tabs 05/10/24 08/25/24 Rx release atorvastatin 40 mg tablet 40 mg PO QAM #90 tabs 06/10/24 08/25/24 Rx metoprolol succinate 25 mg 25 mg PO QAM #90 tabs 06/10/24 08/25/24 Rx tablet,extended release 24 hr ticagrelor 90 mg tablet (Brilinta) 90 mg PO BID #180 tabs 07/10/24 08/25/24 Rx furosemide 20 mg tablet 20 mg PO Q OTHER DAY #45 tabs 08/06/24 08/25/24 Rx nitroglycerin 0.4 mg sublingual 0.4 mg sublingual Q5M PRN chest 08/21/24 08/25/24 Rx tablet (Nitrostat) pain #20 tabs Patient History Medical History History of placement of stent in LAD coronary artery Osteoarthritis Prediabetes Hgb A1C 5.7 on 09/02/21 Diverticulitis September 2021 No current issues Hx of hiatal hernia Hx of gastroesophageal reflux (GERD) Well controlled and stable Sleep apnea Hx; "lost weight, no longer need my machine" Did not get additional sleep study Surgical History History of open reduction and internal fixation (ORIF) procedure rt ankle History of esophagogastroduodenoscopy (EGD) Hx of colonoscopy Hx of cataract extraction rt/lt Hx of appendectomy S/P tubal ligation S/P tonsillectomy S/P cholecystectomy Status post total left knee replacement Family History Sister Breast cancer Other Heart disease Denies family history of Ovarian cancer Prostate cancer Lung cancer Colorectal cancer Social History Smoking Status: Former smoker Tobacco Type: Cigarettes Age Started Using Tobacco: 25; Age Quit Using Tobacco: 56; packs per day: 1; Second Hand Exposure: No; Do You Dip or Chew Tobacco: No; Tobacco Cessation Education Requested by Patient: No Hx Alcohol Use: No Hx Substance Use: No Preferred Language: Salvadorean Communication Ability: Effective Gas Charger Required: No Beliefs That Will Affect Care: None marital status: / Current Living Situation: Family Current Living Situation Comment: Home with daughter current occupational status: retired current occupation: Retired Other Information That Helps Us Care for You: No Feels Safe at Home: Yes Safety Concerns: Feels Safe At This Time Childhood Exposure to Second-Hand Smoke: Yes Diet: regular caffeine: Yes Dental Care, Regularly: No Seatbelt Use: always Sunscreen Use: Yes Assistive Devices: Denture - Upper and Glasses Review of Systems Review of Systems: All systems reviewed & are unremarkable except as noted in HPI & below Physical Exam Physical Exam: Constitutional: Alert, cooperative and in no distress. HEENT: Unremarkable Neck: No jugular venous distention, carotid pulses are normal and equal bilaterally without bruits. Pulmonary: Clear to auscultation bilaterally. Cardiac: Regular rhythm with no murmur, gallop or rub. Abdomen: Soft, nontender with normal bowel sounds. Extremities: No edema. Neurologic: No focal findings. Skin: No rash, ecchymoses or petechiae. Results & Data Vital Signs (Past 12 Hours) Vital Signs Temp Pulse Pulse Resp BP BP Pulse Ox 08/25/24 09:38 62 08/25/24 08:51 36.7 C 67 20 112/69 99 08/25/24 07:11 36.6 C 64 18 104/63 98 08/25/24 07:06 36.6 C 64 16 104/63 98 08/25/24 06:37 36.8 C 64 16 115/66 98 08/25/24 05:37 36.7 C 62 18 121/71 98 08/25/24 05:34 08/25/24 05:07 36.8 C 62 16 119/71 97 08/25/24 04:52 36.9 C 60 16 127/76 98 08/25/24 04:33 36.9 C 60 16 120/71 99 08/25/24 04:15 36.9 C 60 16 120/71 99 08/25/24 03:27 68 08/25/24 03:15 36.7 C 71 16 143/76 H 98 08/25/24 02:15 36.4 C L 86 20 126/84 97 08/25/24 01:45 36.8 C 67 18 124/60 97 08/25/24 01:30 36.7 C 68 18 122/54 L 97 08/25/24 01:25 36.6 C 70 16 125/62 99 08/25/24 01:20 36.8 C 70 18 126/60 98 08/25/24 01:12 37.0 C 70 24 124/57 L 99 08/24/24 23:03 73 08/24/24 23:02 97 08/24/24 23:02 80 18 153/76 H 97 08/24/24 23:02 96 08/24/24 22:35 36.6 C 72 18 135/62 97 O2 Del Method 08/25/24 09:38 08/25/24 08:51 Room Air 08/25/24 07:11 08/25/24 07:06 08/25/24 06:37 08/25/24 05:37 08/25/24 05:34 Room Air 08/25/24 05:07 08/25/24 04:52 08/25/24 04:33 08/25/24 04:15 08/25/24 03:27 08/25/24 03:15 08/25/24 02:15 08/25/24 01:45 08/25/24 01:30 08/25/24 01:25 08/25/24 01:20 08/25/24 01:12 08/24/24 23:03 08/24/24 23:02 Room Air 08/24/24 23:02 Room Air 08/24/24 23:02 Room Air 08/24/24 22:35 Room Air Laboratory Results Cardiac Enzymes 08/24/24 08/25/24 Range/Units 22:52 08:14 AST 16 13 (13-39) U/L Troponin I High Sens 10.2 23.0 H D (0-14) pg/ml Coagulation 08/24/24 08/25/24 Range/Units 22:52 08:14 PT 10.7 11.1 (9.0-12.0) Seconds APTT 21 (21-31) Seconds CBC 08/24/24 08/25/24 Range/Units 22:52 08:14 WBC 5.89 4.94 (4.8-10.8) K/ul RBC 2.07 L 2.79 L (4.20-5.40) M/uL Hgb 4.6 L* 6.9 L* (12.0-16.0) g/dl Hct 16.3 L* 22.6 L (37.0-47.0) % Plt Count 300 234 (130-400) K/uL Neut # (Auto) 2.86 2.69 (1.40-6.50) K/uL Lymph # (Auto) 2.11 1.47 (1.20-3.40) K/uL [place] # (Auto) 0.76 H 0.64 H (0.11-0.59) K/uL Eos # (Auto) 0.12 0.10 (0.00-0.50) K/uL Baso # (Auto) 0.03 0.03 (0.00-0.20) K/uL Comprehensive Metabolic Panel 08/24/24 08/25/24 Range/Units 22:52 08:14 Sodium 142 143 (136-145) mmol/L Potassium 3.6 3.9 (3.5-5.1) mmol/L Chloride 112 H 114 H (98-107) mmol/L Carbon Dioxide 24 24 (21-32) mmol/L BUN 28 H 26 H (6-23) mg/dl Creatinine 0.91 0.82 (0.6-1.2) mg/dl Glucose 127 H 94 (70-99(Fasting)) mg/dl Calcium 9.0 8.0 L (8.6-10.3) mg/dl Direct Bilirubin 0.1 (0-0.2) mg/dl AST 16 13 (13-39) U/L ALT 8 8 (7-52) U/L Alkaline Phosphatase 76 55 (34-104) U/L Total Protein 5.5 L 5.2 L (6.0-8.3) gm/dl Albumin 3.7 3.3 L (3.4-5.0) gm/dl Intake and Output 08/24/24 08/25/24 08/25/24 22:59 06:59 14:59 Intake Total 579 / 579 410 / 410 Balance 579 / 579 410 / 410 Intake: IV 269 / 269 100 / 100 PANTOprazole 40 mg In Dextrose 99 / 99 100 / 100 5% Mini-B 100 ml @ 8 MG/HR 20 mls/hr IV Q5H [facility] Rx#:[id number] PANTOprazole 80 mg In Dextrose 120 / 120 5% 100 ml @ 480 mls/hr IV NOW ONE Rx#:[id number] cefTRIAXone SODIUM 2,000 mg In 50 / 50 50 ml @ 100 mls/hr IV Q24H [facility] Rx#:[id number] Intake (Blood Product) Amt 310 / 310 310 / 310 Packed Cells, Leukoreduced 310 / 310 Unit [id number] Packed Cells, Leukoreduced 0 / 0 310 / 310 Unit [id number] Other: Other Intake Source Patient is NPO Weight 95.5 kg Weight Measurement Method Chair Scale Diagnostic Findings Telemetry: Sinus rhythm with first-degree AV block, heart rate in the 60s predominantly. No significant arrhythmia. PG Care Time/CCT Total # of Minutes Spent Total Time Spent with Patient: Total time spent is greater than 50% in coordination of care (as documented) at patient's floor/unit and/or counseling patient: Coding Level of Care Code 69396 INT INP/OBS CARE 3/75MIN Diagnoses GI bleed K92.2 Status post insertion of drug-eluting stent into left anterior descending (LAD) artery Z95.5 Elevated troponin level R79.89 On amiodarone therapy Z79.899 Chest pain R07.9
--- NOTE | 2024-08-25 10:40 | Hospitalist Progress Note ---
Date of Service August 25, 2024 Assessment & Plan (1) GI bleed: (2) Symptomatic anemia: (3) Ischemic cardiomyopathy: (4) Chest pain: (5) Status post insertion of drug-eluting stent into left anterior descending (LAD) artery: Plan The patient is a 89-year-old female with past medical history including ischemic cardiomyopathy, PVCs, NSTEMI, mitral regurgitation, hypertension, insomnia, osteoarthritis, hyperlipidemia, HFrEF with ejection fraction 35 to 40%. She has been told by cardiology that due to a jailed diagonal vessel she would likely continue with low levels of angina.The patient presents to the emergency department with worsening chest pain and shortness of breath, reports utilizing a sublingual nitroglycerin today with no significant improvement in symptoms. The patient reports that she had noted some gradually worsening darkening of her stools, after having undergone a STEMI and placed on aspirin and Brilinta during admission from 05/07-05/10/2024 at [facility] postcardiac catheterization. She reports that since the past 4 to 6 weeks, she has been having gradually worsening fatigue, shortness of breath, dyspnea on exertion, and has noted gradually worsening of her stools from initially being dark to being more tarry. Upon arrival to the emergency department, patient had laboratories performed which showed a hemoglobin of 4.6, with most recent during admission of 05/20 of 12.5. She has been ordered 2 units PRBCs from the ED, and started on pantoprazole bolus and drip, and is referred for evaluation admission to [facility]. #Upper GI bleed/symptomatic anemia- Hemoglobin 4.6 on admission, with previous baseline 12.5 most likely upper GI bleed due to ASA and Brillinta use She is now s/p transfusion of 2 units of blood, hb still 6.9, will give one more unit Cardiology Ok with holding Brillinta until EGD on Tuesday Continue pantoprazole bolus/drip Appreciate GI recs #Status post DANNIE to LAD on 05/07/2024/ischemic cardiomyopathy- At this point her angina is likely associated to anemia, and treatment is to be transfused as noted Most recent echocardiogram on 08/07/2024 with ejection fraction 55-60%, moderate mitral vegetation, moderate tricuspid regurgitation, severe left atrial enlargement. Discontinue Amiodarone Appreciate cardiology #Chronic medical conditions: Hyperlipidemia-temporarily hold atorvastatin while n.p.o. Vitamin D deficiency-temporarily holding vitamin D3 supplement Admission and Anticipated Discharge Date Admission Date: August 25, 2024 Subjective patient seen and examined, says her chest pain is resolved Review of Systems Review of Systems: All systems reviewed are negative, apart from the ones contained in the history. Physical Exam Physical Exam: The patient is awake, alert and oriented 3, well developed and well nourished, normocephalic and atraumatic, lying in bed and in no acute distress. HEENT--PERRL, EOMI, mucous membranes and oropharynx mildly dry Neck--supple. No JVD. No bruits. Thyroid normal, trachea midline, no adenopathy. Heart--normal S1 and S2. No murmurs, rubs or gallops. Lungs--clear bilaterally, no respiratory distress, no accessory muscle use. Abdomen--normal bowel sounds and soft. Extremities--no cyanosis or clubbing. No edema. Dermatologic--normal skin turgor, normal color, no abnormal lymph nodes, no rash. Neurologic--cranial nerves II through XII grossly intact. Rheumatologic--normal range of motion. Psychiatric--normal affect. Results & Data Results & Data Vital Signs (Past 12 Hours) Vital Signs Temp Pulse Pulse Resp BP BP Pulse Ox 08/25/24 09:38 62 08/25/24 08:51 98.1 F 67 20 112/69 99 08/25/24 07:11 97.9 F 64 18 104/63 98 08/25/24 07:06 97.9 F 64 16 104/63 98 08/25/24 06:37 98.2 F 64 16 115/66 98 08/25/24 05:37 98.1 F 62 18 121/71 98 08/25/24 05:34 08/25/24 05:07 98.2 F 62 16 119/71 97 08/25/24 04:52 98.4 F 60 16 127/76 98 08/25/24 04:33 98.4 F 60 16 120/71 99 08/25/24 04:15 98.4 F 60 16 120/71 99 08/25/24 03:27 68 08/25/24 03:15 98.1 F 71 16 143/76 H 98 08/25/24 02:15 97.5 F L 86 20 126/84 97 08/25/24 01:45 98.2 F 67 18 124/60 97 08/25/24 01:30 98.1 F 68 18 122/54 L 97 08/25/24 01:25 97.9 F 70 16 125/62 99 08/25/24 01:20 98.2 F 70 18 126/60 98 08/25/24 01:12 98.6 F 70 24 124/57 L 99 08/24/24 23:03 73 08/24/24 23:02 97 08/24/24 23:02 80 18 153/76 H 97 08/24/24 23:02 96 08/24/24 22:35 97.9 F 72 18 135/62 97 O2 Del Method 08/25/24 09:38 08/25/24 08:51 Room Air 08/25/24 07:11 08/25/24 07:06 08/25/24 06:37 08/25/24 05:37 08/25/24 05:34 Room Air 08/25/24 05:07 08/25/24 04:52 08/25/24 04:33 08/25/24 04:15 08/25/24 03:27 08/25/24 03:15 08/25/24 02:15 08/25/24 01:45 08/25/24 01:30 08/25/24 01:25 08/25/24 01:20 08/25/24 01:12 08/24/24 23:03 08/24/24 23:02 Room Air 08/24/24 23:02 Room Air 08/24/24 23:02 Room Air 08/24/24 22:35 Room Air PG Care Time/CCT Total # of Minutes Spent Total Time Spent with Patient: Total time spent is greater than 50% in coordination of care (as documented) at patient's floor/unit and/or counseling patient: Coding Level of Care Code 77635 SUB INP/OBS CARE 2/35MIN Diagnoses GI bleed K92.2 Symptomatic anemia D64.9 Ischemic cardiomyopathy I25.5 Chest pain R07.9 Status post insertion of drug-eluting stent into left anterior descending (LAD) artery Z95.5 Time Spent (min) 35
[2024-08-25] MEDS ORDERED: SODIUM CHLORIDE 0.9% 50 ML IV PRN (12:02)
[2024-08-25] MEDS ORDERED: SODIUM CHLORIDE 0.9% 100 ML IV PRN (12:02)
[2024-08-25 18:37] LABS: Hematocrit (blood only) 25.8 % (37.0-47.0); Hemoglobin 8.2 g/dl (12.0-16.0)
[2024-08-26] MEDS ORDERED: cefTRIAXone SODIUM 2,000 MG/50 ML BAG IV SCH (01:00)
[2024-08-26 01:05] LABS: Hematocrit (blood only) 25.8 % (37.0-47.0)
[2024-08-26 07:53] LABS: Basophils # (auto) 0.04 K/uL (0.00-0.20); Basophils % (auto) 0.8 %; Eosinophils # (auto) 0.21 K/uL (0.00-0.50); Eosinophils % (auto) 4.4 %; Hematocrit (blood only) 24.5 % (37.0-47.0); Hemoglobin 7.6 g/dl (12.0-16.0); Immature Granulocytes # (auto) 0.01 K/uL (0.01-0.20); Immature Granulocytes % (auto) 0.2 %; Lymphocytes # (auto) 1.25 K/uL (1.20-3.40); Lymphocytes % (auto) 26.5 %; Mean Corpuscular Hemoglobin 25.6 pg (25.0-34.0); Mean Corpuscular Volume 82.5 fL (80.0-100.0); Mean Platelet Volume 10.2 fL (9.4-12.4); Monocytes # (auto) 0.61 K/uL (0.11-0.59); Monocytes % (auto) 12.9 %; Neutrophils % (auto) 55.2 %; Platelet Count 219 K/uL (130-400); RDW Coefficient of Variation 17.5 % (11.5-14.5); RDW Standard Deviation 53.4 fL (36.4-46.3); Red Blood Count 2.97 M/uL (4.20-5.40); White Blood Count 4.72 K/ul (4.8-10.8)
[2024-08-26 08:16] LABS: Albumin Globulin Ratio 1.7 (0.9-2); Albumin Level 3.2 gm/dl (3.4-5.0); BUN Creatinine Ratio 26.4 (10-20); Bilirubin,Total 1.5 mg/dl (0.2-1.0); Creatinine Clr Calc Pharmacy 49.9 ml/min; Globulin 1.9 gm/dl (2.5-4.0); Magnesium 2.1 mg/dl (1.7-2.4); Potassium 3.8 mmol/L (3.5-5.1); Total Protein 5.1 gm/dl (6.0-8.3)
[2024-08-26 08:18] LABS: Hypochromasia Present; Poikilocytosis Present
[2024-08-26 08:22] LABS: Troponin I High Sensitivity 10.2 pg/ml (0-14)
[2024-08-26 08:35] LABS: Partial Thromboplastin Ratio 0.9; Partial Thromboplastin Time 23 Seconds (21-31)
--- NOTE | 2024-08-26 08:44 | Cardiology Progress Note ---
Date of Service August 26, 2024 Assessment & Plan (1) GI bleed: (2) Status post insertion of drug-eluting stent into left anterior descending (LAD) artery: (3) Elevated troponin level: (4) On amiodarone therapy: (5) Chest pain: Plan 1. GI bleed: She had a severe GI bleed and requires evaluation, that is underway. In the meantime her platelet inhibition might be contributing to the bleed and is currently on hold. 2. Coronary disease with stent placement: This was done in mid April, it has therefore been 3 months and she has been maintained on platelet inhibition. Although not ideal holding platelet inhibition at this point is probably indicated due to its effect on the GI bleeding, I think it is acceptable to hold it for the time being. Dual platelet inhibition should be reinitiated once the bleed location has been identified and treated. 3. Elevated troponin: Her high-sensitivity troponin was minimally elevated on only 1 reading and has now normalized, it is actually surprisingly low given this scenario suggesting she does not have much ischemia. I do not believe that this indicates an acute event and would not pursue further evaluation at this time. 4. Amiodarone therapy: I am not sure why she was still on amiodarone, during her acute presentation in April 2024 with a STEMI she had ventricular arrhythmias and was started on it, I do not think that she needs to remain on it and I have discontinued it. 5. Chest discomfort: She has had stable "angina" since her stent placement which has been attributed to her jailed artery at stent placement. However it is interesting that she had quite severe prolonged chest discomfort the day of admission, taking 8 nitroglycerin without relief, and yet having an significant troponin rise. It is conceivable that her chest discomfort is actually something like peptic ulcer disease mistaken for angina. I would recommend proceeding with EGD as planned. Admission and Anticipated Discharge Date Admission Date: August 25, 2024 Subjective She is feeling very well today, she has been ambulating in the hallway and has had no further chest discomfort (although she does have some nonspecific upper abdominal discomfort different than what she had before) and has no shortness of breath with ambulation now that her blood count has increased. No cardiovascular complaints. Physical Exam Physical Exam: Constitutional: Alert, cooperative and in no distress. HEENT: Unremarkable Neck: No jugular venous distention, carotid pulses are normal and equal bilaterally without bruits. Pulmonary: Clear to auscultation bilaterally. Cardiac: Regular rhythm with no murmur, gallop or rub. Abdomen: Soft, nontender with normal bowel sounds. Extremities: No edema. Neurologic: No focal findings. Skin: No rash, ecchymoses or petechiae. Results & Data Vital Signs (Past 12 Hours) Vital Signs Temp Pulse Pulse Resp BP Pulse Ox O2 Del Method 08/26/24 02:26 36.6 C 58 L 20 109/65 95 Room Air 08/26/24 01:05 66 08/25/24 23:22 36.3 C L 62 14 109/68 93 Room Air 08/25/24 21:04 Room Air Laboratory Results Cardiac Enzymes 08/25/24 08/25/24 08/26/24 Range/Units 08:14 17:50 06:55 AST 13 13 (13-39) U/L Troponin I High Sens 23.0 H D 14.2 H D 10.2 D (0-14) pg/ml Coagulation 08/25/24 08/26/24 Range/Units 08:14 06:55 PT 11.1 11.0 (9.0-12.0) Seconds APTT 23 (21-31) Seconds CBC 08/25/24 08/25/24 08/26/24 Range/Units 08:14 17:50 00:44 WBC 4.94 (4.8-10.8) K/ul RBC 2.79 L (4.20-5.40) M/uL Hgb 6.9 L* 8.2 L 8.0 L (12.0-16.0) g/dl Hct 22.6 L 25.8 L 25.8 L (37.0-47.0) % Plt Count 234 (130-400) K/uL Neut # (Auto) 2.69 (1.40-6.50) K/uL Lymph # (Auto) 1.47 (1.20-3.40) K/uL [place] # (Auto) 0.64 H (0.11-0.59) K/uL Eos # (Auto) 0.10 (0.00-0.50) K/uL Baso # (Auto) 0.03 (0.00-0.20) K/uL 08/26/24 Range/Units 06:55 WBC 4.72 L (4.8-10.8) K/ul RBC 2.97 L (4.20-5.40) M/uL Hgb 7.6 L (12.0-16.0) g/dl Hct 24.5 L (37.0-47.0) % Plt Count 219 (130-400) K/uL Neut # (Auto) 2.60 (1.40-6.50) K/uL Lymph # (Auto) 1.25 (1.20-3.40) K/uL [place] # (Auto) 0.61 H (0.11-0.59) K/uL Eos # (Auto) 0.21 (0.00-0.50) K/uL Baso # (Auto) 0.04 (0.00-0.20) K/uL Comprehensive Metabolic Panel 08/25/24 08/26/24 Range/Units 08:14 06:55 Sodium 143 143 (136-145) mmol/L Potassium 3.9 3.8 (3.5-5.1) mmol/L Chloride 114 H 113 H (98-107) mmol/L Carbon Dioxide 24 25 (21-32) mmol/L BUN 26 H 23 (6-23) mg/dl Creatinine 0.82 0.87 (0.6-1.2) mg/dl Glucose 94 97 (70-99(Fasting)) mg/dl Calcium 8.0 L 8.0 L (8.6-10.3) mg/dl AST 13 13 (13-39) U/L ALT 8 7 (7-52) U/L Alkaline Phosphatase 55 56 (34-104) U/L Total Protein 5.2 L 5.1 L (6.0-8.3) gm/dl Albumin 3.3 L 3.2 L (3.4-5.0) gm/dl Intake and Output 08/25/24 08/26/24 08/26/24 22:59 06:59 14:59 Intake Total 793 / 1548.333 345.333 / 1548.333 Balance 793 / 1548.333 345.333 / 1548.333 Intake: IV 183 / 528.333 245.333 / 528.333 PANTOprazole 40 mg In Dextrose 183 / 478.333 195.333 / 478.333 5% Mini-B 100 ml @ 8 MG/HR 20 mls/hr IV Q5H [facility] Rx#:[id number] cefTRIAXone SODIUM 2,000 mg In 50 / 50 50 ml @ 100 mls/hr IV Q24H [facility] Rx#:[id number] Oral 300 / 400 100 / 400 Intake (Blood Product) Amt 310 / 620 Packed Cells, Leukoreduced 310 / 310 Unit [id number] Other: # Unmeasured Voids 1 Weight 94.6 kg Diagnostic Findings Telemetry: Sinus rhythm, typically in the 60s. No significant arrhythmia. PG Care Time/CCT Total # of Minutes Spent Total Time Spent with Patient: Total time spent is greater than 50% in coordination of care (as documented) at patient's floor/unit and/or counseling patient: Coding Level of Care Code 46900 SUB INP/OBS CARE 2/35MIN Diagnoses GI bleed K92.2 Status post insertion of drug-eluting stent into left anterior descending (LAD) artery Z95.5 Elevated troponin level R79.89 On amiodarone therapy Z79.899 Chest pain R07.9
--- NOTE | 2024-08-26 09:49 | Gastroenterology Progress Note ---
Date of Service August 26, 2024 Assessment & Plan (1) GI bleed: Plan: She seems stable now. Plan for EGD tomorrow. Procedure and risks discussed Admission and Anticipated Discharge Date Admission Date: August 25, 2024 Subjective Feeling well. No complaints. H/H are stable Physical Exam Physical Exam: She looks comfortable Constitutional: WD/WN, vitals as above Results & Data Vital Signs (Past 12 Hours) Vital Signs Temp Pulse Pulse Resp BP Pulse Ox O2 Del Method 08/26/24 08:40 36.7 C 63 20 136/79 98 Room Air 08/26/24 02:26 36.6 C 58 L 20 109/65 95 Room Air 08/26/24 01:05 66 08/25/24 23:22 36.3 C L 62 14 109/68 93 Room Air
--- NOTE | 2024-08-26 10:40 | Hospitalist Progress Note ---
Date of Service August 26, 2024 Assessment & Plan (1) GI bleed: (2) Symptomatic anemia: (3) Ischemic cardiomyopathy: (4) Chest pain: (5) Status post insertion of drug-eluting stent into left anterior descending (LAD) artery: Plan The patient is a 89-year-old female with past medical history including ischemic cardiomyopathy, PVCs, NSTEMI, mitral regurgitation, hypertension, insomnia, osteoarthritis, hyperlipidemia, HFrEF with ejection fraction 35 to 40%. She has been told by cardiology that due to a jailed diagonal vessel she would likely continue with low levels of angina.The patient presents to the emergency department with worsening chest pain and shortness of breath, reports utilizing a sublingual nitroglycerin today with no significant improvement in symptoms. The patient reports that she had noted some gradually worsening darkening of her stools, after having undergone a STEMI and placed on aspirin and Brilinta during admission from 05/07-05/10/2024 at [facility] postcardiac catheterization. She reports that since the past 4 to 6 weeks, she has been having gradually worsening fatigue, shortness of breath, dyspnea on exertion, and has noted gradually worsening of her stools from initially being dark to being more tarry. Upon arrival to the emergency department, patient had laboratories performed which showed a hemoglobin of 4.6, with most recent during admission of 05/20 of 12.5. She has been ordered 2 units PRBCs from the ED, and started on pantoprazole bolus and drip, and [facility] #Upper GI bleed/symptomatic anemia- Hemoglobin 4.6 on admission, with previous baseline 12.5 most likely upper GI bleed due to ASA and Brillinta use She is now s/p transfusion of 3 units of blood, hb 7.6 Cardiology Ok with holding Brillinta until EGD on Tuesday Continue pantoprazole bolus/drip Appreciate GI recs #Status post DANNIE to LAD on 05/07/2024/ischemic cardiomyopathy- At this point her angina is likely associated to anemia, and treatment is to be transfused as noted Most recent echocardiogram on 08/07/2024 with ejection fraction 55-60%, moderate mitral vegetation, moderate tricuspid regurgitation, severe left atrial enlargement. Discontinue Amiodarone Appreciate cardiology #Chronic medical conditions: Hyperlipidemia-temporarily hold atorvastatin while n.p.o. Vitamin D deficiency-temporarily holding vitamin D3 supplement For EGD on Tuesday Admission and Anticipated Discharge Date Admission Date: August 25, 2024 Subjective patient seen and examined, no new complaints Review of Systems Review of Systems: All systems reviewed are negative, apart from the ones contained in the history. Physical Exam Physical Exam: The patient is awake, alert and oriented 3, well developed and well nourished, normocephalic and atraumatic, lying in bed and in no acute distress. HEENT--PERRL, EOMI, mucous membranes and oropharynx mildly dry Neck--supple. No JVD. No bruits. Thyroid normal, trachea midline, no adenopathy. Heart--normal S1 and S2. No murmurs, rubs or gallops. Lungs--clear bilaterally, no respiratory distress, no accessory muscle use. Abdomen--normal bowel sounds and soft. Extremities--no cyanosis or clubbing. No edema. Dermatologic--normal skin turgor, normal color, no abnormal lymph nodes, no rash. Neurologic--cranial nerves II through XII grossly intact. Rheumatologic--normal range of motion. Psychiatric--normal affect. Results & Data Results & Data Vital Signs (Past 12 Hours) Vital Signs Temp Pulse Pulse Resp BP Pulse Ox O2 Del Method 08/26/24 08:40 98.1 F 63 20 136/79 98 Room Air 08/26/24 02:26 97.9 F 58 L 20 109/65 95 Room Air 08/26/24 01:05 66 08/25/24 23:22 97.3 F L 62 14 109/68 93 Room Air PG Care Time/CCT Total # of Minutes Spent Total Time Spent with Patient: Total time spent is greater than 50% in coordination of care (as documented) at patient's floor/unit and/or counseling patient: Coding Level of Care Code 92842 SUB INP/OBS CARE 2/35MIN Diagnoses GI bleed K92.2 Symptomatic anemia D64.9 Ischemic cardiomyopathy I25.5 Chest pain R07.9 Status post insertion of drug-eluting stent into left anterior descending (LAD) artery Z95.5 Time Spent (min) 35
[2024-08-26] MEDS: POLYETHYLENE (MIRALAX) 17 GM PACK PO PRN (20:33)
[2024-08-27 07:24] LABS: Albumin Globulin Ratio 1.7 (0.9-2); Albumin Level 3.2 gm/dl (3.4-5.0); BUN Creatinine Ratio 19.2 (10-20); Bilirubin,Total 1.3 mg/dl (0.2-1.0); Calcium 8.5 mg/dl (8.6-10.3); Creatinine Clr Calc Pharmacy 43.6 ml/min; Globulin 1.9 gm/dl (2.5-4.0); Potassium 3.8 mmol/L (3.5-5.1); Total Protein 5.1 gm/dl (6.0-8.3)
[2024-08-27 07:40] LABS: Basophils # (auto) 0.04 K/uL (0.00-0.20); Basophils % (auto) 0.7 %; Eosinophils # (auto) 0.21 K/uL (0.00-0.50); Eosinophils % (auto) 3.7 %; Hematocrit (blood only) 24.7 % (37.0-47.0); Hemoglobin 7.7 g/dl (12.0-16.0); Immature Granulocytes # (auto) 0.01 K/uL (0.01-0.20); Immature Granulocytes % (auto) 0.2 %; Lymphocytes # (auto) 1.32 K/uL (1.20-3.40); Lymphocytes % (auto) 23.5 %; Mean Corpuscular Hemoglobin 25.8 pg (25.0-34.0); Mean Corpuscular Hgb Conc 31.2 g/dL (32.0-36.0); Mean Corpuscular Volume 82.6 fL (80.0-100.0); Mean Platelet Volume 10.4 fL (9.4-12.4); Monocytes # (auto) 0.74 K/uL (0.11-0.59); Monocytes % (auto) 13.2 %; Neutrophils # (auto) 3.29 K/uL (1.40-6.50); Neutrophils % (auto) 58.7 %; Platelet Count 226 K/uL (130-400); RDW Coefficient of Variation 18.4 % (11.5-14.5); RDW Standard Deviation 55.5 fL (36.4-46.3); Red Blood Count 2.99 M/uL (4.20-5.40); White Blood Count 5.61 K/ul (4.8-10.8)
[2024-08-27 07:45] LABS: Partial Thromboplastin Ratio 0.9; Partial Thromboplastin Time 23 Seconds (21-31)
[2024-08-27 08:12] LABS: Poikilocytosis Present; Polychromasia 1+
[2024-08-27] MEDS: SODIUM CHLORIDE 0.9% 1,000 ML IV SCH (10:01)
--- NOTE | 2024-08-27 12:12 | Hospitalist Progress Note ---
Date of Service August 27, 2024 Assessment & Plan (1) GI bleed: Plan: Suspected upper GI source based on presentation with melena. Antiplatelet agents have been discontinued per cardiology. Amiodarone has also been discontinued. Continue telemetry. Appreciate GI consultation. She currently is n.p.o. on a Protonix drip. (2) Symptomatic anemia: Plan: She received 2 units packed red blood cells on admission for hemoglobin 4.6. Hemoglobin improved to 8.2 and is now drifted down to 7.7. Will follow. Transfuse as necessary (3) Ischemic cardiomyopathy: Plan: Stable. Continue current medical management except for antiplatelet therapy (4) Chest pain: Plan: Present on admission. Now resolved. No evidence of acute coronary syndrome (5) Status post insertion of drug-eluting stent into left anterior descending (LAD) artery: Plan: Recent anterior wall SD April 2024. She had an LAD stent placed at that time. Antiplatelet therapy is currently on hold Plan Hopeful discharge to home when stable. Hopefully within the next day or 2 Admission and Anticipated Discharge Date Admission Date: August 25, 2024 Subjective Alert and oriented. No distress. GI consultation appreciated. Awaiting EGD later today, August 27. She is currently NPO. IV fluids have been ordered. Hemoglobin is down to 7.7. She already has received 2 units packed red blood cells this admission for hemoglobin 4.6 on admission. Will follow. Review of Systems 2 Review of Systems: Constitutionalno fever or chills ENTno blurred vision, no double vision, no epistaxis, no sore throat Respiratoryno cough, no wheezing, no shortness of breath Cardiacno palpitations, no chest pain, no syncope Judah nausea, vomiting, diarrhea, hematochezia GUno urinary retention, no urinary incontinence, no dysuria, no hematuria Musculoskeletalno joint pain, no muscle tenderness Skinno bruising, no rashes, no pruritus Neurono isolated weakness, no paresthesia, no weakness Psychno depression, no anxiety Physical Exam 2 Physical Exam: General-alert and oriented x3, no fever, no chills HEENT-head atraumatic and normocephalic, pupils equal and reactive to light, extraocular muscles intact Neck-no lymphadenopathy or thyromegaly, trachea midline Chest-clear to auscultation. No rales, wheezing or rhonchi Cardiac-regular rate and rhythm, normal S1 and S2 Abdomen-normal bowel sounds, no hepatosplenomegaly Extremities-no cyanosis, clubbing, or edema Neuro-cranial nerves II through XII intact, motor and sensory function within normal limits, strength symmetrical, no focal deficits Psych-normal affect, normal mood Results & Data Results & Data Vital Signs (Past 12 Hours) Vital Signs Temp Pulse Pulse Resp BP Pulse Ox O2 Del Method 08/27/24 08:00 63 08/27/24 08:00 Room Air 08/27/24 08:00 36.6 C 70 16 118/59 L 96 Room Air 08/27/24 03:42 36.7 C 66 14 103/61 95 Room Air Laboratory Results 08/27/24 06:15 08/27/24 06:15 PG Care Time/CCT Total # of Minutes Spent Total Time Spent with Patient: Total time spent is greater than 50% in coordination of care (as documented) at patient's floor/unit and/or counseling patient: Coding Level of Care Code 63959 SUB INP/OBS CARE 3/50MIN Diagnoses GI bleed K92.2 Symptomatic anemia D64.9 Ischemic cardiomyopathy I25.5 Chest pain R07.9 Status post insertion of drug-eluting stent into left anterior descending (LAD) artery Z95.5
--- NOTE | 2024-08-27 12:52 | History & Physical Report ---
Date of Service August 27, 2024 Assessment & Plan (1) GI bleed: Plan: Pleasant lady with melena. Procedure and risks discussed. She agrees Admission and Anticipated Discharge Date Admission Date: August 25, 2024 History of Present Illness Chief Complaint: For EGD Primary Care Provider: Shivani Kamara MD Patient admitted with bleeding. She is here for EGD Allergies Allergy/AdvReac Type Severity Reaction Status Date / Time neomycin Allergy Mild redness Verified 08/27/24 12:45 Sulfa (Sulfonamide Allergy Mild GI Verified 08/27/24 12:45 Antibiotics) upset/colitis Home Medications Medication Instructions Recorded Confirmed Type cholecalciferol (vitamin D3) 50 50 mcg PO QAM 09/02/21 08/25/24 History mcg (2,000 unit) capsule multivitamin 1 tab PO QAM 09/02/21 08/25/24 History diclofenac sodium 1 % topical gel 4 g topical QID PRN Pain #100 grams 11/19/22 08/25/24 Rx (Voltaren Arthritis Pain) lactobacillus combination no.9 4 4,000 mmu cells PO DAILY 09/30/23 08/25/24 History billion cell capsule (Adult 50 Plus Probiotic) amiodarone 200 mg tablet 200 mg PO BIDM #60 tabs 05/10/24 08/25/24 Rx aspirin 81 mg tablet,delayed 81 mg PO QAM #0 tabs 05/10/24 08/27/24 Rx release atorvastatin 40 mg tablet 40 mg PO QAM #90 tabs 06/10/24 08/25/24 Rx metoprolol succinate 25 mg 25 mg PO QAM #90 tabs 06/10/24 08/25/24 Rx tablet,extended release 24 hr ticagrelor 90 mg tablet (Brilinta) 90 mg PO BID #180 tabs 07/10/24 08/27/24 Rx furosemide 20 mg tablet 20 mg PO Q OTHER DAY #45 tabs 08/06/24 08/25/24 Rx nitroglycerin 0.4 mg sublingual 0.4 mg sublingual Q5M PRN chest 08/21/24 08/25/24 Rx tablet (Nitrostat) pain #20 tabs Past Med/Surg History Problem List On amiodarone therapy Elevated troponin level Elevated troponin I level Status post insertion of drug-eluting stent into left anterior descending (LAD) artery Symptomatic anemia Chest pain (Acute) GI bleed (Acute) Ischemic cardiomyopathy Dyspnea PVCs (premature ventricular contractions) ST elevation (STEMI) myocardial infarction (Acute) Aortic valve sclerosis Mild mitral regurgitation by prior echocardiogram Osteoporosis Chronic knee pain after total replacement of knee joint 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, right Right knee DJD HTN (hypertension) (Chronic) Insomnia (Chronic) Osteoarthritis (Chronic) Hyperlipidemia Medical History History of placement of stent in LAD coronary artery Osteoarthritis Prediabetes Hgb A1C 5.7 on 09/02/21 Diverticulitis September 2021 No current issues Hx of hiatal hernia Hx of gastroesophageal reflux (GERD) Well controlled and stable Sleep apnea Hx; "lost weight, no longer need my machine" Did not get additional sleep study Surgical History History of open reduction and internal fixation (ORIF) procedure rt ankle History of esophagogastroduodenoscopy (EGD) Hx of colonoscopy Hx of cataract extraction rt/lt Hx of appendectomy S/P tubal ligation S/P tonsillectomy S/P cholecystectomy Status post total left knee replacement Family History Sister Breast cancer Other Heart disease Denies family history of Ovarian cancer Prostate cancer Lung cancer Colorectal cancer Social History Smoking Status: Former smoker Tobacco Type: Cigarettes Age Started Using Tobacco: 25; Age Quit Using Tobacco: 56; packs per day: 1; Second Hand Exposure: No; Do You Dip or Chew Tobacco: No; Tobacco Cessation Education Requested by Patient: No Hx Alcohol Use: No Hx Substance Use: No Preferred Language: Georgian Communication Ability: Effective Supervisor Model Making Required: No Beliefs That Will Affect Care: None marital status: / Current Living Situation: Family Current Living Situation Comment: Home with daughter current occupational status: retired current occupation: Retired Other Information That Helps Us Care for You: No Feels Safe at Home: Yes Safety Concerns: Feels Safe At This Time Childhood Exposure to Second-Hand Smoke: Yes Diet: regular caffeine: Yes Dental Care, Regularly: No Seatbelt Use: always Sunscreen Use: Yes Assistive Devices: Denture - Upper and Glasses Physical Exam Constitutional: WD/WN, vitals as above Neck: trachea midline, no thyromegaly Respiratory: normal respiratory effort, lungs clear to auscultation Cardiovascular: RRR, no murmur, no edema Gastrointestinal (Abdomen): normal bowel sounds, soft, nontender, no hepatosplenomegaly ASA Classification ASA ASA3 Results & Data Vital Signs (Past 12 Hours) Vital Signs Temp Pulse Pulse Pulse Resp BP BP 08/27/24 12:47 36.9 C 67 16 142/69 H 08/27/24 11:00 36.5 C 88 17 122/63 08/27/24 08:00 63 08/27/24 08:00 08/27/24 08:00 36.6 C 70 16 118/59 L 08/27/24 03:42 36.7 C 66 14 103/61 Pulse Ox O2 Del Method 08/27/24 12:47 98 Room Air 08/27/24 11:00 90 Room Air 08/27/24 08:00 08/27/24 08:00 Room Air 08/27/24 08:00 96 Room Air 08/27/24 03:42 95 Room Air Code Status & VTE Plan VTE Prophylaxis Plan VTE Prophylaxis will be ordered: Yes
--- NOTE | 2024-08-27 13:24 | GI REPORT ---
[facility] Patient: MEENA TIDWELL : 1935 Sex at : Female Age: 89 Years Procedure: Upper GI endoscopy Date: 08/27/2024 Attending Physician: Cathy Zaragoza MD Referring MD: Augustine Covington Indications: - Melena Medications: - Monitored Anesthesia Care - Propofol per Anesthesia - See the Anesthesia note for documentation of the administered medications Complications: - No immediate complications. Estimated Blood Loss: - Estimated blood loss: None. Procedure: - Prior to the procedure, a History and Physical was performed, and patient medications and allergies were reviewed. The patient's tolerance of previous anesthesia was also reviewed. The risks and benefits of the procedure and the sedation options and risks were discussed with the patient. All questions were answered, and informed consent was obtained. Prior Anticoagulants: The patient has taken Brilinta (ticagrelor), last dose was 3 days prior to procedure. ASA Grade Assessment: IV - A patient with severe systemic disease that is a constant threat to life. After reviewing the risks and benefits, the patient was deemed in satisfactory condition to undergo the procedure. - The egd scope was introduced through the mouth and advanced to the second part of the duodenum. - The upper GI endoscopy was accomplished without difficulty. - The patient tolerated the procedure well. Findings: - The examined esophagus was normal. - A medium-sized hiatal hernia was present. - One non-bleeding superficial gastric ulcers with a flat pigmented spot (Stephon Class IIc) were found in the gastric antrum and on the lesser curvature of the gastric antrum. The largest lesion was 6 mm in largest dimension. - The examined duodenum was normal. Impression: - Normal esophagus. - Medium-sized hiatal hernia. - Non-bleeding gastric ulcer with a flat pigmented spot (Stephon Class IIc). - Normal examined duodenum. - No specimens collected. Recommendation: - [facility] patient to [facility] for [facility] care. Procedure Code(s): - 41931, Esophagogastroduodenoscopy, flexible, transoral; diagnostic, including collection of specimen(s) by brushing or washing, when performed (separate procedure) Diagnosis Code(s): - K92.1, Melena (includes Hematochezia) - K44.9, Diaphragmatic hernia without obstruction or gangrene - K25.9, Gastric ulcer, unspecified as acute or chronic, without hemorrhage or perforation CPT(R) - 2023 copyright [employer]. All Rights Reserved. The CPT codes, CCI edits and ICD codes generated are intended as suggestions and were generated based on input data. These codes are preliminary and upon port drier review may be revised to meet current compliance and payer requirements. The provider is responsible for the final determination of appropriate codes, and modifiers. Dr. Cathy Zaragoza MD This document has been electronically signed. Note Initiated:08/27/2024 Note Completed:08/27/2024 1:22 PM [id number]
--- NOTE | 2024-08-27 13:42 | Electrocardiogram Report ---
Test Reason : Blood Pressure : */* mmHG Vent. Rate : 82 BPM Atrial Rate : * BPM P-R Int : * ms QRS Dur : 80 ms QT Int : 438 ms P-R-T Axes : * 3 108 degrees QTcB Int : 511 ms Sinus rhythm Low voltage QRS T wave abnormality, consider anterior ischemia Abnormal ECG When compared with ECG of 07-May-2024 11:31, Findings of anterior OK are no longer evident Confirmed by Tomas Delgado ([id number]) on 08/27/2024 1:41:42 PM Referred By: REFERRED SELF Confirmed By: Tomas Delgado
--- NOTE | 2024-08-27 13:47 | Electrocardiogram Report ---
Test Reason : Blood Pressure : */* mmHG Vent. Rate : 76 BPM Atrial Rate : * BPM P-R Int : * ms QRS Dur : 82 ms QT Int : 428 ms P-R-T Axes : * 0 95 degrees QTcB Int : 481 ms Sinus rhythm Low voltage QRS T wave abnormality, consider anterior ischemia Abnormal ECG When compared with ECG of 24-Aug-2024 22:51, (unconfirmed) No significant change was found Confirmed by Tomas Delgado ([id number]) on 08/27/2024 1:47:03 PM Referred By: REFERRED SELF Confirmed By: Tomas Delgado
--- NOTE | 2024-08-27 14:58 | Anesthesiology Progress Note ---
Date of Service August 27, 2024 Anesthesia Post Procedure Vital Signs Vital Signs: Temp Pulse Pulse Pulse Resp BP BP 08/27/24 13:52 61 16 130/61 08/27/24 13:37 57 L 16 134/63 08/27/24 13:22 65 18 122/58 L 08/27/24 12:47 36.9 C 67 16 142/69 H 08/27/24 11:00 36.5 C 88 17 122/63 08/27/24 08:00 63 08/27/24 08:00 08/27/24 08:00 36.6 C 70 16 118/59 L 08/27/24 03:42 36.7 C 66 14 103/61 08/26/24 23:43 63 08/26/24 23:11 36.7 C 61 16 134/78 08/26/24 21:31 08/26/24 20:03 36.6 C 68 20 123/62 08/26/24 15:44 36.5 C 70 18 124/76 08/26/24 15:38 61 Pulse Ox O2 Del Method 08/27/24 13:52 98 Room Air 08/27/24 13:37 95 Room Air 08/27/24 13:22 97 Room Air 08/27/24 12:47 98 Room Air 08/27/24 11:00 90 Room Air 08/27/24 08:00 08/27/24 08:00 Room Air 08/27/24 08:00 96 Room Air 08/27/24 03:42 95 Room Air 08/26/24 23:43 08/26/24 23:11 92 Room Air 08/26/24 21:31 Room Air 08/26/24 20:03 98 Room Air 08/26/24 15:44 97 Room Air 08/26/24 15:38 Pain Intensity Chest: Pain Intensity: 0 Transfer of Care Handoff Completed per policy Notes Mental Status: alert / awake / arousable Patient Amnestic to Procedure: Yes Nausea / Vomiting: adequately controlled Pain: adequately controlled Airway Patency, RR, SpO2: stable & adequate BP & HR: stable & adequate Hydration State: stable & adequate Anesthetic Complications: no major complications apparent
[2024-08-27 16:20] LABS: Hematocrit (blood only) 27.1 % (37.0-47.0); Hemoglobin 8.4 g/dl (12.0-16.0)
[2024-08-27] MEDS: SUCRALFATE 1 GM TAB PO SCH (17:00)
[2024-08-27] MEDS: LIDOCAINE 2% 2 ML VIAL/AMP(20MG/ML) INFIL ONE (19:22)
[2024-08-27] MEDS: PROPOFOL IV EMULSION 10 MG/ML 20 ML VIAL IV ONE (19:23)
[2024-08-27] MEDS: PANTOprazole 40 MG TAB PO SCH (20:21)
[2024-08-28 06:03] LABS: Basophils # (auto) 0.03 K/uL (0.00-0.20); Basophils % (auto) 0.7 %; Eosinophils # (auto) 0.19 K/uL (0.00-0.50); Eosinophils % (auto) 4.4 %; Hematocrit (blood only) 24.5 % (37.0-47.0); Hemoglobin 7.5 g/dl (12.0-16.0); Immature Granulocytes # (auto) 0.01 K/uL (0.01-0.20); Immature Granulocytes % (auto) 0.2 %; Lymphocytes # (auto) 1.06 K/uL (1.20-3.40); Lymphocytes % (auto) 24.4 %; Mean Corpuscular Hemoglobin 25.5 pg (25.0-34.0); Mean Corpuscular Hgb Conc 30.6 g/dL (32.0-36.0); Mean Corpuscular Volume 83.3 fL (80.0-100.0); Mean Platelet Volume 10.4 fL (9.4-12.4); Monocytes # (auto) 0.65 K/uL (0.11-0.59); Monocytes % (auto) 14.9 %; Neutrophils # (auto) 2.41 K/uL (1.40-6.50); Neutrophils % (auto) 55.4 %; Platelet Count 219 K/uL (130-400); RDW Coefficient of Variation 18.7 % (11.5-14.5); RDW Standard Deviation 56.9 fL (36.4-46.3); Red Blood Count 2.94 M/uL (4.20-5.40); White Blood Count 4.35 K/ul (4.8-10.8)
[2024-08-28 06:18] LABS: BUN Creatinine Ratio 18.5 (10-20); Calcium 8.3 mg/dl (8.6-10.3); Potassium 4.1 mmol/L (3.5-5.1)
[2024-08-28 06:35] LABS: Hypochromasia Present; Schistocytes 1+
[2024-08-28 08:22] VITALS: RESP 18
[2024-08-28 11:58] VITALS: TEMP 98.2; O2SAT 98
--- NOTE | 2024-08-28 12:12 | Discharge Summary ---
Discharge Summary Date of Service August 28, 2024 Principal Dx & Hospital Course #1 = Principal Diagnosis (1) GI bleed: Suspected upper GI source based on presentation with melena. Antiplatelet agents were held on admission and can be restarted tomorrow, August 29. While hospitalized she was on telemetry. Appreciate GI consultation. She underwent EGD on August 27 and was found to have a nonbleeding gastric ulcer. She has been restarted on a diet and she is now on Protonix and Carafate. (2) Symptomatic anemia: She received 2 units packed red blood cells on admission for hemoglobin 4.6. She received a blood transfusion and hemoglobin is now stable. She will continue with oral iron supplementation at discharge (3) Ischemic cardiomyopathy: Stable. Continue current medical management except for antiplatelet therapy while hospitalized. Aspirin and Brilinta can be restarted tomorrow, August 29 (4) Chest pain: Present on admission. Now resolved. No evidence of acute coronary syndrome (5) Status post insertion of drug-eluting stent into left anterior descending (LAD) artery: Recent anterior wall [place] April 2024. She had an LAD stent placed at that time. Antiplatelet therapy was held while hospitalized and will be restarted tomorrow, August 29 Plan Home today, August 28 Admission HPI Per Admitting Provider Patient admitted with bleeding. She is here for EGD Discharge Exam General-alert and oriented x3, no fever, no chills HEENT-head atraumatic and normocephalic, pupils equal and reactive to light, extraocular muscles intact Neck-no lymphadenopathy or thyromegaly, trachea midline Chest-clear to auscultation. No rales, wheezing or rhonchi Cardiac-regular rate and rhythm, normal S1 and S2 Abdomen-normal bowel sounds, no hepatosplenomegaly Extremities-no cyanosis, clubbing, or edema Neuro-cranial nerves II through XII intact, motor and sensory function within normal limits, strength symmetrical, no focal deficits Psych-normal affect, normal mood Discharge Plan Discharge Items Patient Disposition: Home - Self-Care Reason For Visit: SYMPTOMATIC ANEMIA, UGI BLEED Discharge Diagnosis: Upper GI bleed, gastric ulcer, acute blood loss anemia Activity: Resume your previous activity Non-emergency contact: Primary Care Provider Call non-emergency contact if: your symptoms worsen Follow-up/Referrals: Shivani Kamara MD [Primary Care Provider] - Diet: Regular and Heart Healthy Addtl Attending Provider Instructions: Take Protonix twice daily as directed. Take Carafate 4 times daily on an empty stomach. May resume taking low-dose aspirin and Brilinta tomorrow, August 29. Take an iron supplement daily. Amiodarone has been discontinued Pending Studies at Discharge: No Stand-Alone Forms: My [facility], Smoking Cessation Medications and DC Order Prescriptions: New sucralfate 1 gram Tablet 1 g PO QID Qty: 90 0RF pantoprazole 40 mg Tablet,Delayed Release (Dr/Ec) 40 mg PO BID Qty: 60 0RF Continued diclofenac sodium [Voltaren Arthritis Pain] 1 % gel 4 g topical QID PRN (Reason: Pain) Qty: 100 0RF Rx Instructions: unable to verify. no fill history/otc. apply to single knee, ankle up to 4 x day as needed metoprolol succinate 25 mg tablet extended release 24 hr 25 mg PO QAM Qty: 90 3RF atorvastatin 40 mg tablet 40 mg PO QAM Qty: 90 3RF Brilinta 90 mg tablet 90 mg PO BID Qty: 180 3RF furosemide 20 mg tablet 20 mg PO Q OTHER DAY Qty: 45 3RF nitroglycerin [Nitrostat] 0.4 mg tablet, sublingual 0.4 mg sublingual Q5M PRN (Reason: chest pain) Qty: 20 3RF multivitamin Tablet 1 tab PO QAM Rx Instructions: otc unable to verify cholecalciferol (vitamin D3) 50 mcg (2,000 unit) capsule 50 mcg PO QAM Rx Instructions: w/ food otc unable to verify Adult 50 Plus Probiotic 4 billion cell capsule 4,000 mmu cells PO DAILY Rx Instructions: otc. unable to verify administer with a meal aspirin 81 mg Tablet,Delayed Release (Dr/Ec) 81 mg PO QAM Qty: 0 0RF Rx Instructions: buy 81 mg aspirin over the counter Discontinued amiodarone 200 mg Tablet 200 mg PO BIDM Qty: 60 0RF Discharge Orders: Discharge Order (Routine); Ordered 08/28/24 Ordered By: Augustine Covington Admission Data Admit Date/Time: 08/25/24 01:07 Attending Provider: Augustine Covington Admit Provider: Thomas Sierra Primary Care Provider: Shivani Kamara Other Providers: Thomas Sierra; Tomas Delgado; Cathy Zaragoza Jr Hospital Stay Data Consultations 08/25/24 00:05 ED Decision to Admit Stat 08/25/24 07:44 Consult Cardiology Routine Consult Gastroenterology Routine Procedures Performed Operation Date: 08/27/24 16:45 Actual Procedures p Esophagogastroduodenoscopy - Cathy Zaragoza Jr, MD Pending Results Patient Have Any Pending Studies at Discharge: No Discharge Instructions Given to Patient (Per Discharging Provider) Take Protonix twice daily as directed. Take Carafate 4 times daily on an empty stomach. May resume taking low-dose aspirin and Brilinta tomorrow, August 29. Take an iron supplement daily. Amiodarone has been discontinued Total Time Total Time Spent Total Time Spent (In Minutes): 50 minutes Coding Level of Care Code 17247 INP/OBS DISCH >30 MIN Diagnoses GI bleed K92.2 Symptomatic anemia D64.9 Ischemic cardiomyopathy I25.5 Chest pain R07.9 Status post insertion of drug-eluting stent into left anterior descending (LAD) artery Z95.5
[2024-08-28 12:20] VITALS: BP 131/78; PULSE 88
--- NOTE | 2024-08-29 15:32 | Electrocardiogram Report ---
Test Reason : Blood Pressure : */* mmHG Vent. Rate : 71 BPM Atrial Rate : 71 BPM P-R Int : 230 ms QRS Dur : 90 ms QT Int : 464 ms P-R-T Axes : 64 32 102 degrees QTcB Int : 504 ms Sinus rhythm with 1st degree A-V block T wave abnormality, consider anterior ischemia Prolonged QT Abnormal ECG When compared with ECG of 25-Aug-2024 00:46, (unconfirmed) No significant change Confirmed by Tomas Delgado ([id number]) on 08/29/2024 3:32:24 PM Referred By: REFERRED SELF Confirmed By: Tomas Delgado
== END 2024-08-28 12:55 | disposition home or self-care (01) | DRG 378 ==
LOC: ED 22:43 → 2S 08-25 01:07 → SUATTDRO 08-25 01:07 → 2S 08-25 02:46